=== PATIENT | female | born 1965 | race Caucasian/White ===

== ENCOUNTER 2017-07-24 13:20 | Emergency (ER) | payer OTHER ==
--- NOTE | 2017-07-24 12:46 | XR ---
EXAMINATION TYPE: XR chest 2V DATE OF EXAM: 07/24/2017 COMPARISON: NONE TECHNIQUE: PA and lateral views submitted. HISTORY: Shortness of breath FINDINGS: The lungs are clear and there is no pneumothorax, pleural effusion, or focal pneumonia. There is a large bulla involving the left lung apex which has a similar appearance to the prior CT scan of 06/27. No interstitial edema. Surgical clips in the upper abdomen. IMPRESSION: 1. There is a lucency at the left lung apex which is stable from the previous CAT scan of 06/17/2016 c ompatible with a large bulla. Correlate for history of bullous emphysema.
[2017-07-24] MEDS ORDERED: ALPRAZolam 0.5 MG TAB PO STA (13:27)
--- NOTE | 2017-07-24 14:49 | NM ---
EXAMINATION TYPE: NM pul vent and perfuse DATE OF EXAM: 07/24/2017 COMPARISON: NONE HISTORY: Chest x-ray 07/24/2017 TECHNIQUE: Utilizing inhalation of 62.4 mCi Tc 99m DTPA aerosol and intravenous injection of 4.4 mCi of Tc 99m MAA, ventilation and perfusion images are acquired post injection in multiple projections. FINDINGS: There are multiple small matched defects noted bilaterally. No corresponding chest x-ray abnormality. IMPRESSION: Intermediate probability for pulmonary embolism.
[2017-07-24 15:19] VITALS: PULSE 87; RESP 18
--- NOTE | 2017-07-24 16:03 | ED ---
SOB HPI - General Chief Complaint: Shortness of Breath Time Seen by Provider: 07/24/17 15:23 Source: patient Mode of arrival: ambulatory Limitations: no limitations - History of Present Illness Initial Comments: Patient presents to the emergency Department from an outpatient nuclear medicine scan. Apparently she was seen at another hospital facility. She was sent here to outpatient radiology for a VQ scan. VQ scan shows intermediate probability. Patient at this time denies any fever, chills, chest pain or shortness of breath. She has no belly or back pain. She has no lightheadedness or dizziness. She has no nausea or vomiting. She states that she was not planning on coming to the emergency department. - Related Data Home Medications Medication Instructions Recorded Confirmed Albuterol Inhaler [Ventolin Hfa 1 - 2 puff INHALATION RT-Q6H PRN 07/24/17 Inhaler] Cyclobenzaprine [Flexeril] 5 mg PO DAILY PRN 07/24/17 07/24/17 HYDROcodone/APAP 5-325MG [[place] 1 tab PO Q6H PRN 07/24/17 07/24/17 5-325] Ibuprofen [Motrin] 600 mg PO Q6H PRN 07/24/17 07/24/17 Sulfamethox-Tmp 800-160Mg [Bactrim 1 tab PO Q12HR 07/24/17 07/24/17 DS 800-160 mg] Umeclidinium [place] [Incruse 1 puff INHALATION RT-DAILY 07/24/17 07/24/17 Ellipta] buPROPion [Wellbutrin] 75 mg PO DAILY 07/24/17 07/24/17 traMADol HCL [Ultram] 50 mg PO Q8H PRN 07/24/17 07/24/17 Allergies Allergy/AdvReac Type Severity Reaction Status Date / Time codeine Allergy Unknown Verified 07/24/17 15:35 Penicillins Allergy Unknown Verified 07/24/17 15:35 Review of Systems ROS Statement: Those systems with pertinent positive or pertinent negative responses have been documented in the HPI. ROS Other: All systems not noted in ROS Statement are negative. Past Medical History Past Medical History: No Reported History History of Any Multi-Drug Resistant Organisms: None Reported Past Surgical History: Cholecystectomy, Tubal Ligation Additional Past Surgical History / Comment(s): facial Past Psychological History: No Psychological Hx Reported Smoking Status: Current every day smoker Past Alcohol Use History: Rare Past Drug Use History: None Reported General Exam Limitations: no limitations General appearance: alert, in no apparent distress Head exam: Present: atraumatic, normocephalic, normal inspection Eye exam: Present: normal appearance, PERRL, EOMI. Absent: scleral icterus, conjunctival injection, periorbital swelling ENT exam: Present: normal exam, mucous membranes moist Neck exam: Present: normal inspection. Absent: tenderness, meningismus, lymphadenopathy Respiratory exam: Present: normal lung sounds bilaterally. Absent: respiratory distress, wheezes, rales, rhonchi, stridor Cardiovascular Exam: Present: regular rate, normal rhythm, normal heart sounds. Absent: systolic murmur, diastolic murmur, rubs, gallop, clicks GI/Abdominal exam: Present: soft, normal bowel sounds. Absent: distended, tenderness, guarding, rebound, rigid Extremities exam: Present: normal inspection, full ROM, normal capillary refill. Absent: tenderness, pedal edema, joint swelling, calf tenderness Back exam: Present: normal inspection Neurological exam: Present: alert, oriented X3, CN II-XII intact Psychiatric exam: Present: normal affect, normal mood Skin exam: Present: warm, dry, intact, normal color. Absent: rash Course Vital Signs 07/24/17 07/24/17 15:16 15:31 Temperature 98.5 F Pulse Rate 87 Respiratory 18 18 Rate Blood Pressure 120/81 O2 Sat by Pulse 98 Oximetry Medical Decision Making - Medical Decision Making Patient presented with a history of COPD, recent VQ scan of intermediate probability. However, she has a history of severe COPD with pulmonary blebs, thereby making this an inaccurate test. A d-dimer is obtained which is negative. Therefore, I do not believe there is any evidence of any abnormal blood clotting disorder. There is no reason to believe she has a DVT or pulmonary embolism today. She has no other problems or complaints. I spoke with her physician, Dr. Lafleur, on the phone. He does not believe the patient was supposed to be going to the emerge department. He states that she can be discharged as she has a follow-up appointment in his office. Patient has no other proms or complaints, and no reason for additional workup. She is stable for discharge. I encouraged her to return to the emergency department immediately if she develops any symptoms, problems, complaints of any kind whatsoever and to return to see us again anytime she might need us. She is agreeable with this plan. - Lab Data Lab Results 07/24/17 Range/Units 14:15 D-Dimer 0.43 (<0.60) mg/L FEU 07/24/17 16:03 Twelve-lead EKG shows ventricular rate 81 bpm, normal AL interval and QRS complex is, no ST elevation or depression, interpreted by me as normal sinus rhythm. Disposition Clinical Impression: COPD (chronic obstructive pulmonary disease) Disposition: HOME SELF-CARE Condition: Good Instructions: COPD (Chronic Obstructive Pulmonary Disease) (ED) Referrals: Eder Lafleur MD [Primary Care Provider] - 1-2 days Rhina Liz NPC [REFERRING] - 1-2 days Time of Disposition: 16:18
[2017-07-24 16:35] VITALS: BP 135/87; TEMP 97
== END 2017-07-24 16:33 | disposition home or self-care (01) ==
LOC: EC 13:20
DX: J44.9 Chronic obstructive pulmonary disease, unspecified (principal); F17.200 Nicotine dependence, unspecified, uncomplicated; Z79.899 Other long term (current) drug therapy
CPT/HCPCS: 99285; 93005; 85379; 71020; 78582; A9540; A9567

== ENCOUNTER 2017-09-24 10:55 | Observation (INO) | payer OTHER ==
[2017-09-24] MEDS ORDERED: ASPIRIN 81 MG PO STA (11:19)
[2017-09-24] MEDS ORDERED: NITROGLYCERIN OINT 1 INCH/GM PACKET TOPICAL STA (11:19)
[2017-09-24] MEDS ORDERED: LORazepam 2 MG/ML INJ IV STA (11:20)
--- NOTE | 2017-09-24 11:23 | ED ---
General Adult HPI - General Chief complaint: Chest Pain Stated complaint: Chest pain/sob Time Seen by Provider: 09/24/17 11:00 Source: patient, RN notes reviewed Mode of arrival: wheelchair Limitations: no limitations - History of Present Illness Initial comments: This is a 52-year-old female who presents to the emergency department with a past history of hypertension and a smoking history. Patient comes in today stating that she has had intermittent chest pain which radiates to her right arm over the last couple of days. Patient states the pain lasted 15-20 minutes and resolves. Patient states she's also been short of breath when she's been having the pain. Patient denies any diaphoresis. Patient denies any nausea or vomiting. Patient states her grandmother had heart disease. Patient denies any recent fever chills or cough. Patient denies any calf pain patient denies any leg swelling. Patient denies lightheadedness dizziness or near syncopal episode. Patient denies headache patient denies numbness weakness. Patient denies any abdominal pain patient denies any vomiting or diarrhea. - Related Data Home Medications Medication Instructions Recorded Confirmed No Known Home Medications [No 09/24/17 09/24/17 Known Home Medications] Allergies Allergy/AdvReac Type Severity Reaction Status Date / Time codeine Allergy Unknown Verified 09/24/17 11:23 Penicillins Allergy Unknown Verified 09/24/17 11:23 Review of Systems ROS Statement: Those systems with pertinent positive or pertinent negative responses have been documented in the HPI. ROS Other: All systems not noted in ROS Statement are negative. Past Medical History Past Medical History: Heart Failure, COPD History of Any Multi-Drug Resistant Organisms: None Reported Past Surgical History: Cholecystectomy, Tubal Ligation Additional Past Surgical History / Comment(s): lipoma removed, facial Past Psychological History: No Psychological Hx Reported Smoking Status: Current every day smoker Past Alcohol Use History: Rare Past Drug Use History: None Reported General Exam - General Exam Comments Initial Comments: GENERAL: Patient is well-developed and well-nourished. Patient is nontoxic and well- hydrated and is in mild distress. ENT: Neck is soft and supple. No significant lymphadenopathy is noted. Oropharynx is clear. Moist mucous membranes. Neck has full range of motion without eliciting any pain. EYES: The sclera were anicteric and conjunctiva were pink and moist. Extraocular movements were intact and pupils were equal round and reactive to light. Eyelids were unremarkable. PULMONARY: Unlabored respirations. Good breath sounds bilaterally. No audible rales rhonchi or wheezing was noted. CARDIOVASCULAR: There is a regular rate and rhythm without any murmurs gallops or rubs. ABDOMEN: Soft and nontender with normal bowel sounds. No palpable organomegaly was noted. There is no palpable pulsatile mass. SKIN: Skin is clear with no lesions or rashes and otherwise unremarkable. NEUROLOGIC: Patient is alert and oriented x3. Cranial nerves II through XII are grossly intact. Motor and sensory are also intact. Normal speech, volume and content. Symmetrical smile. MUSCULOSKELETAL: Normal extremities with adequate strength and full range of motion. No lower extremity swelling or edema. No calf tenderness. LYMPHATICS: No significant lymphadenopathy is noted PSYCHIATRIC: Normal psychiatric evaluation. Normal interpersonal interactions appears functionally intact in deals appropriately with others. Patient is moderately anxious Limitations: no limitations Course Vital Signs 09/24/17 09/24/17 09/24/17 10:56 11:21 11:58 Temperature 97.4 F L Pulse Rate 117 H 98 Pulse Rate [ 104 H [employer] ] Respiratory 18 16 Rate Blood Pressure 185/94 158/77 O2 Sat by Pulse 99 96 Oximetry Medical Decision Making - Medical Decision Making Patient's EKG shows sinus tachycardia 105 bpm OH interval is 146 QRS is 66 QT interval 344 QTC is 454. Patient's EKG shows no ST segment elevation or depression or T wave abnormalities are noted. Chest x-ray showed no acute abnormality. Patient was started on heparin because of her intermittent symptoms which are consistent with unstable angina. I spoke with Dr. Martinez he agreed to admit the patient admitted the patient I consult to cardiology I continue the patient heparin and aspirin and Nitropaste on the floor. - Lab Data Result diagrams: 09/24/17 11:15 09/24/17 11:15 Lab Results 09/24/17 09/24/17 09/24/17 Range/Units 11:15 11:15 11:15 WBC 9.4 (3.8-10.6) k/uL RBC 5.48 H (3.80-5.40) m/uL Hgb 16.0 (11.4-16.0) gm/dL Hct 48.2 H (34.0-46.0) % MCV 88.0 (80.0-100.0) fL MCH 29.2 (25.0-35.0) pg MCHC 33.2 (31.0-37.0) g/dL RDW 12.2 (11.5-15.5) % Plt Count 329 (150-450) k/uL Neutrophils % 41 % Lymphocytes % 49 % Monocytes % 5 % Eosinophils % 1 % Basophils % 1 % Neutrophils # 3.8 (1.3-7.7) k/uL Lymphocytes # 4.6 (1.0-4.8) k/uL Monocytes # 0.5 (0-1.0) k/uL Eosinophils # 0.1 (0-0.7) k/uL Basophils # 0.1 (0-0.2) k/uL Sodium 142 (137-145) mmol/L Potassium 4.0 (3.5-5.1) mmol/L Chloride 105 (98-107) mmol/L Carbon Dioxide 24 (22-30) mmol/L Anion Gap 13 mmol/L BUN 11 (7-17) mg/dL Creatinine 0.97 (0.52-1.04) mg/dL Est GFR (MDRD) Af Amer >60 (>60 ml/min/1.73 sqM) Est GFR (MDRD) Non-Af >60 (>60 ml/min/1.73 sqM) Glucose 108 H (74-99) mg/dL Calcium 10.5 H (8.4-10.2) mg/dL Magnesium 2.1 (1.6-2.3) mg/dL Total Bilirubin 0.7 (0.2-1.3) mg/dL AST 26 (14-36) U/L ALT 25 (9-52) U/L Alkaline Phosphatase 127 H (38-126) U/L Total Creatine Kinase 98 (30-135) U/L CK-MB (CK-2) <0.2 (0.0-2.4) ng/mL CK-MB (CK-2) Rel Index Troponin I <0.012 (0.000-0.034) ng/mL Total Protein 8.5 H (6.3-8.2) g/dL Albumin 4.6 (3.5-5.0) g/dL Critical Care Time Critical Care Time: Yes Total Critical Care Time: 35 Disposition Clinical Impression: Unstable angina pectoris Disposition: ADMITTED IP TO THIS HOSP Referrals: Gee Martinez MD [Primary Care Provider] - 1-2 days Time of Disposition: 12:56
[2017-09-24 11:36] LABS: Basophils # (A) 0.1 k/uL (0-0.2); Basophils % (A) 1 %; Eosinophils # (A) 0.1 k/uL (0-0.7); Eosinophils % (A) 1 %; HCT 48.2 % (34.0-46.0); Lymphocytes # (A) 4.6 k/uL (1.0-4.8); Lymphocytes % (A) 49 %; MCH 29.2 pg (25.0-35.0); MCHC 33.2 g/dL (31.0-37.0); Mean Platelet Volume 6.6; Monocytes # (A) 0.5 k/uL (0-1.0); Monocytes % (A) 5 %; Neutrophils # (A) 3.8 k/uL (1.3-7.7); Neutrophils % (A) 41 %; Platelet Count 329 k/uL (150-450); RBC 5.48 m/uL (3.80-5.40); RDW 12.2 % (11.5-15.5); WBC 9.4 k/uL (3.8-10.6)
[2017-09-24 11:53] LABS: ALT 25 U/L (9-52); AST 26 U/L (14-36); Albumin 4.6 g/dL (3.5-5.0); Alkaline Phosphatase 127 U/L (38-126); Anion Gap 13 mmol/L; Blood Urea Nitrogen 11 mg/dL (7-17); Calcium 10.5 mg/dL (8.4-10.2); Carbon Dioxide 24 mmol/L (22-30); Chloride 105 mmol/L (98-107); Glucose 108 mg/dL (74-99); Magnesium 2.1 mg/dL (1.6-2.3); Sodium 142 mmol/L (137-145); Total Bilirubin 0.7 mg/dL (0.2-1.3); Total Protein 8.5 g/dL (6.3-8.2)
[2017-09-24 11:58] LABS: Creatine Kinase 98 U/L (30-135)
--- NOTE | 2017-09-24 12:05 | XR ---
EXAMINATION TYPE: XR chest 2V DATE OF EXAM: 09/24/2017 COMPARISON: 07/24/2017 HISTORY: Chest pain and shortness of breath and emphysema TECHNIQUE: Frontal and lateral views of the chest are obtained. FINDINGS: There is no focal air space opacity, pleural effusion, or pneumothorax seen. The cardiac silhouette size is within normal limits. The osseous structures are intact. Bullous emphysematous c hanges of the left lung apex are again demonstrated. IMPRESSION: No acute cardiopulmonary process, unchanged from the prior. Left apical bullous emphysem a is unchanged.
[2017-09-24 12:11] LABS: Creatine Kinase MB <0.2 ng/mL (0.0-2.4); Troponin I <0.012 ng/mL (0.000-0.034)
[2017-09-24] MEDS ORDERED: NITROGLYCERIN SL TABS 0.4 MG TAB SUBLINGUAL PRN (12:57)
[2017-09-24] MEDS ORDERED: HEPARIN SODIUM,PORCINE 5,000 UNIT/ML 1 ML VIAL IV ONE (12:59)
[2017-09-24] MEDS ORDERED: LORazepam 2 MG/ML INJ IV PRN (12:59)
[2017-09-24] MEDS ORDERED: HEPARIN SOD,PORK IN 0.45% NACL 25,000 UNIT in 0.45% NACL 1 500ML.BAG IV SCH (13:00)
[2017-09-24 13:04] LABS: Partial Thromboplastin Time 21.2 sec (22.0-30.0)
--- NOTE | 2017-09-24 15:54 | HP ---
HISTORY AND PHYSICAL DATE OF ADMISSION: 09/24/2017 CHIEF COMPLAINTS: Chest pain and shortness of breath. This is a 52-year-old white female who was brought to the emergency room with the chief complaint of chest pain. The patient was having pressure-like midsternal chest pain for the past 2-3 days. This came intermittently and lasted for about 30 minutes. This was associated with increasing shortness of breath and also sometimes the pressure radiates to the back. The patient denies any cough, but she is known to have chronic obstructive pulmonary disease and emphysema. In the ER, her EKG did not show any acute changes. Her chest x-ray showed left apical bullous emphysema and COPD, but there was no acute process. The cardiac enzymes are within normal limits, troponin less than 0.012. CBC showed a WBC count of 9.4, hemoglobin 16, platelet count of 329,000; sodium 142, potassium 4, BUN 11, creatinine 0.97, glucose 108. PAST MEDICAL HISTORY: 1. She is known to have chronic obstructive pulmonary disease. 2. Hypertensive cardiovascular disease, but patient has not been taking any medication now currently. SOCIAL HISTORY: She is a smoker and she has been smoking for over 35 years and she has been smoking 1- 1/2 packs of cigarettes a day, but now she has cut down to half pack of cigarettes per day. She also has a history of bullous emphysema on the left apex. About 3 months ago she went to [facility] and she was told she has congestive heart failure and chronic obstructive pulmonary disease, but she has not been taking any medications. ALLERGIES: She has a QUESTIONABLE ALLERGY TO PENICILLIN AND CODEINE. FAMILY HISTORY: The patient's mother had chronic obstructive lung disease and father had lung cancer. REVIEW OF SYSTEMS: Patient denies any headaches. Appetite had has been good, bowels regular. She has had chest pain, as mentioned before. She also has shortness of breath, and the dyspnea especially gets worse when she gets chest pain. She has no abdominal pain. She has no polyuria or dysuria. She has no neurological symptoms. PHYSICAL EXAMINATION: Physical examination reveals a 52-year-old female who is still complaining of some chest pressure and some shortness of breath, but she is alert and oriented. There is no jaundice. There is no generalized lymphadenopathy. There are no petechiae or bruises. Temperature 97.7, pulse 104 per minute. Blood pressure at the time of arrival was 185/94 but later came down to 158/77. Examination of the ENT negative. NECK: Supple. There is no jugular venous distention. There is no goiter and there is no carotid bruit. Heart is in sinus tachycardia with a grade 2/6 systolic murmur heard over the precordium. LUNGS: Clear to auscultation and percussion. ABDOMEN: Soft and nontender. There is no mass palpable. Examination of the lower extremities reveals no pitting edema. Neurologic examination does not reveal any localizing signs. IMPRESSION: 1. Chest pain. 2. Rule out unstable angina. 3. Rule out coronary artery disease. 4. Chronic obstructive pulmonary disease with bullous emphysema involving the left upper lobe. 5. Hypertensive cardiovascular disease. PLAN: Patient will be admitted to hospital. Will get serial EKGs and cardiac enzymes and her heart will be monitored on telemetry. Also we will get a cardiology consultation. Overall prognosis is guarded. The diagnosis, prognosis and therapeutic plans were discussed in detail with the patient. MMODL / KEISHAN: [id number] /
[2017-09-24 18:50] LABS: Creatine Kinase 72 U/L (30-135)
[2017-09-24 19:03] LABS: Creatine Kinase MB <0.2 ng/mL (0.0-2.4); Troponin I <0.012 ng/mL (0.000-0.034)
[2017-09-24] MEDS: HEPARIN SODIUM,PORCINE 5,000 UNIT/ML 1 ML VIAL IV PRN (19:05)
[2017-09-24 19:38] VITALS: RESP 18
[2017-09-24] MEDS: NITROGLYCERIN OINT 1 INCH/GM PACKET TOPICAL SCH ×2 (20:09→23:50)
[2017-09-24] MEDS: NICOTINE 14MG/24HR PATCH TRANSDERM SCH (20:09)
[2017-09-25 00:20] LABS: Cholesterol 262 mg/dL (<200); HDL Cholesterol 49 mg/dL (40-60); LDL Cholesterol,Calculated 182 mg/dL (0-99); Triglycerides 156 mg/dL (<150)
[2017-09-25] MEDS: HEPARIN SODIUM,PORCINE 5,000 UNIT/ML 1 ML VIAL IV PRN (01:08)
[2017-09-25 01:16] LABS: Creatine Kinase 67 U/L (30-135)
[2017-09-25 01:47] LABS: Creatine Kinase MB <0.2 ng/mL (0.0-2.4); Troponin I <0.012 ng/mL (0.000-0.034)
[2017-09-25] MEDS: NITROGLYCERIN OINT 1 INCH/GM PACKET TOPICAL SCH (06:34)
[2017-09-25] MEDS ORDERED: ASPIRIN 325 MG TAB PO SCH (09:00)
[2017-09-25] MEDS: NICOTINE 14MG/24HR PATCH TRANSDERM SCH (09:15)
--- NOTE | 2017-09-25 09:57 | ECHOF ---
Referral Reason:chest pain MEASUREMENTS -------- HEIGHT: 167.6 cm WEIGHT: 56.7 kg BP: 122/77 RVIDd: 2.8 cm (< 3.3) IVSd: 0.9 cm (0.6 - 1.1) LVIDd: 3.6 cm (3.9 - 5.3) LVPWd: 1.1 cm (0.6 - 1.1) IVSs: 1.3 cm LVIDs: 2.2 cm LVPWs: 1.3 cm LA Diam: 2.4 cm (2.7 - 3.8) LAESV Index (A-L): 15.10 ml/m Ao Diam: 3.2 cm (2.0 - 3.7) AV Cusp: 2.0 cm (1.5 - 2.6) MV EXCURSION: 13.536 mm (> 18.000) MV EF SLOPE: 38 mm/s (70 - 150) EPSS: 0.2 cm MV E Oscar: 0.64 m/s MV DecT: 277 ms MV A Oscar: 0.75 m/s MV E/A Ratio: 0.86 FINDINGS -------- Sinus rhythm. This was a technically adequate study. The left ventricular size is normal. Left ventricular wall thickness is normal. Overall left vent ricular systolic function is normal with, an EF between 60 - 65 %. The right ventricle is normal in size. Normal LA size by volume 22+/-6 ml/m2. The right atrium is normal in size. The aortic valve was not well visualized. Mild mitral annular calcification present. The tricuspid valve appears structurally normal. There is no pulmonic regurgitation present. The aortic root size is normal. IVC Not well visulized. There is no pericardial effusion. CONCLUSIONS -------- 1. Sinus rhythm. 2. This was a technically adequate study. 3. The left ventricular size is normal. 4. Left ventricular wall thickness is normal. 5. Overall left ventricular systolic function is normal with, an EF between 60 - 65 %. 6. The right ventricle is normal in size. 7. Normal LA size by volume 22+/-6 ml/m2. 8. The right atrium is normal in size. 9. The aortic valve was not well visualized. 10. Mild mitral annular calcification present. 11. The tricuspid valve appears structurally normal. 12. There is no pulmonic regurgitation present. 13. The aortic root size is normal. 14. IVC Not well visulized. 15. There is no pericardial effusion. BREEDER SERVICE TECHNICIAN: Andria Ruiz RDCS
--- NOTE | 2017-09-25 10:36 | P.CRDCN ---
History of Present Illness Consult date: 09/25/17 History of present illness: Mrs. Howard is a pleasant 52-year-old female with past medical history significant for COPD, hypertension, daily marijuana use and chronic tobacco use. She denies history of coronary artery disease and has never seen a tube maker for any reason. Over the previous few days she has been experiencing mid-sternal chest heaviness with radiation into the right arm described as a muscle ache for the past few days. This is associated with shortness of breath, palpitations and dizziness. She denies associated diaphoresis, nausea or vomiting. The pain is constant with no specific alleviating or aggravating factors. She has not been coughing recently and denies fever/chills. EKG reveals sinus mechanism with no acute ST or T-wave abnormalities. Chest xray is negative for an acute cardiopulmonary process. Laboratory data reviewed, hemoglobin 16, platelets 329, potassium 4, magnesium 2.1, creatinine 0.97, LDL 182, HDL 49, triglycerides 156, total cholesterol 262 , cardiac enzymes negative 3. She takes no home medications. There is no old echocardiogram, stress test or catheterization to review. Review of Systems At the time of my exam: CONSTITUTIONAL: Denies fever. Denies chills. EYES: Denies blurred vision. Denies vision changes. Denies eye pain. EARS, NOSE, MOUTH & THROAT: Denies headache. Denies sore throat. Denies ear pain. CARDIOVASCULAR: Denies chest pain. Denies shortness of breath. Denies orthopnea. Denies PND. Denies palpitations. RESPIRATORY: Denies cough. GASTROINTESTINAL: Denies abdominal pain. Denies diarrhea. Denies constipation. Denies nausea. Denies vomiting. MUSCULOSKELETAL: Complains of right arm achiness. INTEGUMENTARY: Denies pruitis. Denies rash. NEUROLOGIC: Denies numbness. Denies tingling. Denies weakness. PSYCHIATRIC: Denies anxiety. Denies depression. ENDOCRINE: Denies fatigue. Denies weight change. Denies polydipsia. Denies polyurina. GENITOURINARY: Denies burning, hematuria or urgency with micturation. HEMATOLOGIC: Denies history of anemia. Denies bleeding. Past Medical History Past Medical History: COPD, Hypertension, Osteoarthritis (OA), Pneumonia Additional Past Medical History / Comment(s): Bronhitis, pneumonia as a child, chronic low back pain, spinal stenosis, DDD, spinal bifida, chronic constipation , migraines. History of Any Multi-Drug Resistant Organisms: None Reported Past Surgical History: Cholecystectomy, Tubal Ligation Additional Past Surgical History / Comment(s): Lipoma removed from below L breast, rhinoplasty. Past Anesthesia/Blood Transfusion Reactions: No Reported Reaction Smoking Status: Current every day smoker - Past Family History Mother Family Medical History: Respiratory Disorder Additional Family Medical History / Comment(s): Mother is from pulmonary disease. Father Family Medical History: Cancer Additional Family Medical History / Comment(s): Father at age 50 yrs from lung cancer. He was a smoker. Medications and Allergies Home Medications Medication Instructions Recorded Confirmed Type No Known Home Medications [No 09/24/17 09/24/17 History Known Home Medications] Allergies Allergy/AdvReac Type Severity Reaction Status Date / Time codeine Allergy Unknown Verified 09/24/17 11:23 Penicillins Allergy Unknown Verified 09/24/17 11:23 Physical Exam Vitals: Vital Signs Temp Pulse Pulse Pulse Resp BP BP 09/25/17 04:00 97.6 F 78 18 132/71 09/24/17 23:52 97.6 F 84 18 152/91 09/24/17 23:42 18 09/24/17 19:59 18 09/24/17 19:36 98.0 F 79 18 118/71 09/24/17 14:46 09/24/17 14:45 97.9 F 80 16 144/77 09/24/17 13:00 97.3 F L 89 16 146/86 09/24/17 11:58 98 16 158/77 09/24/17 11:21 104 H 09/24/17 10:56 97.4 F L 117 H 18 185/94 Pulse Ox 09/25/17 04:00 100 09/24/17 23:52 98 09/24/17 23:42 09/24/17 19:59 09/24/17 19:36 97 09/24/17 14:46 98 09/24/17 14:45 98 09/24/17 13:00 97 09/24/17 11:58 96 09/24/17 11:21 09/24/17 10:56 99 Intake and Output 01/16/18 01/17/18 01/17/18 22:59 06:59 14:59 Intake Total 843.365 114.993 Balance 843.365 114.993 Intake: IV 120 0.9@20 60 Heparin Sod,Pork in 0.45% 60 NaCl 25,000 unit In 0.45 % NaCl 1 500ml.bag @ 12 UNITS/KG/HR 15.02 mls/hr IV .Q24H NBA Rx#: [id number] Intake, IV Titration 86.365 114.993 Amount Heparin Sod,Pork in 0.45% 86.365 114.993 NaCl 25,000 unit In 0.45 % NaCl 1 500ml.bag @ 12 UNITS/KG/HR 15.02 mls/hr IV .Q24H NBA Rx#: [id number] Oral 637 Other: Voiding Method Toilet Toilet # Voids 2 1 Blood pressure 132/71 heart rate 78 afebrile GENERAL: This is a 52-year-old female in no apparent distress at the time of my examination. HEENT: Head is atraumatic, normocephalic. Pupils are equal, round. Sclerae anicteric. Conjunctivae are clear. Mucous membranes of the mouth are moist. Neck is supple. There is no jugular venous distention. No carotid bruit is heard. LUNGS: Clear to auscultation no wheezes, rales or rhonchi. No chest wall tenderness is noted on palpation or with deep breathing. HEART: Regular rate and rhythm without murmurs, rubs or gallops. S1 and S2 heard. ABDOMEN: Soft, nontender. Bowel sounds are heard. No organomegaly noted. EXTREMITIES: No evidence of peripheral edema and no calf tenderness noted. VASCULAR: Radial and dorsalis pedis pulses palpated, no evidence of clubbing. NEUROLOGIC: Patient is awake, alert and oriented x3. Results 09/24/17 11:15 09/24/17 11:15 Cardiac Enzymes 09/24/17 09/24/17 09/24/17 Range/Units 11:15 11:15 18:07 AST 26 (14-36) U/L CK-MB (CK-2) <0.2 <0.2 (0.0-2.4) ng/mL Troponin I <0.012 <0.012 (0.000-0.034) ng/mL 09/25/17 Range/Units 00:30 AST (14-36) U/L CK-MB (CK-2) <0.2 (0.0-2.4) ng/mL Troponin I <0.012 (0.000-0.034) ng/mL Coagulation 09/24/17 09/24/17 09/25/17 Range/Units 12:09 18:07 00:30 PT 10.0 (9.0-12.0) sec APTT 21.2 L 33.0 H 36.9 H (22.0-30.0) sec 09/25/17 Range/Units 06:59 PT (9.0-12.0) sec APTT 60.5 H (22.0-30.0) sec Lipids 09/24/17 Range/Units 11:15 Triglycerides 156 H (<150) mg/dL Cholesterol 262 H (<200) mg/dL HDL Cholesterol 49 (40-60) mg/dL CBC 09/24/17 Range/Units 11:15 WBC 9.4 (3.8-10.6) k/uL RBC 5.48 H (3.80-5.40) m/uL Hgb 16.0 (11.4-16.0) gm/dL Hct 48.2 H (34.0-46.0) % Plt Count 329 (150-450) k/uL Comprehensive Metabolic Panel 09/24/17 Range/Units 11:15 Sodium 142 (137-145) mmol/L Potassium 4.0 (3.5-5.1) mmol/L Chloride 105 (98-107) mmol/L Carbon Dioxide 24 (22-30) mmol/L BUN 11 (7-17) mg/dL Creatinine 0.97 (0.52-1.04) mg/dL Glucose 108 H (74-99) mg/dL Calcium 10.5 H (8.4-10.2) mg/dL AST 26 (14-36) U/L ALT 25 (9-52) U/L Alkaline Phosphatase 127 H (38-126) U/L Total Protein 8.5 H (6.3-8.2) g/dL Albumin 4.6 (3.5-5.0) g/dL Current Medications Generic Name Dose Route Start Last Admin Trade Name Freq PRN Reason Stop Dose Admin Heparin Sodium (Porcine) 0 unit 09/24/17 18:59 01/17/18 01:08 Heparin IV 2,850 unit PER PROTOCOL PRN Administration Low PTT Protocol Lorazepam 1 mg 09/24/17 12:59 09/25/17 01:16 Ativan IV 1 mg Q6HR PRN Administration Anxiety Nicotine 1 patch 09/24/17 20:00 09/24/17 20:09 Habitrol 14mg/24hr Patch TRANSDERM 1 patch DAILY NBA Administration Nitroglycerin 0.4 mg 09/24/17 12:57 Nitrostat SUBLINGUAL Q5M PRN Chest Pain Intake and Output 09/24/17 09/25/17 09/25/17 22:59 06:59 14:59 Intake Total 843.365 114.993 Balance 843.365 114.993 Intake: IV 120 0.9@20 60 Heparin Sod,Pork in 0.45% 60 NaCl 25,000 unit In 0.45 % NaCl 1 500ml.bag @ 12 UNITS/KG/HR 15.02 mls/hr IV .Q24H NBA Rx#: [id number] Intake, IV Titration 86.365 114.993 Amount Heparin Sod,Pork in 0.45% 86.365 114.993 NaCl 25,000 unit In 0.45 % NaCl 1 500ml.bag @ 12 UNITS/KG/HR 15.02 mls/hr IV .Q24H NBA Rx#: [id number] Oral 637 Other: Voiding Method Toilet Toilet # Voids 2 1 09/24/17 11:15 09/24/17 11:15 Assessment and Plan Assessment: ASSESSMENT 1. Chest pain, atypical with normal EKG and negative cardiac enzymes. Acute coronary event has been ruled out. 2. Chronic tobacco abuse 3. Dyslipidemia PLAN Obtain 2D echocardiogram and doppler study to assess cardiac structure and function. Cardiac risk factors include tobacco abuse and dyslipidema we would recommend proceeding with exercise stress echocardiogram to rule out stress induced ischemia. Lifestyle modifications recommended to lower LDL cholesterol as well as smoking cessation. Thank you kindly for this consultation. The above impression and plan of care have been discussed and directed by the signing physician. Coty Cooney, nurse practitioner, acting as scribe for signing physician.
--- NOTE | 2017-09-25 11:28 | ECHOS ---
STRESS ECHOCARDIOGRAM DATE OF SERVICE: 09/25/2017. INDICATIONS: Chest pain. MEDICATIONS: BASELINE HEART RATE: 103 BASELINE BLOOD PRESSURE: 157/70 MAXIMUM HEART RATE: 147 MAXIMUM BLOOD PRESSURE: 205/98 85% MPHR: 145 100% MPHR: 170 METS: 5 MAXIMUM STAGE REACHED: II TOTAL EXERCISE TIME: 4 minutes. CLINICAL INFORMATION: Baseline EKG shows sinus rhythm, normal axis, normal intervals. Patient exercised on Andrew protocol for a total of 4 minutes achieving 5 METs, 86% of predicted maximal heart rate without chest pain or diagnostic ST-segment depression. Baseline echo shows normal left ventricular size, wall motion and systolic function. Postexercise, there is normal hyperdynamic response of all segments of myocardium noted. CONCLUSIONS: 1. Limited exercise tolerance. 2. Negative stress test by EKG criteria. 3. Negative stress echo. MMODL / IJN: [id number] /
[2017-09-25 11:44] VITALS: BP 128/80; PULSE 92; TEMP 98.4
--- NOTE | 2017-10-05 17:43 | DS ---
DISCHARGE SUMMARY DATE OF ADMISSION: 09/24/2017. DATE OF DISCHARGE: 09/25/2017 DISCHARGE DIAGNOSES: 1. Chest pain. 2. Acute costochondritis. 3. Chronic obstructive pulmonary disease. 4. Left apical bullous emphysema. 5. Hypertensive cardiovascular disease. This is a 52-year-old white female who was brought to the emergency room with a chief complaint of chest pain. The patient was having pressure-like midsternal chest pain for the past 2-3 days and this came intermittently and lasted for about 30 minutes. This was associated with increasing shortness of breath and also sometimes radiating to the back. The patient denied any cough, but she was known to have chronic obstructive pulmonary disease and emphysema. Chest x-ray showed COPD with left apical bullous emphysema. The patient was admitted to the hospital for further evaluation and treatment. For details of the physical examination at the time of admission, please refer to the history and physical. HOSPITAL COURSE: The patient was admitted with telemetry and [facility] saw the patient in consultation. She had a stress echo and this was negative. Her vital signs remained stable. There was also tenderness in the costochondral junctions. The stress echo was normal. As the patient was stable, she was discharged home on 09/25/2017 and she was given Voltaren 75 mg p.o. b.i.d. She will be seen in my office for further medical followup in a week's time. We will also at that time refer her to a light armored vehicle officer and we will be monitoring her blood pressure and her cholesterol. If needed, we will place her on appropriate medications. MMODL / IJN: [id number] /
== END 2017-09-25 14:40 | disposition home or self-care (01) ==
LOC: EC 10:55 → 3OBS 12:57
PROVIDERS: ADMIT Internal Medicine; ATTEND Internal Medicine
DX: R07.89 Other chest pain (principal); R06.02 Shortness of breath; R07.2 Precordial pain; R42 Dizziness and giddiness; R00.2 Palpitations; E78.5 Hyperlipidemia, unspecified; I11.0 Hypertensive heart disease with heart failure; J44.9 Chronic obstructive pulmonary disease, unspecified; M19.90 Unspecified osteoarthritis, unspecified site; F17.210 Nicotine dependence, cigarettes, uncomplicated; Z82.5 Family history of asthma and other chronic lower respiratory diseases; Z82.49 Family history of ischemic heart disease and other diseases of the circulatory system; Z80.1 Family history of malignant neoplasm of trachea, bronchus and lung; Z87.01 Personal history of pneumonia (recurrent); Z87.09 Personal history of other diseases of the respiratory system
CPT/HCPCS: 99291; 96375 ×2; 96376 ×4; 96365 ×2; 96366 ×2; 36415; 93005; 93017; 93306; 93350; 80061; 80053; 82550 ×2; 82553 ×2; 83735; 84484 ×2; 85025; 85610; 85730 ×2; 71046; G0378 ×2; S4990 ×2; J2060 ×2; J1644 ×3

== ENCOUNTER → 2017-10-15 | Outpatient (CLI) | payer OTHER ==
[2017-10-15 10:05] LABS: HCT 47.3 % (34.0-46.0); HGB 15.3 gm/dL (11.4-16.0); MCH 29.2 pg (25.0-35.0); MCHC 32.3 g/dL (31.0-37.0); MCV 90.2 fL (80.0-100.0); Mean Platelet Volume 6.2; Platelet Count 475 k/uL (150-450); RBC 5.25 m/uL (3.80-5.40); RDW 12.6 % (11.5-15.5); WBC 9.2 k/uL (3.8-10.6)
[2017-10-15 10:39] LABS: Albumin 4.5 g/dL (3.5-5.0); Calcium 10.4 mg/dL (8.4-10.2); Potassium 4.5 mmol/L (3.5-5.1); Total Bilirubin 0.6 mg/dL (0.2-1.3); Total Protein 7.8 g/dL (6.3-8.2)
[2017-10-15 10:53] LABS: T4, Free (Free Thyroxine) 1.08 ng/dL (0.78-2.19)
[2017-10-18 10:26] LABS: Alt. alternata IgE Class CLASS 0; Alternaria alternata IgE <0.35 kU/L (<0.35); Asperg. fumagatus IgE <0.35 kU/L (<0.35); Asperg. fumagatus IgE Class CLASS 0; Bermuda Grass IgE <0.35 kU/L (<0.35); Birch(Com.Silvr) IgE <0.35 kU/L (<0.35); Birch(Com.Silvr) IgE Class CLASS 0; Cat Epith & Dander IgE <0.35 kU/L (<0.35); Cat Epith & Dander IgE Class CLASS 0; Clad herbarum IgE <0.35 kU/L (<0.35); Cockroach IgE <0.35 kU/L (<0.35); Cottonwood IgE <0.35 kU/L (<0.35); Dermato. Pteronyssinus IgE <0.35 kU/L (<0.35); Dermato. farinae IgE <0.35 kU/L (<0.35); Dermato. farinae IgE Class CLASS 0; Dog Dander IgE <0.35 kU/L (<0.35); Elm IgE <0.35 kU/L (<0.35); Maple (Box Elder) IgE <0.35 kU/L (<0.35); Maple (Box Elder) IgE Class CLASS 0; Mountain Cedar IgE <0.35 kU/L (<0.35); Mountain Cedar IgE Class CLASS 0; Mouse Urine IgE Class CLASS 0; Nettle IgE <0.35 kU/L (<0.35); Nettle IgE Class CLASS 0; Oak IgE <0.35 kU/L (<0.35); Penicillium notatum IgE Class CLASS 0; Rough Marshelder IgE <0.35 kU/L (<0.35); Rough Marshelder IgE Class CLASS 0; Timothy Grass IgE <0.35 kU/L (<0.35); White Ash IgE Class CLASS 0
[2017-10-21 20:51] LABS: Aspergillus fumigatus IgG Not detected (Not detected); Aureobasidium pullulans IgG 7.1 mcg/mL (< 13.6); Cladosporium herbarium IgG 13.6 mcg/mL (< 14.7); Phoma ssp. IgG 7.2 mcg/mL (< 6.6); Saccaharomospora viridis Not detected (Not detected); Saccaharopoly. rectivirgula Not detected (Not detected)
== END | disposition home or self-care (01) ==
LOC: LABWHC1 09:13
PROVIDERS: ATTEND Internal Medicine Sleep Medicine
DX: I11.9 Hypertensive heart disease without heart failure (principal); E78.2 Mixed hyperlipidemia; K21.0 Gastro-esophageal reflux disease with esophagitis; B44.81 Allergic bronchopulmonary aspergillosis
CPT/HCPCS: 36415; 80053; 80061; 82785; 84439; 84443; 85027; 86001; 86003; 86606; 86609

== ENCOUNTER → 2017-10-23 | Outpatient (CLI) | payer OTHER ==
--- NOTE | 2017-10-23 11:45 | CT ---
EXAMINATION TYPE: CT chest w con DATE OF EXAM: 10/23/2017 COMPARISON: 06/17/2016 HISTORY: 52-year-old female Solitary pulmonary nodule TECHNIQUE: Contiguous axial scanning of the chest after the administration of 100 mL of Omnipaque 300 . Coronal/sagittal reconstructions performed. CT DLP: 143.9mGycm. Automatic exposure control utilized for a dose reduction. FINDINGS: Heart normal size without pericardial effusion. Mildly ectatic ascending aorta at 3.6 cm. Mild atherosclerotic arch calcifications with conventional arch vessel branching anatomy. No thoracic lymphadenopathy. Mild centrilobular emphysema and marked bullous emphysema left upper lobe are redemonstrated. Biapica l pleural parenchymal scarring is noted. Some patchy left upper lobe density along the margin of the bullous changes is stable to slightly decreased from 06/17/2016 suggesting pleural scarring. No consol idation or pleural effusion. No suspicious pulmonary nodule or mass. Visualized upper abdomen shows cortical defect within the right kidney suggesting prior vascular or i nfectious insults. Cholecystectomy clips are noted. Bones: No osseous destructive process. IMPRESSION: 1. COPD with left upper lobe/left apical bullous changes redemonstrated. 2. Patchy density along the margin of the left apical bullae is unchanged to slightly improved sugges ting pleural parenchymal scarring. 3. No suspicious pulmonary nodule or mass is identified.
== END | disposition home or self-care (01) ==
LOC: RADCTMAIN 10:56
PROVIDERS: ATTEND Internal Medicine Sleep Medicine
DX: J44.9 Chronic obstructive pulmonary disease, unspecified (principal); R91.8 Other nonspecific abnormal finding of lung field
CPT/HCPCS: 71260; Q9967

== ENCOUNTER → 2017-11-14 | Outpatient (CLI) | payer OTHER ==
--- NOTE | 2017-11-15 12:08 | MM ---
Reason for exam: screening (asymptomatic). Last mammogram was performed 2 years ago. History: Patient is postmenopausal. Family history of breast cancer in maternal aunt and breast cancer in maternal grandmother. Physical Findings: A clinical breast exam by your physician is recommended on an annual basis and results should be correlated with mammographic findings. MG 3D Screening Mammo W/Cad Bilateral CC and MLO view(s) were taken. XCCL view(s) were taken of the right breast. Prior study comparison: November 14, 2015, mammogram. The breast tissue is extremely dense which could obscure a lesion on mammography. Finding #1: There is questionable architectural distortion in the outer quadrant, axilla position of the right breast seen on XCCL view. Finding #2: There are stable typically benign calcifications. There is a chronic nodularity in the right breast, stable. ASSESSMENT: Incomplete: need additional imaging evaluation, BI-RAD 0 RECOMMENDATION: Special view mammogram of the right breast. If lesion persists on supplemental views, image directed ultrasound is recommended. [facility] will attempt to contact patient to return for supplemental views and ultrasound if indicated.
== END | disposition home or self-care (01) ==
LOC: RADMAMWWP 09:03
PROVIDERS: ATTEND Internal Medicine
DX: Z12.31 Encounter for screening mammogram for malignant neoplasm of breast (principal)
CPT/HCPCS: 77063; 77067

== ENCOUNTER → 2017-11-20 | Outpatient (CLI) | payer OTHER ==
--- NOTE | 2017-11-20 09:52 | MM ---
Reason for exam: additional evaluation requested from abnormal screening. Last mammogram was performed less than 1 month ago. History: Patient is postmenopausal. Family history of breast cancer in maternal aunt and breast cancer in maternal grandmother. Physical Findings: Nurse did not find any significant physical abnormalities on exam. MG 3D Work Up W/Cad SAPPHIRE Bilateral LM view(s) were taken. Spot compression CC and spot compression MLO view(s) were taken of the left breast. Prior study comparison: November 14, 2017, bilateral MG 3d screening mammo w/cad. November 14, 2015, mammogram. The breast tissue is heterogeneously dense. This may lower the sensitivity of mammography. Focal asymmetry appears to persist posterior upper outer quadrant right breast. Additional spot 3D views performed on the left as well. The appearance is improved on spot 3D CC and 3D LM. possible nodular asymmetry just below the retroareolar place spot 3D MLO left. These results were verbally communicated with the patient and result sheet given to the patient on 11/20/17. ASSESSMENT: Incomplete: need additional imaging evaluation, BI-RAD 0 RECOMMENDATION: Ultrasound of both breasts. (right upper outer quadrant, left 4-7 o'clock)
--- NOTE | 2017-11-20 09:54 | USB ---
Reason for exam: additional evaluation requested from abnormal screening. History: Patient is postmenopausal. Family history of breast cancer in maternal aunt and breast cancer in maternal grandmother. US Breast Workup Limited SAPPHIRE Right breast ultrasound demonstrates no cystic or solid lesion seen. Right scanned 9-12 o'clock. Left breast ultrasound demonstrates no cystic or solid lesion seen. Left scanned 3-7 o'clock, dense tissues at 4 o'clock. These results were verbally communicated with the patient and result sheet given to the patient on 11/20/17. ASSESSMENT: Probably benign, BI-RAD 3 RECOMMENDATION: Follow-up diagnostic mammogram of both breasts in 6 months.
== END | disposition home or self-care (01) ==
LOC: RADMAMWWP 08:07
PROVIDERS: ATTEND Internal Medicine
DX: R92.8 Other abnormal and inconclusive findings on diagnostic imaging of breast (principal)
CPT/HCPCS: 77066; 76642; G0279

== ENCOUNTER → 2017-11-27 | Outpatient (CLI) | payer OTHER ==
[2017-11-27 10:53] LABS: Calcium 10.1 mg/dL (8.4-10.2)
[2017-11-27 11:00] LABS: Appearance,Urine Clear (Clear); Bilirubin,Urine Negative (Negative); Blood,Urine Negative (Negative); Color,Urine Colorless; Glucose,Urine (UA) Negative (Negative); Ketones,Urine Negative (Negative); Leukocyte Esterase,Urine Negative (Negative); Nitrite,Urine Negative (Negative); PH, Urine 5.5 (5.0-8.0); Protein,Urine Negative (Negative); Specific Gravity,Urine 1.002 (1.001-1.035); Urobilinogen,Urine <2.0 mg/dL (<2.0)
== END | disposition home or self-care (01) ==
LOC: LABWHC1 09:53
PROVIDERS: ATTEND Internal Medicine
DX: R35.0 Frequency of micturition (principal); I11.9 Hypertensive heart disease without heart failure; E83.52 Hypercalcemia
CPT/HCPCS: 36415; 81003; 82310; 82565; 83970; 84520

== ENCOUNTER → 2017-11-27 | Outpatient (CLI) | payer OTHER ==
--- NOTE | 2017-11-27 09:30 | US ---
EXAMINATION TYPE: US kidneys/renal and bladder DATE OF EXAM: 11/27/2017 COMPARISON: NONE CLINICAL HISTORY: Renal failure, Hypercalcemia EXAM MEASUREMENTS: Right Kidney: 8.0 x 2.9 x 3.5 cm Left Kidney: 9.2 x 4.1 x 4.0 cm Right Kidney: No hydronephrosis. No cystic or solid mass visualized. Focal scar is seen. Left Kidney: No hydronephrosis or masses seen Bladder: wnl Bilateral Jets seen: Yes There is no evidence for hydronephrosis at this point in time. No nephrolithiasis is seen. No danilo s are identified. The urinary bladder is anechoic. Bilateral ureteral jets are seen. IMPRESSION: No hydronephrosis or nephrolithiasis. Focal scarring of the right kidney.
== END | disposition home or self-care (01) ==
LOC: RADUSWWP 08:53
PROVIDERS: ATTEND Internal Medicine
DX: N28.89 Other specified disorders of kidney and ureter (principal)
CPT/HCPCS: 76770

== ENCOUNTER 2018-05-17 10:27 | Emergency (ER) | payer OTHER ==
[2018-05-17 10:44] VITALS: BP 154/83; RESP 20; TEMP 98.5
[2018-05-17] MEDS ORDERED: IPRATROPIUM-ALBUTEROL 3 ML NEB INHALATION STA (10:51)
--- NOTE | 2018-05-17 11:06 | XR ---
EXAMINATION TYPE: XR chest 2V DATE OF EXAM: 05/17/2018 HISTORY: Cough/pain. REFERENCE: Previous study dated 09/24/2017. FINDINGS: The lungs are clear. Pleural space are clear. The heart is not enlarged. I suspect emphysem atous change in the left upper lobe. IMPRESSION: NO ACUTE INTRATHORACIC ABNORMALITY.
--- NOTE | 2018-05-17 11:12 | ED ---
URI HPI - General Chief Complaint: Upper Respiratory Infection Stated Complaint: POSS PNEUMONIA Time Seen by Provider: 05/17/18 10:40 Source: patient, RN notes reviewed Mode of arrival: ambulatory Limitations: no limitations - History of Present Illness Initial Comments: 53-year-old female presents emergency Department chief complaint of cough congestion. Patient has COPD continues to smoke. Patient states she has no chest pain no increased shortness breath at this time. She states her cough is productive at time. Patient states that she has mild nasal congestion no known fever no chills no neck pain no headache no dizziness. - Related Data Previous Rx's Medication Instructions Recorded Azithromycin [Zithromax Z-pack] 0 mg PO DIRECTED #1 pack 05/17/18 predniSONE 50 mg PO DAILY #5 tab 05/17/18 Allergies Allergy/AdvReac Type Severity Reaction Status Date / Time codeine Allergy Unknown Verified 05/17/18 10:44 Penicillins Allergy Unknown Verified 05/17/18 10:44 Review of Systems ROS Statement: Those systems with pertinent positive or pertinent negative responses have been documented in the HPI. ROS Other: All systems not noted in ROS Statement are negative. Past Medical History Past Medical History: COPD, Hypertension, Osteoarthritis (OA) Additional Past Medical History / Comment(s): chronic low back pain, spinal stenosis, DDD, spinal bifida, chronic constipation, migraines. History of Any Multi-Drug Resistant Organisms: None Reported Past Surgical History: Cholecystectomy, Tubal Ligation Additional Past Surgical History / Comment(s): Lipoma removed from below L breast, rhinoplasty. Past Anesthesia/Blood Transfusion Reactions: No Reported Reaction Past Psychological History: No Psychological Hx Reported Smoking Status: Current every day smoker Past Alcohol Use History: None Reported Past Drug Use History: Marijuana - Past Family History Mother Family Medical History: Respiratory Disorder Additional Family Medical History / Comment(s): Mother is from pulmonary disease. Father Family Medical History: Cancer Additional Family Medical History / Comment(s): Father at age 50 yrs from lung cancer. He was a smoker. General Exam Limitations: no limitations General appearance: alert, in no apparent distress Head exam: Present: atraumatic, normocephalic, normal inspection Eye exam: Present: normal appearance, PERRL, EOMI. Absent: scleral icterus, conjunctival injection, periorbital swelling ENT exam: Present: normal exam, normal oropharynx, mucous membranes moist, TM's normal bilaterally, normal external ear exam Neck exam: Present: normal inspection, full ROM. Absent: tenderness, meningismus, lymphadenopathy Respiratory exam: Present: wheezes. Absent: normal lung sounds bilaterally, respiratory distress, rales, rhonchi, stridor Cardiovascular Exam: Present: regular rate, normal rhythm, normal heart sounds. Absent: systolic murmur, diastolic murmur, rubs, gallop, clicks Course Vital Signs 05/17/18 10:41 Temperature 98.5 F Pulse Rate 96 Respiratory 20 Rate Blood Pressure 154/83 O2 Sat by Pulse 96 Oximetry Medical Decision Making - Medical Decision Making 53-year-old female presented emergency Department for cough congestion. Patient has mild COPD exacerbation. Patient vitals are stable patient is stable for discharge on steroids azithromycin. Patient will follow-up with her PCP return for any worsening symptoms. Disposition Clinical Impression: COPD exacerbation Disposition: HOME SELF-CARE Condition: Stable Instructions: COPD (Chronic Obstructive Pulmonary Disease) (ED) Additional Instructions: Please return to the Emergency Department if symptoms worsen or any other concerns. Prescriptions: Azithromycin [Zithromax Z-pack] 0 mg PO DIRECTED #1 pack predniSONE 50 mg PO DAILY #5 tab Is patient prescribed a controlled substance at d/c from ED?: No Referrals: Gee Martinez MD [Primary Care Provider] - 1-2 days Time of Disposition: 11:12
[2018-05-17 11:43] VITALS: PULSE 95
== END 2018-05-17 11:43 | disposition home or self-care (01) ==
LOC: EC 10:27
DX: J44.1 Chronic obstructive pulmonary disease with (acute) exacerbation (principal); F17.200 Nicotine dependence, unspecified, uncomplicated; Z88.0 Allergy status to penicillin; Z88.5 Allergy status to narcotic agent; Z80.1 Family history of malignant neoplasm of trachea, bronchus and lung; Z83.6 Family history of other diseases of the respiratory system
CPT/HCPCS: 71046; 94640; 99283

== ENCOUNTER → 2018-05-22 | Outpatient (CLI) | payer OTHER ==
--- NOTE | 2018-05-22 12:14 | MM ---
Reason for exam: follow-up at short interval from prior study. Last mammogram was performed 6 months ago. History: Patient is postmenopausal. Family history of breast cancer in maternal aunt at age 31 and breast cancer in maternal grandmother at age 70. Physical Findings: Nurse Summary: 1cm nodule in the right breast at 11 o'clock (nurse marj). MG 3D Diag Mammo W/Cad SAPPHIRE Bilateral CC and MLO view(s) were taken. Prior study comparison: November 20, 2017, bilateral MG 3d work up w/cad SAPPHIRE. November 14, 2017, bilateral MG 3d screening mammo w/cad. The breast tissue is heterogeneously dense. This may lower the sensitivity of mammography. There are benign appearing round calcifications bilaterally. There is no discrete abnormality. These results were verbally communicated with the patient and result sheet given to the patient on 05/22/18. ASSESSMENT: Incomplete: need additional imaging evaluation, BI-RAD 0 RECOMMENDATION: Ultrasound of the right breast. (palpable)
--- NOTE | 2018-05-22 12:15 | USB ---
Reason for exam: additional evaluation requested from abnormal screening. History: Patient is postmenopausal. Family history of breast cancer in maternal aunt at age 31 and breast cancer in maternal grandmother at age 70. US Breast Limited RT Right limited breast ultrasound including focal area of concern, retroareolar and axilla demonstrates no cystic or solid lesion seen. These results were verbally communicated with the patient and result sheet given to the patient on 05/22/18. ASSESSMENT: Negative, BI-RAD 1 RECOMMENDATION: Return to routine screening mammogram schedule for both breasts.
== END ==
LOC: RADMAMWWP 09:32
PROVIDERS: ATTEND Internal Medicine
DX: R92.8 Other abnormal and inconclusive findings on diagnostic imaging of breast (principal)
CPT/HCPCS: 77066; 76642; G0279; 77062

== ENCOUNTER → 2018-11-14 | Outpatient (CLI) | payer OTHER ==
--- NOTE | 2018-11-17 10:00 | MM ---
Reason for exam: screening (asymptomatic). Last mammogram was performed 6 months ago. History: Patient is postmenopausal. Family history of breast cancer in maternal aunt at age 31 and breast cancer in maternal grandmother at age 70. Physical Findings: A clinical breast exam by your physician is recommended on an annual basis and results should be correlated with mammographic findings. MG 3D Screening Mammo W/Cad Bilateral CC and MLO view(s) were taken. Prior study comparison: May 22, 2018, bilateral MG 3d diag mammo w/cad SAPPHIRE. November 20, 2017, bilateral MG 3d work up w/cad SAPPHIRE. The breast tissue is heterogeneously dense. This may lower the sensitivity of mammography. Stable benign calcifications. There is no discrete abnormality. No significant changes when compared with prior studies. ASSESSMENT: Benign, BI-RAD 2 RECOMMENDATION: Routine screening mammogram of both breasts in 1 year.
== END | disposition home or self-care (01) ==
LOC: RADMAMWWP 11:15
PROVIDERS: ATTEND Internal Medicine
DX: Z12.31 Encounter for screening mammogram for malignant neoplasm of breast (principal)
CPT/HCPCS: 77063; 77067

== ENCOUNTER → 2018-11-19 | Outpatient (CLI) | payer OTHER ==
[2018-11-19 10:44] LABS: HGB 15.1 gm/dL (11.4-16.0); MCH 29.4 pg (25.0-35.0); MCHC 32.7 g/dL (31.0-37.0); MCV 89.8 fL (80.0-100.0); Mean Platelet Volume 6.2; Platelet Count 286 k/uL (150-450); RBC 5.13 m/uL (3.80-5.40); RDW 12.9 % (11.5-15.5); WBC 8.4 k/uL (3.8-10.6)
[2018-11-19 17:03] LABS: Albumin 4.3 g/dL (3.80-4.90); Albumin/Globulin Ratio 1.87 (1.60-3.17); Anion Gap 6.1 mmol/L (4.00-12.00); Calcium 9.5 mg/dL (8.7-10.3); Carbon Dioxide 27.9 mmol/L (21.6-31.8); Globulin 2.3 g/dL (1.6-3.3); LDL Cholesterol,Calculated 102.8 mg/dL (0.0-131.0); Potassium 4.1 mmol/L (3.5-5.5); Total Bilirubin 0.5 mg/dL (0.3-1.2); Total Protein 6.6 g/dL (6.2-8.2); VLDL Calculation 21.2 mg/dL (5.00-40.00)
== END ==
LOC: LABWHC1 09:22
PROVIDERS: ATTEND Internal Medicine
DX: Z00.00 Encounter for general adult medical examination without abnormal findings (principal); I11.9 Hypertensive heart disease without heart failure; E78.2 Mixed hyperlipidemia; K21.0 Gastro-esophageal reflux disease with esophagitis
CPT/HCPCS: 36415; 80053; 80061; 84439; 84443; 85027

== ENCOUNTER → 2018-12-16 | Outpatient (CLI) | payer OTHER ==
[2018-12-16 14:58] VITALS: BP 133/83; PULSE 81; RESP 16; TEMP 97.6; BMI 22.1
--- NOTE | 2018-12-16 15:37 | P.HPOB ---
History of Present Illness H&P Date: 12/16/18 Chief Complaint: The patient is here for routine gynecologic exam. This is a 53-year-old with an LMP of 2010. The patient is here to establish with this office. She states it has been about 25 years since her last pelvic exam. She is without gynecologic complaints and denies any postmenopausal bleeding. Review of Systems She states she gained about 10 pounds 1 1/2 years ago. Her weight has been stable since then. She denies respiratory or cardiac problems. G.I.: occasional nausea. She states she will be undergoing an upper endoscopy because of this. Past Medical History Past Medical History: COPD, Hypertension, Osteoarthritis (OA) Additional Past Medical History / Comment(s): chronic low back pain, spinal stenosis, DDD, spinal bifida, chronic constipation, migraines. 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 History of Any Multi-Drug Resistant Organisms: None Reported Past Surgical History: Cholecystectomy, Tubal Ligation Additional Past Surgical History / Comment(s): Lipoma removed from below L breast, rhinoplasty. Past Anesthesia/Blood Transfusion Reactions: No Reported Reaction Past Psychological History: No Psychological Hx Reported Additional Psychological History / Comment(s): Pt resides with her daughter and her 4 grandchildren. 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 Past Drug Use History: Marijuana Additional History: She has been since 1992 and does not work outside the home. - Past Family History Mother Family Medical History: Respiratory Disorder Additional Family Medical History / Comment(s): Mother is from pulmonary fibrosis. Maternal grandmother and maternal aunt had breast cancer. Father Family Medical History: Cancer Additional Family Medical History / Comment(s): Father at age 50 yrs from lung cancer. He was a smoker. Medications and Allergies Home Medications Medication Instructions Recorded Confirmed Type Umeclidinium [place] [Incruse 62.5 mcg INHALATION DAILY 12/16/18 12/16/18 History Ellipta] Allergies Allergy/AdvReac Type Severity Reaction Status Date / Time codeine Allergy Unknown Verified 12/16/18 14:51 Penicillins Allergy Unknown Verified 12/16/18 14:51 Exam Vital Signs Temp Pulse Resp BP Pulse Ox 12/16/18 14:54 97.6 F 81 16 133/83 98 Intake and Output 12/16/18 12/16/18 12/16/18 06:59 14:59 22:59 Other: Weight 60.328 kg Height 5'5", weight 133 pounds, BMI 22.1. This is a well-developed well-nourished white female who is alert and oriented times 3 in no acute distress. HEENT: Within normal limits. NECK: Supple without mass or thyromegaly. CHEST AND LUNGS: Clear to auscultation. Mildly prolonged exploration phase consistent with COPD. HEART: Regular rate and rhythm. BREASTS: Are without mass or discharge. AXILLARY EXAM: Negative for adenopathy. BACK: Negative for CVA tenderness. ABDOMEN: Soft, nontender, without palpable masses. PELVIC EXAM: Normal external genitalia with mild atrophy. Cervix and vagina appear normal with mild atrophy. There is no unusual discharge. There is no evidence of prolapse. The uterus is midposition, nongravid size and nontender. There are no palpable adnexal masses or tenderness. RECTAL EXAM: rectovaginal exam is negative for mass or tenderness and is negative for occult blood. EXTREMITIES: Nontender. IMPRESSION: 1. 53-year-old menopausal female with normal gynecologic exam. PLAN: 1. Pap smear was performed. I have stressed the importance of yearly well woman exams and regular cervical screening since she has not done this for 25 years. 2. Self breast awareness was discussed with the patient. 3. Screening mammogram will be due in one year. She recently had one done on 11/14/2018 which was benign. 4. Osteoporosis prevention was discussed. I have stressed the importance of adequate calcium, vitamin D and regular exercise. Recommended amounts of calcium and vitamin D were also discussed. Consider bone density testing at age 57. 5. I strongly recommended that she tried to quit smoking. She states she has cut back in recent years. 6. I recommended screening colonoscopy since she has never had this done. She states she is scheduled to have this done next week by Dr. Macdonald. 7. I have recommended that she check her blood pressures on her own on a regular basis. I recommended that she follow-up with Dr. Martinez regarding her blood pressure management. She states she is not been using her medication for her blood pressure. 8.She was advised to return in one year for her annual well woman exam.
== END | disposition home or self-care (01) ==
LOC: WWCWWP 14:23
PROVIDERS: ATTEND Obstetrics & Gynecology
DX: Z53.9 Procedure and treatment not carried out, unspecified reason (principal)

== ENCOUNTER → 2019-02-16 | Outpatient (CLI) | payer OTHER ==
--- NOTE | 2019-02-16 14:56 | CT ---
EXAMINATION TYPE: CT chest wo con DATE OF EXAM: 02/16/2019 COMPARISON: 10/23/2017 and 06/17/2016 HISTORY: 53 year-old female follow-up Pulmonary nodules TECHNIQUE: Contiguous axial scanning of the chest without IV contrast. Coronal and sagittal reconstru ctions performed. CT DLP: 148.7 mGycm Automated exposure control for dose reduction was used. FINDINGS: Heart normal size with trace anterior pericardial fluid. Aorta normal caliber with mild atherosclerotic arch calcifications and conventional arch vessel branc clari anatomy. No thoracic lymphadenopathy by CT size criteria. There is moderate centrilobular emphysema in the upper and midlungs with large bulla at the left apex and stable adjacent pleural parenchymal scarring along the inferior margin of the bulla. No consolidation or pleural effusion. Subtle poorly defined 5 mm nodularity peripheral right upper lobe, axial image 11 and coronal image 4 4. Visualized upper abdomen shows cholecystectomy clips. Stable multiple cortical defects involving the right kidney suggesting sequela of prior vascular or infectious insults. Bones: No osseous destructive process. IMPRESSION: 1. REDEMONSTRATED COPD WITH LEFT APICAL BULLOUS CHANGE AND STABLE ADJACENT PLEURAL PARENCHYMAL SCARRI NG. 2. POORLY DEFINED 5 MM NODULE PERIPHERAL RIGHT UPPER LOBE, AXIAL IMAGE 11, IS NEW. THIS COULD REPRESE NT A SMALL INFECTIOUS/INFLAMMATORY FOCUS. SIX-MONTH FOLLOW-UP RECOMMENDED TO EXCLUDE A PULMONARY NODU LE.
== END | disposition home or self-care (01) ==
LOC: RADCTMAIN 12:18
PROVIDERS: ATTEND Internal Medicine Sleep Medicine
DX: J44.9 Chronic obstructive pulmonary disease, unspecified (principal); J92.9 Pleural plaque without asbestos; R91.1 Solitary pulmonary nodule
CPT/HCPCS: 71250

== ENCOUNTER → 2019-06-06 | Outpatient (CLI) | payer OTHER ==
--- NOTE | 2019-06-07 09:14 | XR ---
EXAMINATION TYPE: XR chest 2V DATE OF EXAM: 06/06/2019 COMPARISON: 05/17/2018 INDICATION: G 44.9 TECHNIQUE: Frontal and lateral views of the chest are obtained. FINDINGS: The heart size is normal. The pulmonary vasculature is normal. The lungs are clear. IMPRESSION: 1. No acute pulmonary process.
== END | disposition home or self-care (01) ==
LOC: RADXRMAIN 10:20
PROVIDERS: ATTEND Internal Medicine Sleep Medicine
DX: J44.9 Chronic obstructive pulmonary disease, unspecified (principal)
CPT/HCPCS: 71046

== ENCOUNTER → 2020-04-14 | Outpatient (CLI) | payer OTHER ==
--- NOTE | 2020-04-14 10:54 | CT ---
EXAMINATION TYPE: CT chest wo con DATE OF EXAM: 04/14/2020 COMPARISON: CT chest 02/16/2019. CT chest 10/13/2017. CTA chest 06/17/2016. HISTORY: Solitary pulmonary nodules CT DLP: 319 mGycm. Automated Exposure Control for Dose Reduction was Utilized. TECHNIQUE: CT scan of the thorax is performed without IV contrast. FINDINGS: LUNGS: Redemonstrated moderate centrilobular emphysema with apical predominant. There is a large unch anged left apical bulla with inferior pleural scarring. Groundglass 6 mm nodule of the right upper lo be unchanged versus 2019 comparison (4:11). 3 mm groundglass nodule of the right lower lobe unchanged versus 2018 comparison (4:44). No pleural effusion. The tracheobronchial tree is patent. MEDIASTINUM: Lack of IV contrast is noted to limit evaluation for mediastinal and especially hilar ad enopathy. There are no definitive greater than 1 cm hilar or mediastinal lymph nodes. No thoracic aor tic aneurysm. No cardiomegaly or pericardial effusion is seen. OTHER: No axillary adenopathy. No adrenal nodule. IMPRESSION: 1. Persistent 6 mm ground glass nodule of the right upper lobe. Per Fleischner 2017 criteria follow-u p CT at 3 years is recommended for stability. 2. Emphysema with left apical bulla unchanged.
== END | disposition home or self-care (01) ==
LOC: RADCTMAIN 06:51
PROVIDERS: ATTEND Internal Medicine Sleep Medicine
DX: J43.9 Emphysema, unspecified (principal); R91.1 Solitary pulmonary nodule
CPT/HCPCS: 71250

== ENCOUNTER → 2020-05-18 | Outpatient (CLI) | payer OTHER ==
--- NOTE | 2020-05-18 13:37 | CT ---
EXAMINATION TYPE: CT angio neck DATE OF EXAM: 05/18/2020 HISTORY: Headache and dizziness COMPARISON: CT DLP: 208.4 mGycm. Automated Exposure Control for Dose Reduction was Utilized. TECHNIQUE: CTA scan of the neck is performed with IV Contrast, patient injected with 65 mL of Isovue 370, axial images are obtained, coronal and sagittal reformatted images are reviewed. Three-D recons tructed images are created on an independent workstation and reviewed. FINDINGS: Lung apices demonstrate diffuse emphysematous changes with apical thickening. Pleural-based calcification also noted. Aortic arch demonstrates portions of the ascending aorta with a maximal dimension of 3.4 cm and mild atherosclerotic changes. No diagnostic evidence of aneurysm. Origins of the great vessels demonstrate mild to moderate atherosclerotic plaque involving the left s ubclavian artery and brachiocephalic artery. Mild disease involving the origin of the left common car otid artery. Visualized portions of the subclavian arteries are patent bilaterally with no significant stenosis. T here is atherosclerotic change to a mild degree at the bifurcation of the brachiocephalic artery with no significant stenosis. Right carotid bifurcation: There is eccentric predominantly soft plaque involving the origin and proximal right ICA extending a length of 1 cm and representing approximately 50% stenosis. Left carotid bifurcation: There is mild atherosclerotic plaque at the carotid bulb and bifurcation wi th less than 50% stenosis. Mild disease involving the proximal left external carotid artery with no s ignificant stenosis.. Distal margins of the visualized internal carotid arteries are patent. Portions of the [place] demonstrate no sizable aneurysm. IMPRESSION: 1. No significant hemodynamic stenosis involving the carotid bifurcation bilaterally. Eccentric soft plaque involving the proximal right ICA results in approximately 50% stenosis. Less than 50% stenosis involving the proximal left ICA and carotid bifurcation. 2. Diffuse emphysematous changes correlate for COPD
== END | disposition home or self-care (01) ==
LOC: RADCTMAIN 11:48
PROVIDERS: ATTEND Internal Medicine Interventional Cardiology
DX: I65.23 Occlusion and stenosis of bilateral carotid arteries (principal); E78.5 Hyperlipidemia, unspecified; I10 Essential (primary) hypertension; Z88.0 Allergy status to penicillin; Z88.5 Allergy status to narcotic agent
CPT/HCPCS: 70498; Q9967

== ENCOUNTER → 2020-06-28 | Outpatient (CLI) | payer OTHER ==
--- NOTE | 2020-06-28 14:25 | XR ---
EXAMINATION TYPE: XR chest 2V DATE OF EXAM: 06/28/2020 COMPARISON: Chest x-ray June 06, 2019. CT chest April 14, 2020 HISTORY: Bronchitis. TECHNIQUE: Frontal and lateral views of the chest are obtained. FINDINGS: Chronic emphysematous and pulmonary fibrotic changes greatest in the left upper lung redemo nstrated is seen better on CT versus x-ray. There is no suspicious new focal air space opacity, pleu ral effusion, or pneumothorax seen. The cardiac silhouette size remains within normal limits. The osseous structures are intact. Surgical clips in the midabdomen are partially imaged. IMPRESSION: Chronic changes without acute pulmonary process.
== END | disposition home or self-care (01) ==
LOC: RADXRMAIN 13:59
PROVIDERS: ATTEND Internal Medicine Sleep Medicine
DX: J21.9 Acute bronchiolitis, unspecified (principal); R91.1 Solitary pulmonary nodule
CPT/HCPCS: 71046

== ENCOUNTER 2020-07-23 07:48 | Emergency (ER) | payer OTHER ==
[2020-07-23 07:55] VITALS: BP 137/73; PULSE 86; RESP 18; TEMP 98.3
--- NOTE | 2020-07-23 08:10 | ED ---
General Adult HPI - General Chief complaint: Skin/Abscess/Foreign Body Stated complaint: Rash on neck Time Seen by Provider: 07/23/20 07:56 Source: patient, RN notes reviewed, old records reviewed Mode of arrival: ambulatory Limitations: no limitations - History of Present Illness Initial comments: Patient's 55-year-old female who presents emergency department today with 1 week of pruritic rash over the back of the neck. Patient reports that she did her hair with a hair dye last week which she had previously used it before without any reaction. She reports that her scalp is somewhat itchy as well. Patient states that she's not apply any creams to the area. She denies painful rash. She reports it starts in the back of her neck and spreads down both sides of her neck towards the front. - Related Data Home Medications Medication Instructions Recorded Confirmed Umeclidinium [place] [Incruse 62.5 mcg INHALATION DAILY 12/16/18 12/16/18 Ellipta] Previous Rx's Medication Instructions Recorded Hydrocortisone Oint 1 applic TOPICAL BID #60 gm 07/23/20 [Hydrocortisone 1% Oint] predniSONE [Deltasone] 20 mg PO DIRECTED #12 tab 07/23/20 Allergies Allergy/AdvReac Type Severity Reaction Status Date / Time codeine Allergy Unknown Verified 07/23/20 07:55 Penicillins Allergy Unknown Verified 07/23/20 07:55 Review of Systems ROS Statement: Those systems with pertinent positive or pertinent negative responses have been documented in the HPI. ROS Other: All systems not noted in ROS Statement are negative. Past Medical History Past Medical History: COPD, Hypertension, Osteoarthritis (OA) Additional Past Medical History / Comment(s): chronic low back pain, spinal stenosis, DDD, spinal bifida, chronic constipation, migraines. 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 History of Any Multi-Drug Resistant Organisms: None Reported Past Surgical History: Cholecystectomy, Tubal Ligation Additional Past Surgical History / Comment(s): Lipoma removed from below L breast, rhinoplasty. Past Anesthesia/Blood Transfusion Reactions: No Reported Reaction Past Psychological History: No Psychological Hx Reported Smoking Status: Current every day smoker Past Alcohol Use History: None Reported Past Drug Use History: Marijuana - Past Family History Mother Family Medical History: Respiratory Disorder Additional Family Medical History / Comment(s): Mother is from pulmonary fibrosis. Maternal grandmother and maternal aunt had breast cancer. Father Family Medical History: Cancer Additional Family Medical History / Comment(s): Father at age 50 yrs from lung cancer. He was a smoker. General Exam - General Exam Comments Initial Comments: Physical alert and oriented 55-year-old female. No distress. Limitations: no limitations General appearance: alert, in no apparent distress Head exam: Present: atraumatic, normocephalic, normal inspection Eye exam: Present: normal appearance, PERRL, EOMI. Absent: scleral icterus, conjunctival injection, periorbital swelling ENT exam: Present: normal exam, mucous membranes moist Neck exam: Present: normal inspection, other (Patient has evidence of periodic erythematous papular rash over the posterior neck. There is evidence of erythema and excoriation.). Absent: tenderness, meningismus, lymphadenopathy Respiratory exam: Present: normal lung sounds bilaterally. Absent: respiratory distress, wheezes, rales, rhonchi, stridor Cardiovascular Exam: Present: regular rate, normal rhythm, normal heart sounds. Absent: systolic murmur, diastolic murmur, rubs, gallop, clicks GI/Abdominal exam: Present: soft, normal bowel sounds. Absent: distended, tenderness, guarding, rebound, rigid Extremities exam: Present: normal inspection, full ROM, normal capillary refill. Absent: tenderness, pedal edema, joint swelling, calf tenderness Back exam: Present: normal inspection Neurological exam: Present: alert, oriented X3, CN II-XII intact Psychiatric exam: Present: normal affect, normal mood Course Vital Signs 07/23/20 07:49 Temperature 98.3 F Pulse Rate 86 Respiratory 18 Rate Blood Pressure 137/73 O2 Sat by Pulse 100 Oximetry Medical Decision Making - Medical Decision Making 55-year-old female presents emergency department today for pruritic rash to the back of the neck. Patient rashes to be related to a contact dermatitis from her hair dye. This time patient's will be started on a steroid cream as well as oral steroid. Discussed that the rash is not painful and it goes across the midline of her neck and does not appear to be shingles but rather a dermatitis. Discussed using oral steroids as well. Discussed return parameters and following up with primary care doctor. Advised Patient to avoid using her hair dye again. Disposition Clinical Impression: Contact dermatitis Disposition: HOME SELF-CARE Condition: Good Instructions (If sedation given, give patient instructions): Contact Dermatitis (ED) Additional Instructions: Patient advised to avoid using that hair dye. Keep area clean and dry. Apply the steroid cream as directed and take the steroids as prescribed. Return if there is any worsening signs or symptoms including spreading of rash fevers or chills or concerning other complaints. Follow-up with primary care doctor. Prescriptions: predniSONE [Deltasone] 20 mg PO DIRECTED #12 tab Hydrocortisone Oint [Hydrocortisone 1% Oint] 1 applic TOPICAL BID #60 gm Is patient prescribed a controlled substance at d/c from ED?: No Referrals: Juan Trent MD [Primary Care Provider] - 1-2 days Time of Disposition: 08:08
== END 2020-07-23 08:17 | disposition home or self-care (01) ==
LOC: EC 07:48
DX: L25.2 Unspecified contact dermatitis due to dyes (principal); J44.9 Chronic obstructive pulmonary disease, unspecified; F17.200 Nicotine dependence, unspecified, uncomplicated; Z79.899 Other long term (current) drug therapy; Z88.0 Allergy status to penicillin; Z88.5 Allergy status to narcotic agent
CPT/HCPCS: 99283

== ENCOUNTER → 2021-04-13 | Outpatient (CLI) | payer OTHER ==
--- NOTE | 2021-04-13 12:20 | MR ---
EXAMINATION TYPE: MR lumbar spine wo con DATE OF EXAM: 04/13/2021 COMPARISON: Outside lumbar spine x-ray March 27, 2021 HISTORY: Center and right sided lower back pain for several years. had a fall 1 month ago pain increa sed. TECHNIQUE: Multiplanar, multisequence imaging of the lumbar spine is performed without IV contrast. FINDINGS: Sagittal images of the lumbar spine show vertebral body heights and alignment to appear sat isfactory. Note is made of sacralized L5 segment on review of plain films. There is disc desiccation L2-L3 through the L4-L5 levels. Mild disc space narrowing L5-S1 level. The conus medullaris is normal in position and signal ending at T12-L1 disc space level. Mild multilevel anterior spurring. The bon e marrow signal intensity is within normal limits. Axial images begin at labeled T12-L1 level which appears within normal limits. Axial images at L1-L2 level appear within normal limits. Axial images at L2-L3 level show broad-based posterior disc protrusion effacing anterior thecal sac, patent bilateral neural foramina. Axial images at L3-L4 level show focal central disc protrusion and annular tear effacing anterior the martha sac, patent bilateral neural foramina axial image 13. Axial images at L4-L5 level show broad base central disc protrusion and annular tear with effacement of the anterior thecal sac, patent bilateral neural foramina. Mild facet arthropathy bilaterally. Axial images at L5-S1 level show moderate 2 advanced facet degenerative changes bilaterally. Patent b ilateral neural foramina. Spinal canal preserved. Paraspinal muscle bulk is maintained. IMPRESSION: Multilevel degenerative changes mid to lower lumbar spine as detailed above. No exiting n erve effacement identified.
== END | disposition home or self-care (01) ==
LOC: RADMRIMAIN 11:14
PROVIDERS: ATTEND Orthopaedic Surgery
DX: M51.26 Other intervertebral disc displacement, lumbar region (principal); M47.816 Spondylosis without myelopathy or radiculopathy, lumbar region; M99.73 Connective tissue and disc stenosis of intervertebral foramina of lumbar region
CPT/HCPCS: 72148

== ENCOUNTER → 2021-06-19 | Outpatient (CLI) | payer OTHER ==
--- NOTE | 2021-06-19 17:14 | CT ---
EXAMINATION TYPE: CT chest wo con DATE OF EXAM: 06/19/2021 COMPARISON: 04/14/2020 HISTORY: LUNG NODULES F/U CT DLP: 115.6 mGycm, Automated exposure control for dose reduction was used. CONTRAST: Performed injected with 0 mL of Isovue 300. TECHNIQUE: Axial images were obtained at 5 mm thick sections. Reconstructed images are reviewed on doctors hospital computer in the coronal plane. FINDINGS: Portion of the thyroid visualized is normal. Large apical bulla are present on the left. Emphysematous changes are at the upper lung nieves. Small amount of infiltrate may be in the lateral right upper lung field currently measuring 0.9 cm. T his area previously measured 0.6 cm in diameter. In the area of increased density within the left apex measures 1.0 cm which is stable from comparison . No enlarged mediastinal or hilar adenopathy is evident. The ascending aorta diameter at the level o f the main pulmonary artery is 3.2 cm. The main pulmonary artery diameter at the bifurcation is 2.[address] sections are obtained through the upper abdomen. Abdomen is essentially unremarkable. IMPRESSIONS: 1. Large apical bullae on the left. Emphysematous changes are present. 2. Small areas of pneumonitis appear to be changing. Continued follow-up will be required. Follow-up exam in 6 months is recommended.
== END | disposition home or self-care (01) ==
LOC: RADCTMAIN 16:07
PROVIDERS: ATTEND Internal Medicine Geriatric Medicine
DX: J18.9 Pneumonia, unspecified organism (principal)
CPT/HCPCS: 71250

== ENCOUNTER → 2021-08-29 | Outpatient (CLI) | payer OTHER ==
--- NOTE | 2021-08-30 13:54 | MM ---
Reason for exam: screening (asymptomatic). Last mammogram was performed 2 years and 9 months ago. History: Patient is postmenopausal. Family history of breast cancer in maternal aunt at age 31 and breast cancer in maternal grandmother at age 70. Physical Findings: A clinical breast exam by your physician is recommended on an annual basis and results should be correlated with mammographic findings. MG Screening Mammo w CAD Bilateral CC and MLO view(s) were taken. Prior study comparison: November 14, 2018, bilateral MG 3d screening mammo w/cad. May 22, 2018, bilateral MG 3d diag mammo w/cad [facility]. The breast tissue is heterogeneously dense. This may lower the sensitivity of mammography. Benign appearing bilateral calcifications. No significant changes when compared with prior studies. ASSESSMENT: Benign, BI-RAD 2 RECOMMENDATION: Routine screening mammogram of both breasts in 1 year.
== END | disposition home or self-care (01) ==
LOC: RADMAMWWP 09:41
PROVIDERS: ATTEND Internal Medicine Geriatric Medicine
DX: Z12.31 Encounter for screening mammogram for malignant neoplasm of breast (principal); Z80.3 Family history of malignant neoplasm of breast; Z78.0 Asymptomatic menopausal state
CPT/HCPCS: 77067

== ENCOUNTER → 2022-08-22 | Outpatient (CLI) | payer OTHER ==
--- NOTE | 2022-08-22 15:40 | US ---
EXAMINATION TYPE: US venous doppler duplex LE LT DATE OF EXAM: 08/22/2022 12:17 PM COMPARISON: NONE CLINICAL HISTORY: M79.662 PAIN IN LEFT LOWER LEG. Pain SIDE PERFORMED: Left TECHNIQUE: The lower extremity deep venous system is examined utilizing real time linear array sonog jovanna with graded compression, doppler sonography and color-flow sonography. VESSELS IMAGED: Common Femoral Vein Deep Femoral Vein Greater Saphenous Vein * Femoral Vein Popliteal Vein Small Saphenous Vein * Proximal Calf Veins (* superficial vessels) Left Leg: Negative for DVT IMPRESSION: 1. Left lower extremity ultrasound negative for deep venous thrombosis.
== END | disposition home or self-care (01) ==
LOC: RADUSWWP 12:14
PROVIDERS: ATTEND Internal Medicine Geriatric Medicine
DX: M79.662 Pain in left lower leg (principal)

== ENCOUNTER → 2023-11-04 | Outpatient (CLI) | payer BC ==
[2023-11-04 16:15] LABS: T4, Free (Free Thyroxine) 1.47 ng/dL (0.80-1.80)
[2023-11-04 16:34] LABS: ALT 8 U/L (8-44); AST 20 U/L (13-35); Albumin 4.4 g/dL (3.8-4.9); Albumin/Globulin Ratio 1.42 Ratio (1.60-3.17); Alkaline Phosphatase 95 U/L (41-126); Blood Urea Nitrogen 10.6 mg/dL (9.0-27.0); Calcium 10.2 mg/dL (8.7-10.3); Carbon Dioxide 23.9 mmol/L (21.6-31.8); Chloride 106 mmol/L (96-109); Globulin 3.1 g/dL (1.6-3.3); Glucose 99 mg/dL (70-110); Potassium 4.3 mmol/L (3.5-5.5); Sodium 143 mmol/L (135-145); Total Bilirubin 0.7 mg/dL (0.3-1.2); Total Protein 7.5 g/dL (6.2-8.2)
== END | disposition home or self-care (01) ==
LOC: LABWHC1 08:25
PROVIDERS: ATTEND Family Medicine
DX: R41.82 Altered mental status, unspecified (principal)
CPT/HCPCS: 36415; 80053; 82607; 84439; 84443

== ENCOUNTER 2023-11-07 11:46 | Observation (INO) | payer BC ==
[2023-11-07 12:12] VITALS: TEMP 98.3
[2023-11-07 13:01] LABS: Basophils # (A) 0.1 k/uL (0-0.2); Basophils % (A) 0 %; Eosinophils % (A) 0 %; HGB 15.7 gm/dL (11.4-16.0); Lymphocytes # (A) 3.8 k/uL (1.0-4.8); Lymphocytes % (A) 34 %; MCH 30.5 pg (25.0-35.0); MCHC 33.4 g/dL (31.0-37.0); MCV 91.2 fL (80.0-100.0); Mean Platelet Volume 7.8; Monocytes # (A) 0.6 k/uL (0-1.0); Monocytes % (A) 5 %; Neutrophils # (A) 6.7 k/uL (1.3-7.7); Neutrophils % (A) 59 %; Platelet Count 326 k/uL (150-450); RBC 5.15 m/uL (3.80-5.40); RDW 12.3 % (11.5-15.5); WBC 11.3 k/uL (3.8-10.6)
[2023-11-07 13:20] LABS: ALT 11 U/L (4-34); African American GFR (CKD) 86 (>60 ml/min/1.73 sqM); Anion Gap 10 mmol/L; Blood Urea Nitrogen 13 mg/dL (7-17); Calcium 9.8 mg/dL (8.4-10.2); Carbon Dioxide 21 mmol/L (22-30); Chloride 110 mmol/L (98-107); Creatine Kinase 69 U/L (30-135); Glucose 112 mg/dL (74-99); Non-African American GFR(CKD) 75 (>60 ml/min/1.73 sqM); Sodium 141 mmol/L (137-145); Total Bilirubin 0.9 mg/dL (0.2-1.3)
[2023-11-07 13:22] LABS: Potassium 4.7 mmol/L (3.5-5.1)
[2023-11-07 13:23] LABS: AST 27 U/L (14-36); Albumin 4.5 g/dL (3.5-5.0); Alkaline Phosphatase 81 U/L (38-126); Total Protein 7.8 g/dL (6.3-8.2)
--- NOTE | 2023-11-07 13:56 | XR ---
EXAMINATION TYPE: XR chest 2V DATE OF EXAM: 11/07/2023 COMPARISON: 06/28/2020 INDICATION: Altered mental status TECHNIQUE: Frontal and lateral views of the chest are obtained. FINDINGS: The heart size is normal. The pulmonary vasculature is normal. The lungs are clear. IMPRESSION: 1. No acute pulmonary process.
--- NOTE | 2023-11-07 14:00 | CT ---
EXAMINATION TYPE: CT brain wo con DATE OF EXAM: 11/07/2023 COMPARISON: None INDICATION: Neuro deficit, Stroke suspected DLP: 1079.5 mGycm, Automated exposure control for dose reduction was used. CONTRAST: None CT of the brain is performed utilizing 3 mm thick sections through the posterior fossa and 3 mm thick sections through the remaining calvarium. Study is performed within 24 hours of arrival to the hosp [facility]. No abnormal hyperdensity is present to suggest an acute intracranial hemorrhage. No mass lesion is evident. No acute infarcts are evident. There is some mild patchy periventricular white matter changes in the centrum semiovale which may be related to chronic white matter ischemic changes. Ventricles and sulci are appropriate for the patient age. Paranasal sinuses and mastoid air cells within the [id number]-bzyu are clear. IMPRESSION: 1. Suggestion of mild periventricular chronic white matter ischemic type changes. Follow-up MRI can be performed as clinically indicated
--- NOTE | 2023-11-07 14:28 | ED ---
Neuro HPI - General Chief Complaint: Neuro Symptoms/Deficit Stated Complaint: Poss Stroke Time Seen by Provider: 11/07/23 12:00 Source: patient Mode of arrival: ambulatory Limitations: no limitations - History of Present Illness Is the patient presenting with stroke symptoms?: Yes Last Known Well Date: 11/05/23 Last Known Well Time: 23:30 Initial Comments: 58-year-old female with past medical history of COPD, hyperlipidemia, anxiety who presents emergency department with reported right upper and lower extremity numbness and weakness. Symptoms started Saturday at 11:30 PM. States she lost complete strength on her right side which is her dominant side. Symptoms have slowly started to improve however patient was so fearful that she did not present to the emergency department today. She had ultrasound of her carotids this morning. Ultrasound was evaluated and demonstrates greater than 70% stenosis of the bilateral carotids. She came home and told her sister about her symptoms and her sister brought her in for evaluation. Patient denies any speech changes. No facial droop. Patient does not take any blood thinners. No history of stroke. States she did fall out of bed on Saturday after weakness started. No other alleviating, precipitating or modifying factors - Related Data Home Medications: Home Medications Medication Instructions Recorded Confirmed ALPRAZolam [Xanax] 0.5 mg PO BID PRN 11/07/23 11/07/23 QUEtiapine [SEROquel] 100 mg PO HS PRN 11/07/23 11/07/23 Allergies/Adverse Reactions: Allergies Allergy/AdvReac Type Severity Reaction Status Date / Time codeine Allergy Swelling Verified 11/07/23 12:28 lurasidone [From Latuda] Allergy Vomiting Verified 11/07/23 12:28 Penicillins Allergy Swelling Verified 11/07/23 12:28 Review of Systems ROS Statement: Those systems with pertinent positive or pertinent negative responses have been documented in the HPI. ROS Other: All systems not noted in ROS Statement are negative. General Exam Limitations: no limitations General appearance: alert, in no apparent distress Head exam: Present: atraumatic, normocephalic, normal inspection Eye exam: Present: normal appearance, PERRL, EOMI. Absent: scleral icterus, conjunctival injection, periorbital swelling ENT exam: Present: normal exam, mucous membranes moist Neck exam: Present: normal inspection. Absent: tenderness, meningismus, lymphadenopathy Respiratory exam: Present: normal lung sounds bilaterally. Absent: respiratory distress, wheezes, rales, rhonchi, stridor Cardiovascular Exam: Present: regular rate, normal rhythm, normal heart sounds. Absent: systolic murmur, diastolic murmur, rubs, gallop, clicks GI/Abdominal exam: Present: soft, normal bowel sounds. Absent: distended, tenderness, guarding, rebound, rigid Neurological exam: Present: alert, oriented X3, other (4/5 strength rue and rle. decreased sensory rue/rle) Psychiatric exam: Present: anxious Skin exam: Present: warm, dry, intact, normal color. Absent: rash Stroke MDM - Lab Data Result diagrams: 11/07/23 12:47 11/07/23 12:47 Lab Results 11/07/23 11/07/23 11/07/23 Range/Units 12:47 12:47 12:47 WBC 11.3 H (3.8-10.6) k/uL RBC 5.15 (3.80-5.40) m/uL Hgb 15.7 (11.4-16.0) gm/dL Hct 47.0 H (34.0-46.0) % MCV 91.2 (80.0-100.0) fL MCH 30.5 (25.0-35.0) pg MCHC 33.4 (31.0-37.0) g/dL RDW 12.3 (11.5-15.5) % Plt Count 326 (150-450) k/uL MPV 7.8 Neutrophils % 59 % Lymphocytes % 34 % Monocytes % 5 % Eosinophils % 0 % Basophils % 0 % Neutrophils # 6.7 (1.3-7.7) k/uL Lymphocytes # 3.8 (1.0-4.8) k/uL Monocytes # 0.6 (0-1.0) k/uL Eosinophils # 0.0 (0-0.7) k/uL Basophils # 0.1 (0-0.2) k/uL Sodium 141 (137-145) mmol/L Potassium 4.7 (3.5-5.1) mmol/L Chloride 110 H (98-107) mmol/L Carbon Dioxide 21 L (22-30) mmol/L Anion Gap 10 mmol/L BUN 13 (7-17) mg/dL Creatinine 0.87 (0.52-1.04) mg/dL Est GFR (CKD-EPI)AfAm 86 (>60 ml/min/1.73 sqM) Est GFR (CKD-EPI)NonAf 75 (>60 ml/min/1.73 sqM) Glucose 112 H (74-99) mg/dL Calcium 9.8 (8.4-10.2) mg/dL Total Bilirubin 0.9 (0.2-1.3) mg/dL AST 27 (14-36) U/L ALT 11 (4-34) U/L Alkaline Phosphatase 81 (38-126) U/L Creatine Kinase 69 (30-135) U/L Troponin I <0.012 (0.000-0.034) ng/mL Total Protein 7.8 (6.3-8.2) g/dL Albumin 4.5 (3.5-5.0) g/dL - Medical Decision Making Was pt. sent in by a medical professional or institution (, PA, MILL ATTENDANT, urgent care, hospital, or long-term...) When possible be specific @ -No Did you speak to anyone other than the patient for history (EMS, parent, family, police, friend...)? What history was obtained from this source @ -Spoke with patient's sister Did you review nursing and triage notes (agree or disagree)? Why? @ -I reviewed and agree with nursing and triage notes Were old charts reviewed (outside hosp., previous admission, EMS record, old EKG, old radiological studies, urgent care reports/EKG's, long-term records)? Report findings @ -No old charts were reviewed Differential Diagnosis (chest pain, altered mental status, abdominal pain women, abdominal pain men, vaginal bleeding, weakness, fever, dyspnea, syncope, headache, dizziness, GI bleed, back pain, seizure, CVA, palpatations, mental health, musculoskeletal)? @ -Differential CVA Ischemic stroke, hemorrhagic stroke, brain tumor, atypical migraine, Wernicke's encephalopathy, seizure, multiple sclerosis, meningitis, encephalitis, hypoglycemia, Guillain-Fernandez, electrolytes disturbance, myasthenia gravis.... This is not meant to be an all-inclusive list EKG interpreted by me (3pts min.). @ -Yes and demonstrates sinus rhythm with a rate of 91. MD interval 157. QRS 80. QTc of 411. No acute ST segment elevations or depressions X-rays interpreted by me (1pt min.). @ -None done CT interpreted by me (1pt min.). @ -Yes and demonstrates no acute findings U/S interpreted by me (1pt. min.). @ -None done What testing was considered but not performed or refused? (CT, X-rays, U/S, labs)? Why? @ -CTA however patient was refusing IV What meds were considered but not given or refused? Why? @ -tnkASE however patient is outside the window Did you discuss the management of the patient with other professionals (pr ofessionals i.e. , PA, MILL ATTENDANT, lab, RT, psych nurse, drug abuse social worker, research test engine operator, teacher, police or patrol park officer, heel caser)? Give summary @ -Spoke with Dr. Damon for admission Was smoking cessation discussed for >3mins.? @ -No Was critical care preformed (if so, how long)? @ -No Were there social determinants of health that impacted care today? How? (Homelessness, low income, unemployed, alcoholism, drug addiction, transportation, low edu. Level, literacy, decrease access to med. care, [facility], rehab)? @ -No Was there de-escalation of care discussed even if they declined (Discuss DNR or withdrawal of care, Hospice)? DNR status @ -No What co-morbidities impacted this encounter? (DM, HTN, Smoking, COPD, CAD, Cancer, CVA, ARF, Chemo, Hep., AIDS, mental health diagnosis, sleep apnea, morbid obesity)? @ -Anxiety Was patient admitted / discharged? Hospital course, mention meds given and route, prescriptions, significant lab abnormalities, going to OR and other pertinent info. @ -Admitted. Upon arrival patient was placed into trauma 1. Thorough history and physical exam was performed. NIH is 4 for weakness and sensory change of the right upper and lower extremity. We did attempt IV access however was unsuccessful after the first try. Patient refused any additional attempts. She is aware of the risks by not completing a full workup with an IV for which she understood. Her sister was at bedside and was agreeable to this. Laboratory studies were conducted. Patient does go for a CT brain which does not demonstrate acute findings. There is concern for CVA at this time. Recommended admission for which the patient was agreeable. She was given full dose aspirin and admitted with a neurology consult. Spoke with Dr. damon for admission Undiagnosed new problem with uncertain prognosis? @ -Yes Drug Therapy requiring intensive monitoring for toxicity (Heparin, Nitro, Insulin, Cardizem)? @ -No Were any procedures done? @ -No Diagnosis/symptom? @ -Acute right upper and lower extremity weakness Acute, or Chronic, or Acute on Chronic? @ -Acute Uncomplicated (without systemic symptoms) or Complicated (systemic symptoms)? @ -Complicated Side effects of treatment? @ -No Exacerbation, Progression, or Severe Exacerbation? @ -No Poses a threat to life or bodily function? How? (Chest pain, [place], [place], pneumonia, PE, COPD, DKA, ARF, appy, cholecystitis, CVA, Diverticulitis, Homicidal, Suicidal, threat to staff... and all critical care pts) @ -Yes as there are concerns for stroke in this patient Past Medical History Past Medical History: COPD, Hyperlipidemia, Osteoarthritis (OA), Pneumonia Additional Past Medical History / Comment(s): chronic low back pain, spinal stenosis, DDD, spinal bifida, chronic constipation, emphysema, pneumonia 05/2021, hiatal hernia, rash on torso and ears, fell 09/03/21 and fx left wrist-has splint on, blockages in carotid arteries History of Any Multi-Drug Resistant Organisms: None Reported Past Surgical History: Breast Surgery, Cholecystectomy, Tubal Ligation Additional Past Surgical History / Comment(s): Lipoma removed from below L breast, rhinoplasty. Past Anesthesia/Blood Transfusion Reactions: No Reported Reaction Additional Past Anesthesia/Blood Transfusion Reaction / Comment(s): "severe needle phobia"- small veins, diff IV starts Past Psychological History: Anxiety, Bipolar, Depression, Panic Disorder Smoking Status: Current every day smoker - Past Family History Mother Family Medical History: Respiratory Disorder Additional Family Medical History / Comment(s): Mother is from pulmonary fibrosis. grandfather,nephew had hemophilia Father Family Medical History: Cancer Additional Family Medical History / Comment(s): lung cancer. Course Vital Signs 11/07/23 11/07/23 11/07/23 11:52 12:15 14:30 Temperature 98.3 F Pulse Rate 99 85 82 Respiratory 16 16 20 Rate Blood Pressure 197/88 182/106 135/78 O2 Sat by Pulse 99 100 98 Oximetry 11/07/23 11/07/23 11/07/23 15:00 15:30 16:00 Temperature Pulse Rate 65 67 67 Respiratory 18 14 12 Rate Blood Pressure 164/85 157/101 149/86 O2 Sat by Pulse 98 99 99 Oximetry 11/07/23 11/07/23 16:30 19:42 Temperature Pulse Rate 64 82 Respiratory 20 18 Rate Blood Pressure 138/86 137/76 O2 Sat by Pulse 99 99 Oximetry Disposition Clinical Impression: Right sided weakness, Carotid artery disease, CVA (cerebral vascular accident) Disposition: ADMITTED IP TO THIS [facility] Condition: Serious Is patient prescribed a controlled substance at d/c from ED?: No Time of Disposition: 14:30 Decision to Admit Reason: Admit from EC Decision Date: 11/07/23 Decision Time: 14:30
[2023-11-07] MEDS: ASPIRIN 325 MG TAB PO STA (15:35)
[2023-11-07] MEDS ORDERED: IPRATROPIUM-ALBUTEROL 3 ML NEB INHALATION PRN (18:57)
[2023-11-07 19:57] VITALS: BP 137/76; PULSE 82; RESP 18
[2023-11-07] MEDS: HEPARIN SODIUM,PORCINE 5,000 UNIT/ML 1 ML VIAL SQ SCH (20:31)
--- NOTE | 2023-11-07 21:54 | P.HPIM ---
History of Present Illness H&P Date: 11/07/23 Chief Complaint: Right-sided weakness Patient is a 58-year-old female with a past medical history of COPD/emphysema, hyperlipidemia, osteoarthritis, chronic low back pain, spinal stenosis, spinal bifid and history of carotid stenosis 50% about 4 years ago, anxiety/depression, bipolar and panic disorder and currently everyday smoker was brought to the hospital due to complaints of right upper and lower extremity weakness. Patient states that right upper extremities more weak than lower. Patient also states that numbness of the right upper extremity. Patient states that her symptoms started on Saturday around 11:30 PM. She has been losing balance and unable to walk by herself at home. Weakness slowly improving but still having difficulty ambulation. Patient did not tell her family until today. Patient was brought to the hospital for further evaluation by her sister. Patient otherwise denies any complaints of blurred vision. Denies any double vision. No facial droop. Denies any slurred speech or difficulty finding words. Denies any recent illnesses. No chest pain or shortness of breath. No palpitations. No leg swelling. Chest x-ray showed no acute pulmonary process. CT head showed suggestion of mild periventricular chronic white matter ischemic changes. Follow-up MRI can be performed as clinically indicated. Carotid duplex scan is pending. EKG showed sinus rhythm Laboratory data showed WBC 11.3 hemoglobin 15.7 and platelets 326 Sodium 141 potassium 4.7 chloride 110 bicarb is 21 BUN 13 and creatinine 0.87 blood sugar 112 and liver any Elevated troponin x 1 negative. Review of Systems constitutional: Patient denies any fever or chills . No generalized weakness or weight loss. Abdomen: Patient denied nausea vomiting and diarrhea and abdominal pain. Cardiovascular: Patient denies any chest pain or short of breath no palpitations. Respiratory: patient denied any cough is from production. No shortness of breath Neurologic: Patient denied any tingling headache. Patient does complain of right-sided weakness and numbness. Musculoskeletal: Patient denies any complaints of joint swelling or deformity. Skin: Negative Psychiatric: Negative Endocrine: No heat or cold intolerance. No recent weight gain. Genitourinary: No dysuria or hematuria. All other 14 point ROS negative except the above Past Medical History Past Medical History: COPD, Hyperlipidemia, Osteoarthritis (OA), Pneumonia Additional Past Medical History / Comment(s): chronic low back pain, spinal stenosis, DDD, spinal bifida, chronic constipation, emphysema, pneumonia 05/2021, hiatal hernia, rash on torso and ears, fell 09/03/21 and fx left wrist-has splint on, blockages in carotid arteries History of Any Multi-Drug Resistant Organisms: None Reported Past Surgical History: Breast Surgery, Cholecystectomy, Tubal Ligation Additional Past Surgical History / Comment(s): Lipoma removed from below L breast, rhinoplasty. Past Anesthesia/Blood Transfusion Reactions: No Reported Reaction Additional Past Anesthesia/Blood Transfusion Reaction / Comment(s): "severe needle phobia"- small veins, diff IV starts Past Psychological History: Anxiety, Bipolar, Depression, Panic Disorder Smoking Status: Current every day smoker - Past Family History Mother Family Medical History: Respiratory Disorder Additional Family Medical History / Comment(s): Mother is from pulmonary fibrosis. grandfather,nephew had hemophilia Father Family Medical History: Cancer Additional Family Medical History / Comment(s): lung cancer. Medications and Allergies Home Medications Medication Instructions Recorded Confirmed Type ALPRAZolam [Xanax] 0.5 mg PO BID PRN 11/07/23 11/07/23 History QUEtiapine [SEROquel] 100 mg PO HS PRN 11/07/23 11/07/23 History Allergies Allergy/AdvReac Type Severity Reaction Status Date / Time codeine Allergy Swelling Verified 11/07/23 12:28 lurasidone [From Latuda] Allergy Vomiting Verified 11/07/23 12:28 Penicillins Allergy Swelling Verified 11/07/23 12:28 Physical Exam Vitals: Vital Signs Temp Pulse Resp BP Pulse Ox 11/07/23 16:30 64 20 138/86 99 11/07/23 16:00 67 12 149/86 99 11/07/23 15:30 67 14 157/101 99 11/07/23 15:00 65 18 164/85 98 11/07/23 14:30 82 20 135/78 98 11/07/23 12:15 85 16 182/106 100 11/07/23 11:52 98.3 F 99 16 197/88 99 Intake and Output 11/07/23 11/07/23 11/07/23 06:59 14:59 22:59 Other: Weight 49.895 kg PHYSICAL EXAMINATION: Patient is lying in the bed comfortably, no acute distress, awake alert and oriented.. HEENT: Normocephalic. Neck is supple. Pupils reactive. Nostrils clear. Oral cavity is moist. Neck reveals no JVD, carotid bruits, or thyromegaly. CHEST EXAMINATION: Trachea is central. Symmetrical expansion. Bilateral prolonged expiration. No wheezing or rhonchi. Nonlabored breathing. CARDIAC: Normal S1, S2 with no gallops. No murmurs ABDOMEN: Soft. Bowel sounds normal. No organomegaly. No abdominal bruits. Extremities: reveal no edema. No clubbing or cyanosis Neurologically awake, alert, oriented x3. Right upper extremity motor strength is slightly lower than left.. No facial droop. Skin: No rash or skin lesions. Psychiatric: Coperative. Nonsuicidal Musculoskeletal: No joint swelling or deformity. Normal range of motion. Results CBC & Chem 7: 11/07/23 12:47 11/07/23 12:47 Labs: Abnormal Lab Results - Last 24 Hours (Table) 11/07/23 11/07/23 Range/Units 12:47 12:47 WBC 11.3 H (3.8-10.6) k/uL Hct 47.0 H (34.0-46.0) % Chloride 110 H (98-107) mmol/L Carbon Dioxide 21 L (22-30) mmol/L Glucose 112 H (74-99) mg/dL Thrombosis Risk Factor Assmnt - DVT/VTE Prophylaxis DVT/VTE Prophylaxis: Pharmacologic Prophylaxis ordered Assessment and Plan Assessment: Acute CVA with right-sided weakness. Upper extremity more than lower. Patient's symptoms have been present for about 2 days. History of carotid stenosis Uncontrolled hypertension on admission. Patient is currently not taking any medications. COPD/emphysema not in exacerbation Hyperlipidemia Currently ongoing nicotine addiction Osteoarthritis Anxiety/depression and panic disorder and bipolar disorder. Patient states that she takes Xanax and Seroquel as needed. DVT prophylaxis heparin subcu Plan: Patient will be continued on telemonitoring. Was given aspirin 325 mg x 1 in the ER. Continue with aspirin and lipid panel was ordered. Continue with neurochecks Continue with DVT prophylaxis. Ordered carotid duplex and neurology recommendations. TSH admitted A1c levels ordered. DuoNebs as needed. Follow-up closely. Discussed with the patient and her sister at bedside in detail. Time with Patient: Greater than 30
[2023-11-08] MEDS ORDERED: ASPIRIN 325 MG TAB PO SCH (09:00)
== END 2023-11-07 20:51 | disposition left against medical advice (07) ==
LOC: EC 11:46 → 3SCARD 14:33
PROVIDERS: ADMIT Hospitalist; ATTEND Hospitalist
DX: R53.1 Weakness (principal); I10 Essential (primary) hypertension; I65.29 Occlusion and stenosis of unspecified carotid artery; J44.9 Chronic obstructive pulmonary disease, unspecified; E78.5 Hyperlipidemia, unspecified; F41.9 Anxiety disorder, unspecified; G89.29 Other chronic pain; M54.50 Low back pain, unspecified; K59.09 Other constipation; F31.9 Bipolar disorder, unspecified; F41.0 Panic disorder [episodic paroxysmal anxiety]; M19.90 Unspecified osteoarthritis, unspecified site; F17.200 Nicotine dependence, unspecified, uncomplicated; Z79.899 Other long term (current) drug therapy; Z88.0 Allergy status to penicillin; Z88.5 Allergy status to narcotic agent
CPT/HCPCS: 99285; 36415; 93005; 80053; 82550; 84484; 85025; 71046; 70450; G0378

== ENCOUNTER → 2023-11-07 | Outpatient (CLI) | payer BC ==
--- NOTE | 2023-11-07 13:17 | US ---
EXAMINATION TYPE: US carotid duplex BILAT DATE OF EXAM: 11/07/2023 COMPARISON: CT angio neck 05/18/2020 CLINICAL INDICATION: Female, 58 years old with history of I65.29 OCCLUSION AND STENOSIS OF UNSPEC CAR OTID; Patient states loss of feeling/ movement in right arm and dizziness. TECHNIQUE: Carotid duplex ultrasound examination. Indirect Doppler criteria was utilized. FINDINGS: EXAM MEASUREMENTS: RIGHT: Peak Systolic Velocity (PSV) cm/sec ----- Right CCA: 109.0 ----- Right ICA: 252 ----- Right ECA: 119.0 ICA/CCA ratio: 2.3 RIGHT: End Diastole cm/sec ----- Right CCA: 27.3 ----- Right ICA: 77.9 ----- Right ECA: 19.2 LEFT: Peak Systolic Velocity (PSV) cm/sec ----- Left CCA: 108.0 ----- Left ICA: 466.0 ----- Left ECA: 255.0 ICA/CCA ratio: 4.3 LEFT: End Diastole cm/sec ----- Left CCA: 18.9 ----- Left ICA: 141.0 ----- Left ECA: 17.2 VERTEBRALS (direction of flow): Right Vertebral: Antegrade Left Vertebral: Antegrade Rhythm: Normal BRICK DROPPER NOTES: Wall thickening seen bilaterally. There is plaque seen in bilateral bulbs and left prox ICA. Elevated velocities noted on the right side in the ICA. Elevated velocities seen left pro x ICA near area of plaque and ECA. IMPRESSION: >70% stenosis of the bilateral carotid bifurcations , left greater than right by peak systolic veloci ty. Criteria for Assigning % of Stenosis / Diameter reduction (Estimation based on the indirect measurements of the internal carotid artery velocities (ICA PSV). 1. Normal (no stenosis)=ICA PSV < 125 cm/s: ratio < 2.0: ICA EDV<40 cm/s. 2. Less than 50% stenosis=ICA PSV < 125 cm/s: ratio < 2.0: ICA EDV<40 cm/s. 3. 50 to 69% stenosis=ICA PSV of 125 to 230 cm/s: ration 2.0 ? 4.0: ICA EDV 40-100 cm/s. 4. Greater than 70% stenosis to near occlusion= ICA PSV > 230 cm/s: ratio > 4.0: ICA EDV > 100 cm/s. 5. Near occlusion= ICA PSV velocities may be low or undetectable: variable ratio and ICA EDV. 6. Total occlusion=unable to detect flow.
== END | disposition home or self-care (01) ==
LOC: RADUSWWP 09:19
PROVIDERS: ATTEND Family Medicine
DX: I65.23 Occlusion and stenosis of bilateral carotid arteries (principal)
CPT/HCPCS: 93880

== ENCOUNTER 2023-11-14 18:04 | Inpatient (IN) | payer BC ==
--- NOTE | 2023-11-14 20:15 | ED ---
Recheck HPI - General Chief Complaint: Neuro Symptoms/Deficit Stated Complaint: Brain Embolism Time Seen by Provider: 11/14/23 18:30 Source: patient, RN notes reviewed, old records reviewed Mode of arrival: ambulatory Limitations: no limitations - History of Present Illness Initial Comments: This is a 58-year-old female to the ER for evaluation. Patient presenting for outpatient findings of an MRI of his stroke. Patient was recently admitted to the hospital but she left due to being scared where she was diagnosed with a stroke symptoms right-sided weakness ataxia and dizziness. Patient's symptoms are persistent although they do appear to be mildly improved MD Complaint: other (Recent CVA) -: days(s) Symptoms Since Prior Visit: no new symptoms Associated Symptoms: none Treatments Prior to Arrival: other (0) - Related Data Home Medications Medication Instructions Recorded Confirmed QUEtiapine [SEROquel] 100 mg PO HS PRN 11/07/23 11/14/23 Aspirin EC [Ecotrin Low Dose] 81 mg PO DAILY 11/14/23 11/14/23 Previous Rx's Medication Instructions Recorded Atorvastatin [Lipitor] 40 mg PO HS #30 tab 11/21/23 Clopidogrel [Plavix] 75 mg PO DAILY #30 tab 11/21/23 Metoprolol Tartrate [Lopressor] 25 mg PO BID #60 tab 11/21/23 Nicotine 21Mg/24Hr Patch [Habitrol] 1 patch TRANSDERM DAILY #30 patch 11/21/23 polyethylene glycoL 3350 [Miralax] 17 gm PO DAILY PRN packet 11/21/23 Allergies Allergy/AdvReac Type Severity Reaction Status Date / Time codeine Allergy Swelling Verified 11/14/23 19:49 lurasidone [From Latuda] Allergy Vomiting Verified 11/14/23 19:49 Penicillins Allergy Swelling Verified 11/14/23 19:49 Review of Systems ROS Statement: Those systems with pertinent positive or pertinent negative responses have been documented in the HPI. ROS Other: All systems not noted in ROS Statement are negative. Past Medical History Past Medical History: COPD, Hyperlipidemia, Osteoarthritis (OA), Pneumonia Additional Past Medical History / Comment(s): chronic low back pain, spinal stenosis, DDD, spinal bifida, chronic constipation, emphysema, pneumonia 05/2021, hiatal hernia, rash on torso and ears, fell 09/03/21 and fx left wrist-has splint on, blockages in carotid arteries History of Any Multi-Drug Resistant Organisms: None Reported Past Surgical History: Breast Surgery, Cholecystectomy, Tubal Ligation Additional Past Surgical History / Comment(s): Lipoma removed from below L breas t, rhinoplasty. Past Anesthesia/Blood Transfusion Reactions: No Reported Reaction Additional Past Anesthesia/Blood Transfusion Reaction / Comment(s): "severe needle phobia"- small veins, diff IV starts Past Psychological History: Anxiety, Bipolar, Depression, Panic Disorder Smoking Status: Current every day smoker - Past Family History Mother Family Medical History: Respiratory Disorder Additional Family Medical History / Comment(s): Mother is from pulmonary fibrosis. grandfather,nephew had hemophilia Father Family Medical History: Cancer Additional Family Medical History / Comment(s): lung cancer. General Exam Limitations: no limitations General appearance: alert, in no apparent distress Head exam: Present: atraumatic, normocephalic, normal inspection Eye exam: Present: normal appearance, PERRL, EOMI. Absent: scleral icterus, conjunctival injection, periorbital swelling ENT exam: Present: normal exam, mucous membranes moist Neck exam: Present: normal inspection. Absent: tenderness, meningismus, lymphadenopathy Respiratory exam: Present: normal lung sounds bilaterally. Absent: respiratory distress, wheezes, rales, rhonchi, stridor Cardiovascular Exam: Present: regular rate, normal rhythm, normal heart sounds. Absent: systolic murmur, diastolic murmur, rubs, gallop, clicks GI/Abdominal exam: Present: soft, normal bowel sounds. Absent: distended, tenderness, guarding, rebound, rigid Extremities exam: Present: normal inspection, full ROM, normal capillary refill. Absent: tenderness, pedal edema, joint swelling, calf tenderness Back exam: Present: normal inspection Neurological exam: Present: alert, oriented X3, CN II-XII intact Psychiatric exam: Present: normal affect, normal mood Skin exam: Present: warm, dry, intact, normal color. Absent: rash Course Vital Signs 11/14/23 11/15/23 11/15/23 18:30 00:15 03:55 Temperature 98.4 F 98.7 F 98.2 F Pulse Rate 98 Pulse Rate [ 70 66 Pot Liner ] Respiratory 20 12 13 Rate Blood Pressure 162/86 Blood Pressure 113/77 120/67 [Right Arm] O2 Sat by Pulse 98 95 Oximetry 11/15/23 11/15/23 11/15/23 08:00 12:00 14:00 Temperature 98.1 F Pulse Rate Pulse Rate [ 65 60 60 Pot Liner ] Respiratory 16 16 Rate Blood Pressure Blood Pressure 146/85 143/79 [Right Arm] O2 Sat by Pulse 99 100 Oximetry 11/15/23 16:00 Temperature Pulse Rate Pulse Rate [ 73 Pot Liner ] Respiratory Rate Blood Pressure Blood Pressure 141/82 [Right Arm] O2 Sat by Pulse 99 Oximetry - Reevaluation(s) Reevaluation #1: 11/14/23 20:42 Medical records reviewed Reevaluation #2: 11/14/23 20:42 Patient has no change in symptoms here in the ER Reevaluation #3: 11/14/23 20:42 Patient informed of results and questions answered Reevaluation #4: Was pt. sent in by a medical professional or institution ([facility], OPHTHALMIC ASST, urgent care, hospital, or intermediate...) When possible be specific @ -no Did you speak to anyone other than the patient for history (EMS, parent, family, police, friend...)? What history was obtained from this source @ -no Did you review nursing and triage notes (agree or disagree)? Why? @ -agree Are old charts reviewed (outside hosp., previous admission, EMS record, old EKG, old radiological studies, urgent care reports/EKG's, intermediate records)? Report findings @ -yes Differential Diagnosis (chest pain, altered mental status, abdominal pain women, abdominal pain men, vaginal bleeding, weakness, fever, dyspnea, syncope, headache, dizziness, GI bleed, back pain, seizure, CVA, palpatations, mental health, musculoskeletal)? @ -prior EKG interpreted by me (3pts min.). @ -yes X-rays interpreted by me (1pt min.). @ -no CT interpreted by me (1pt min.). @ -no U/S interpreted by me (1pt. min.). @ -no What testing was considered but not performed or refused? (CT, X-rays, U/S, labs)? Why? @ -none What meds were considered but not given or refused? Why? @ -none Did you discuss the management of the patient with other professionals (professionals i.e. Dr., PA, OPHTHALMIC ASST, lab, RT, psych nurse, long term care social worker, chip machine operator, teacher, logistics officer, case checker)? Give summary @ -no Was smoking cessation discussed for >3mins.? @ -no Was critical care preformed (if so, how long)? @ -no Were there social determinants of health that impacted care today? How? (Homelessness, low income, unemployed, alcoholism, drug addiction, transportation, low edu. Level, literacy, decrease access to med. care, senior living, rehab)? @ -none Was there de-escalation of care discussed even if they declined (Discuss DNR or withdrawal of care, Hospice)? DNR status @ -no What co-morbidities impacted this encounter? (DM, HTN, Smoking, COPD, CAD, Cancer, CVA, ARF, Chemo, Hep., AIDS, mental health diagnosis, sleep apnea, morbid obesity)? @ -none Was patient admitted / discharged? Hospital course, mention meds given and route, prescriptions, significant lab abnormalities, going to OR and other pertinent info. @ - 58 female will be admitted, patient does have a c stroke and is presented w from MRI scan where she was told she has a stroke and sent to ER for further admission and evaluation. Patient is having right-sided weakness deficits with severe symptoms of dizziness and ataxia. Patient will admit for neurology evaluation Admitted Undiagnosed new problem with uncertain prognosis? @ -no Drug Therapy requiring intensive monitoring for toxicity (Heparin, Nitro, Insulin, Cardizem)? @ -no Were any procedures done? @ -no Diagnosis/symptom? @ -CVA Acute, or Chronic, or Acute on Chronic? @ -Acute Uncomplicated (without systemic symptoms) or Complicated (systemic symptoms)? @ -Complicated Side effects of treatment? @ -no Exacerbation, Progression, or Severe Exacerbation? @ -exacerbation Poses a threat to life or bodily function? How? (Chest pain, USA, NV, pneumonia, PE, COPD, DKA, ARF, appy, cholecystitis, CVA, Diverticulitis, Homicidal, Suicidal, threat to staff... and all critical care pts) @ -yes w acute CVA Reevaluation #5: 11/14/23 20:42 Differential CVA Ischemic stroke, hemorrhagic stroke, brain tumor, atypical migraine, Wernicke's encephalopathy, seizure, multiple sclerosis, meningitis, encephalitis, hypoglycemia, Guillain-Fernandez, electrolytes disturbance, myasthenia gravis.... This is not meant to be an all-inclusive list - Consultations Consultation #1: Spoke with [facility] who agrees to admit this patient Medical Decision Making - Medical Decision Making 58 female will be admitted, patient does have a c stroke and is presented w from MRI scan where she was told she has a stroke and sent to ER for further admission and evaluation. Patient is having right-sided weakness deficits with severe symptoms of dizziness and ataxia. Patient will admit for neurology evaluation - Lab Data Result diagrams: 11/20/23 16:51 11/20/23 16:51 Lab Results 11/14/23 11/14/23 11/14/23 Range/Units 18:57 18:57 19:00 WBC 9.9 (3.8-10.6) k/uL RBC 4.75 (3.80-5.40) m/uL Hgb 14.7 (11.4-16.0) gm/dL Hct 43.4 (34.0-46.0) % MCV 91.2 (80.0-100.0) fL MCH 30.9 (25.0-35.0) pg MCHC 33.9 (31.0-37.0) g/dL RDW 12.2 (11.5-15.5) % Plt Count 240 (150-450) k/uL MPV 8.3 Neutrophils % 52 % Lymphocytes % 39 % Monocytes % 6 % Eosinophils % 1 % Basophils % 1 % Neutrophils # 5.1 (1.3-7.7) k/uL Lymphocytes # 3.8 (1.0-4.8) k/uL Monocytes # 0.6 (0-1.0) k/uL Eosinophils # 0.1 (0-0.7) k/uL Basophils # 0.1 (0-0.2) k/uL PT (10.0-12.5) sec INR (<1.2) APTT (22.0-30.0) sec Sodium (137-145) mmol/L Potassium (3.5-5.1) mmol/L Chloride (98-107) mmol/L Carbon Dioxide (22-30) mmol/L Anion Gap mmol/L BUN (7-17) mg/dL Creatinine (0.52-1.04) mg/dL Est GFR (CKD-EPI)AfAm (>60 ml/min/1.73 sqM) Est GFR (CKD-EPI)NonAf (>60 ml/min/1.73 sqM) Glucose (74-99) mg/dL Estimated Ave Glu mg/dL 120 mg/dL Hemoglobin A1c 5.8 (<=6.0) % Plasma Lactic Acid Jaxson (0.7-2.0) mmol/L Calcium (8.4-10.2) mg/dL Phosphorus (2.5-4.5) mg/dL Magnesium (1.6-2.3) mg/dL Total Bilirubin (0.2-1.3) mg/dL AST (14-36) U/L ALT (4-34) U/L Alkaline Phosphatase (38-126) U/L Troponin I (0.000-0.034) ng/mL NT-Pro-B Natriuret Pep pg/mL Total Protein (6.3-8.2) g/dL Albumin (3.5-5.0) g/dL Triglycerides 338.00 H (0.00-149.00) mg/dL Cholesterol 189.00 (0.00-200.00) mg/dL LDL Cholesterol, Calc 80.9 (0.0-131.0) mg/dL VLDL Cholesterol, Calc 67.60 H (5.00-40.00) mg/dL HDL Cholesterol 40.50 (40.00-60.00) mg/dL Cholesterol/HDL Ratio 4.67 Ratio Urine Color Urine Appearance (Clear) Urine pH (5.0-8.0) Ur Specific [place] (1.001-1.035) Urine Protein (Negative) Urine Glucose (UA) (Negative) Urine Ketones (Negative) Urine Blood (Negative) Urine Nitrite (Negative) Urine Bilirubin (Negative) Urine Urobilinogen (<2.0) mg/dL Ur Leukocyte Esterase (Negative) Urine RBC (0-5) /hpf Urine WBC (0-5) /hpf Ur Squamous Epith Cells (0-4) /hpf Urine Bacteria (None) /hpf Urine Mucus (None) /hpf 11/14/23 11/14/23 11/14/23 Range/Units 19:00 19:00 19:58 WBC (3.8-10.6) k/uL RBC (3.80-5.40) m/uL Hgb (11.4-16.0) gm/dL Hct (34.0-46.0) % MCV (80.0-100.0) fL MCH (25.0-35.0) pg MCHC (31.0-37.0) g/dL RDW (11.5-15.5) % Plt Count (150-450) k/uL MPV Neutrophils % % Lymphocytes % % Monocytes % % Eosinophils % % Basophils % % Neutrophils # (1.3-7.7) k/uL Lymphocytes # (1.0-4.8) k/uL Monocytes # (0-1.0) k/uL Eosinophils # (0-0.7) k/uL Basophils # (0-0.2) k/uL PT (10.0-12.5) sec INR (<1.2) APTT (22.0-30.0) sec Sodium 141 (137-145) mmol/L Potassium 4.3 (3.5-5.1) mmol/L Chloride 109 H (98-107) mmol/L Carbon Dioxide 24 (22-30) mmol/L Anion Gap 8 mmol/L BUN 13 (7-17) mg/dL Creatinine 0.93 (0.52-1.04) mg/dL Est GFR (CKD-EPI)AfAm 80 (>60 ml/min/1.73 sqM) Est GFR (CKD-EPI)NonAf 69 (>60 ml/min/1.73 sqM) Glucose 103 H (74-99) mg/dL Estimated Ave Glu mg/dL mg/dL Hemoglobin A1c (<=6.0) % Plasma Lactic Acid Jaxson (0.7-2.0) mmol/L Calcium 9.4 (8.4-10.2) mg/dL Phosphorus 3.6 (2.5-4.5) mg/dL Magnesium 2.1 (1.6-2.3) mg/dL Total Bilirubin 0.5 (0.2-1.3) mg/dL AST 30 (14-36) U/L ALT 11 (4-34) U/L Alkaline Phosphatase 111 (38-126) U/L Troponin I <0.012 (0.000-0.034) ng/mL NT-Pro-B Natriuret Pep 116 pg/mL Total Protein 7.6 (6.3-8.2) g/dL Albumin 4.2 (3.5-5.0) g/dL Triglycerides (0.00-149.00) mg/dL Cholesterol (0.00-200.00) mg/dL LDL Cholesterol, Calc (0.0-131.0) mg/dL VLDL Cholesterol, Calc (5.00-40.00) mg/dL HDL Cholesterol (40.00-60.00) mg/dL Cholesterol/HDL Ratio Ratio Urine Color Yellow Urine Appearance Cloudy H (Clear) Urine pH 7.5 (5.0-8.0) Ur Specific [place] 1.016 (1.001-1.035) Urine Protein Negative (Negative) Urine Glucose (UA) Negative (Negative) Urine Ketones Negative (Negative) Urine Blood Negative (Negative) Urine Nitrite Positive H (Negative) Urine Bilirubin Negative (Negative) Urine Urobilinogen <2.0 (<2.0) mg/dL Ur Leukocyte Esterase Moderate H (Negative) Urine RBC 3 (0-5) /hpf Urine WBC 37 H (0-5) /hpf Ur Squamous Epith Cells 3 (0-4) /hpf Urine Bacteria Occasional H (None) /hpf Urine Mucus Rare H (None) /hpf 11/14/23 11/14/23 Range/Units 20:02 20:35 WBC (3.8-10.6) k/uL RBC (3.80-5.40) m/uL Hgb (11.4-16.0) gm/dL Hct (34.0-46.0) % MCV (80.0-100.0) fL MCH (25.0-35.0) pg MCHC (31.0-37.0) g/dL RDW (11.5-15.5) % Plt Count (150-450) k/uL MPV Neutrophils % % Lymphocytes % % Monocytes % % Eosinophils % % Basophils % % Neutrophils # (1.3-7.7) k/uL Lymphocytes # (1.0-4.8) k/uL Monocytes # (0-1.0) k/uL Eosinophils # (0-0.7) k/uL Basophils # (0-0.2) k/uL PT 9.9 L (10.0-12.5) sec INR 0.9 (<1.2) APTT 22.5 (22.0-30.0) sec Sodium (137-145) mmol/L Potassium (3.5-5.1) mmol/L Chloride (98-107) mmol/L Carbon Dioxide (22-30) mmol/L Anion Gap mmol/L BUN (7-17) mg/dL Creatinine (0.52-1.04) mg/dL Est GFR (CKD-EPI)AfAm (>60 ml/min/1.73 sqM) Est GFR (CKD-EPI)NonAf (>60 ml/min/1.73 sqM) Glucose (74-99) mg/dL Estimated Ave Glu mg/dL mg/dL Hemoglobin A1c (<=6.0) % Plasma Lactic Acid Jaxson 0.9 (0.7-2.0) mmol/L Calcium (8.4-10.2) mg/dL Phosphorus (2.5-4.5) mg/dL Magnesium (1.6-2.3) mg/dL Total Bilirubin (0.2-1.3) mg/dL AST (14-36) U/L ALT (4-34) U/L Alkaline Phosphatase (38-126) U/L Troponin I (0.000-0.034) ng/mL NT-Pro-B Natriuret Pep pg/mL Total Protein (6.3-8.2) g/dL Albumin (3.5-5.0) g/dL Triglycerides (0.00-149.00) mg/dL Cholesterol (0.00-200.00) mg/dL LDL Cholesterol, Calc (0.0-131.0) mg/dL VLDL Cholesterol, Calc (5.00-40.00) mg/dL HDL Cholesterol (40.00-60.00) mg/dL Cholesterol/HDL Ratio Ratio Urine Color Urine Appearance (Clear) Urine pH (5.0-8.0) Ur Specific [place] (1.001-1.035) Urine Protein (Negative) Urine Glucose (UA) (Negative) Urine Ketones (Negative) Urine Blood (Negative) Urine Nitrite (Negative) Urine Bilirubin (Negative) Urine Urobilinogen (<2.0) mg/dL Ur Leukocyte Esterase (Negative) Urine RBC (0-5) /hpf Urine WBC (0-5) /hpf Ur Squamous Epith Cells (0-4) /hpf Urine Bacteria (None) /hpf Urine Mucus (None) /hpf - EKG Data -: EKG Interpreted by Me (Patient is rate of 64 IL 131 QRS 62 QTc 422) Critical Care Time Critical Care Time: Yes Total Critical Care Time: 31 Disposition Clinical Impression: CVA (cerebral vascular accident), Carotid artery disease, Right sided weakness Disposition: ADMITTED IP TO THIS HOSP Condition: Serious Is patient prescribed a controlled substance at d/c from ED?: No Time of Disposition: 20:40
[2023-11-14 20:31] LABS: Basophils # (A) 0.1 k/uL (0-0.2); Basophils % (A) 1 %; Eosinophils # (A) 0.1 k/uL (0-0.7); Eosinophils % (A) 1 %; HCT 43.4 % (34.0-46.0); HGB 14.7 gm/dL (11.4-16.0); Lymphocytes # (A) 3.8 k/uL (1.0-4.8); Lymphocytes % (A) 39 %; MCH 30.9 pg (25.0-35.0); MCHC 33.9 g/dL (31.0-37.0); MCV 91.2 fL (80.0-100.0); Mean Platelet Volume 8.3; Monocytes # (A) 0.6 k/uL (0-1.0); Monocytes % (A) 6 %; Neutrophils # (A) 5.1 k/uL (1.3-7.7); Neutrophils % (A) 52 %; Platelet Count 240 k/uL (150-450); RBC 4.75 m/uL (3.80-5.40); RDW 12.2 % (11.5-15.5); WBC 9.9 k/uL (3.8-10.6)
[2023-11-14 20:36] LABS: Appearance,Urine Cloudy (Clear); Bacteria,Urine Occasional /hpf; Bilirubin,Urine Negative (Negative); Blood,Urine Negative (Negative); Color,Urine Yellow; Glucose,Urine (UA) Negative (Negative); Ketones,Urine Negative (Negative); Leukocyte Esterase,Urine Moderate (Negative); Mucus,Urine Rare /hpf; Nitrite,Urine Positive (Negative); PH, Urine 7.5 (5.0-8.0); Protein,Urine Negative (Negative); RBC,Urine 3 /hpf (0-5); Specific Gravity,Urine 1.016 (1.001-1.035); Squamous Epithelial Cell,Urine 3 /hpf (0-4); Urobilinogen,Urine <2.0 mg/dL (<2.0); WBC,Urine 37 /hpf (0-5)
[2023-11-14 20:43] LABS: ALT 11 U/L (4-34); African American GFR (CKD) 80 (>60 ml/min/1.73 sqM); Albumin 4.2 g/dL (3.5-5.0); Anion Gap 8 mmol/L; Blood Urea Nitrogen 13 mg/dL (7-17); Calcium 9.4 mg/dL (8.4-10.2); Carbon Dioxide 24 mmol/L (22-30); Chloride 109 mmol/L (98-107); Glucose 103 mg/dL (74-99); Non-African American GFR(CKD) 69 (>60 ml/min/1.73 sqM); Sodium 141 mmol/L (137-145); Total Bilirubin 0.5 mg/dL (0.2-1.3); Total Protein 7.6 g/dL (6.3-8.2)
[2023-11-14] MEDS: SODIUM CHLORIDE 0.9% 1,000 ML IV STA (20:50)
[2023-11-14] MEDS: ASPIRIN 325 MG TAB PO STA (20:50)
[2023-11-14 20:51] LABS: NT-Pro-B-Type Natriuretic Pept 116 pg/mL
[2023-11-14] MEDS: SODIUM CHLORIDE 0.9% 1,000 ML IV SCH (20:51)
[2023-11-14 20:54] LABS: AST 30 U/L (14-36); Alkaline Phosphatase 111 U/L (38-126); Magnesium 2.1 mg/dL (1.6-2.3); Phosphorus 3.6 mg/dL (2.5-4.5); Potassium 4.3 mmol/L (3.5-5.1)
[2023-11-14 21:04] LABS: INR 0.9 (<1.2); Partial Thromboplastin Time 22.5 sec (22.0-30.0); Prothrombin Time 9.9 sec (10.0-12.5)
--- NOTE | 2023-11-15 08:40 | P.HPIM ---
History of Present Illness Patient is a pleasant 58 years old female with past medical history of COPD, hyperlipidemia, osteoarthritis and chronic low back pain. Presents because of abnormal MRI of the brain. Patient came to this facility about a week ago on for right arm and leg weakness suspicious for stroke but patient left AMA. She followed up with her PCP Dr. Yang who had her have an MRI of the brain and yesterday call her she has a stroke and referred her to the emergency room. Patient is awake and alert lying in bed comfortable no distress. Communicates normally and follow commands. She states that her weakness on the right side is slightly better for her, she denies numbness or tingling but states she has some dizziness and embolism problem is coming from I can to work through because of COVID, but This is actually only just shortness of Patient denies chest pain dyspnea. No coughing. No change in urine or bowel habits. She denies dysuria or change in frequency before she coming to the hospital but she is complaining from urgency. Patient states that she began urine become more frequent when she came to the hospital and she attributes that to the fluid she is getting through the vein. Also she has occasions of blurred vision on her left eye she had [address] this [address] She seen Dr. Willard last week who checked her eye and told her it is fine. Patient states that she supposed to follow-up with vascular surgery for right neck artery narrowing. Patient smokes about 1 pack per day, she was counseled to quit with risk exp lained for her she agrees and she agrees to the nicotine patch. She smokes marijuana occasionally. No illicit drugs. Patient states normally she does not take aspirin and she will start taking aspirin 81 mg yesterday In emergency room patient was started on 325 mg which is new for her as well. Patient is hemodynamically stable Labs reviewed showing unremarkable CBC, INR, BMP, liver enzymes and troponin Urine analysis is suspicious for infection EKG showing sinus rhythm at [address]-T changes CT of the brain is negative for acute infarct which was done on . Chest x- ray done also 1 week ago showing negative for acute process. Carotid duplex done on showing more than 70% stenosis of bilateral carotid arteries left greater than right In the emergency room patient was started on aspirin 325 mg and Rocephin 2 g daily. And admitted with a neurology consultation Review of Systems Review of systems CONSTITUTIONAL: No fever, no malaise, no fatigue. HEENT: No recent visual problems or hearing problems. Denied any sore throat. CARDIOVASCULAR: No orthopnea, PND, no palpitations, no syncope. PULMONARY: No shortness of breath, no cough, no hemoptysis. GASTROINTESTINAL: No diarrhea, no nausea, no vomiting, no abdominal pain. Norm oactive bowel sounds. NEUROLOGICAL: No headaches, no weakness, no numbness. HEMATOLOGICAL: Denies any bleeding or petechiae. GENITOURINARY: Denies any burning micturition, frequency MUSCULOSKELETAL/RHEUMATOLOGICAL: Denies any joint pain, swelling, or any muscle pain. ENDOCRINE: Denies any polyuria or polydipsia. Past Medical History Past Medical History: COPD, Hyperlipidemia, Osteoarthritis (OA), Pneumonia Additional Past Medical History / Comment(s): chronic low back pain, spinal stenosis, DDD, spinal bifida, chronic constipation, emphysema, pneumonia 05/2021, hiatal hernia, fell 09/03/21 and fx left wrist-has splint on, blockages in carotid arteries History of Any Multi-Drug Resistant Organisms: None Reported Past Surgical History: Breast Surgery, Cholecystectomy, Tubal Ligation Additional Past Surgical History / Comment(s): Lipoma removed from below L breast, rhinoplasty. Past Anesthesia/Blood Transfusion Reactions: No Reported Reaction Additional Past Anesthesia/Blood Transfusion Reaction / Comment(s): "severe needle phobia"- small veins, diff IV starts Past Psychological History: Anxiety, Bipolar, Depression, Panic Disorder Additional Psychological History / Comment(s): . Smoking Status: Current every day smoker Past Alcohol Use History: None Reported Additional Past Alcohol Use History / Comment(s): Pt started smoking in 1976, 1 ppd smoker. Past Drug Use History: Marijuana - Past Family History Mother Family Medical History: Respiratory Disorder Additional Family Medical History / Comment(s): Mother is from pulmonary fibrosis. Father Family Medical History: Cancer Additional Family Medical History / Comment(s): lung cancer. Medications and Allergies Home Medications Medication Instructions Recorded Confirmed Type ALPRAZolam [Xanax] 0.5 mg PO BID PRN 11/07/23 11/14/23 History QUEtiapine [SEROquel] 100 mg PO HS PRN 11/07/23 11/14/23 History Aspirin EC [Ecotrin Low Dose] 81 mg PO DAILY 11/14/23 11/14/23 History Allergies Allergy/AdvReac Type Severity Reaction Status Date / Time codeine Allergy Swelling Verified 11/14/23 19:49 lurasidone [From Latuda] Allergy Vomiting Verified 11/14/23 19:49 Penicillins Allergy Swelling Verified 11/14/23 19:49 Physical Exam Vitals: Vital Signs Temp Pulse Pulse Resp BP BP Pulse Ox 11/15/23 03:55 98.2 F 66 13 120/67 95 11/15/23 00:15 98.7 F 70 12 113/77 11/14/23 18:30 98.4 F 98 20 162/86 98 Intake and Output 11/14/23 11/15/23 11/15/23 22:59 06:59 14:59 Other: Voiding Method Toilet # Voids 1 Weight 49.895 kg 49.895 kg GENERAL: The patient is alert and oriented x3, not in any acute distress. Well developed, well nourished. HEENT: Pupils are round and equally reacting to light. EOMI. No scleral icterus. No conjunctival pallor. Normocephalic, atraumatic. No pharyngeal erythema. No thyromegaly. CARDIOVASCULAR: S1 and S2 present. No murmurs, rubs, or gallops. PULMONARY: Chest is clear to auscultation, no wheezing , no crackles. ABDOMEN: Soft, nontender, nondistended, normoactive bowel sounds. No palpable organomegaly. MUSCULOSKELETAL: No joint swelling or deformity. EXTREMITIES: No cyanosis, clubbing, or pedal edema. -NEUROLOGICAL: Gross neurological examination did not reveal any focal deficits. Cranial nerves are grossly intact. Mild 4+/5 weakness on the right arm and leg. Rest of exam is 5/5 and sensation is intact SKIN: No rashes. no petechiae. Results CBC & Chem 7: 11/14/23 19:00 11/14/23 19:00 Labs: Abnormal Lab Results - Last 24 Hours (Table) 11/14/23 11/14/23 11/14/23 Range/Units 19:00 19:58 20:35 PT 9.9 L (10.0-12.5) sec Chloride 109 H (98-107) mmol/L Glucose 103 H (74-99) mg/dL Urine Appearance Cloudy H (Clear) Urine Nitrite Positive H (Negative) Ur Leukocyte Esterase Moderate H (Negative) Urine WBC 37 H (0-5) /hpf Urine Bacteria Occasional H (None) /hpf Urine Mucus Rare H (None) /hpf Thrombosis Risk Factor Assmnt - Choose All That Apply Each Factor Represents 1 point: Age 41-60 years Thrombosis Risk Factor Assessment Total Risk Factor Score: 1 Thrombosis Risk Factor Assessment Level: Low Risk Assessment and Plan Assessment: Acute stroke with right hemiparesis. Also patient has some periods of blurred vision/vision difficulty in the left eye that improved which could be related to above. Possible acute urinary tract infection Bilateral internal carotid artery stenosis Nicotine dependence Plan: Continue with aspirin 325 mg Neurology consult Vascular surgery consult Continue with ceftriaxone and follow-up culture results Labs and medication were reviewed.. Continue same treatment. Continue with symptomatic treatment. Resume home medication. Monitor labs and vitals. DVT and GI prophylaxis. Further recommendations as per clinical course of the patient DVT prophylaxis: Subcutaneous heparin GI Prophylaxis: Pepcid PT/OT: Pending Prognosis is guarded
[2023-11-15] MEDS: ASPIRIN 325 MG TAB PO SCH (08:51)
[2023-11-15] MEDS: HEPARIN SODIUM,PORCINE 5,000 UNIT/ML 1 ML VIAL SQ SCH (08:55)
[2023-11-15] MEDS: FAMOTIDINE 20 MG/2 ML VIAL IV SCH (08:55)
[2023-11-15] MEDS: NICOTINE 21MG/24HR PATCH TRANSDERM SCH (11:48)
--- NOTE | 2023-11-15 12:52 | P.GSCN ---
History of Present Illness Consult date: 11/15/23 Reason for Consult: Carotid stenosis Requesting physician: Carlos E Sheet History of present illness: This is a pleasant 58-year-old female with a history of COPD, emphysema, previous TIA/CVA, and nicotine dependence who presented to the emergency department instructed by her PCP for concerns for acute stroke. Apparently the patient was seen and admitted to the hospital on 11/07/2023. 2 days prior she had right-sided flaccidity to both upper and lower extremities. Also complaints of left vision loss. At that time she had a carotid duplex that showed bilateral ICA stenosis greater than 70%. She had a brain CT that reported mild periventricular chronic white matter ischemic type changes. Follow-up MRI can b e performed as clinically indicated. Apparently patient stated that she was nervous and needed a cigarette so she left AGAINST MEDICAL ADVICE. Today she presents back to the hospital with complaints of some residual right upper and lower extremity weakness. States initial paralysis lasted 12 to 18 hours and has gotten better over the last 2 weeks. She continues to smoke. 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 Outpatient MRI from 11/14/2023 reports multiple foci of restricted diffusion along subcortical region of posterior left frontal lobe and left frontal parietal junction. Findings compatible with acute infarcts. Embolic phenomenon considered. Patient reports smoking a pack per day for the last 40 years. She currently denies any new focal deficits, no shortness of breath, chest pain, abdominal pain, nausea, or vomiting. Denies any history of cardiovascular disease or peripheral arterial disease. Review of Systems A 14 point review systems was completed all pertinent positives and negatives as stated in the HPI. Past Medical History Past Medical History: COPD, Hyperlipidemia, Osteoarthritis (OA), Pneumonia Additional Past Medical History / Comment(s): chronic low back pain, spinal stenosis, DDD, spinal bifida, chronic constipation, emphysema, pneumonia 05/2021, hiatal hernia, fell 09/03/21 and fx left wrist-has splint on, blockages in carotid arteries History of Any Multi-Drug Resistant Organisms: None Reported Past Surgical History: Breast Surgery, Cholecystectomy, Tubal Ligation Additional Past Surgical History / Comment(s): Lipoma removed from below L breast, rhinoplasty. Past Anesthesia/Blood Transfusion Reactions: No Reported Reaction Additional Past Anesthesia/Blood Transfusion Reaction / Comm: "severe needle phobia"- small veins, diff IV starts Past Psychological History: Anxiety, Bipolar, Depression, Panic Disorder Additional Psychological History / Comment(s): . Smoking Status: Current every day smoker Past Alcohol Use History: None Reported Additional Past Alcohol Use History / Comment(s): Pt started smoking in 1976, 1 ppd smoker. Past Drug Use History: Marijuana - Past Family History Mother Family Medical History: Respiratory Disorder Additional Family Medical History / Comment(s): Mother is from pulmonary fibrosis. Father Family Medical History: Cancer Additional Family Medical History / Comment(s): lung cancer. Medications and Allergies Home Medications Medication Instructions Recorded Confirmed Type ALPRAZolam [Xanax] 0.5 mg PO BID PRN 11/07/23 11/14/23 History QUEtiapine [SEROquel] 100 mg PO HS PRN 11/07/23 11/14/23 History Aspirin EC [Ecotrin Low Dose] 81 mg PO DAILY 11/14/23 11/14/23 History Allergies Allergy/AdvReac Type Severity Reaction Status Date / Time codeine Allergy Swelling Verified 11/14/23 19:49 lurasidone [From Latuda] Allergy Vomiting Verified 11/14/23 19:49 Penicillins Allergy Swelling Verified 11/14/23 19:49 Surgical - Exam Vital Signs Temp Pulse Resp BP Pulse Ox 98.4 F 98 20 162/86 98 11/14/23 18:30 11/14/23 18:30 11/14/23 18:30 11/14/23 18:30 11/14/23 18:30 General appearance: The patient is alert, oriented, appears in no acute d istress. HET: Head is normocephalic and atraumatic. Pupils are equal and reactive. Neck: Supple. Left carotid bruit noted. Heart: Regular. Lungs: Equal expansion, normal respiratory effort. Abdomen: Soft, nontender, nondistended. Extremities: Normal skin color and turgor. Palpable femoral and posterior tibial pulses. Neurological: Upper and lower extremity weakness. Patient has facial symmetry, speech is fluent, and is able to follow commands. Results - Labs 11/14/23 19:00 11/14/23 19:00 Abnormal Lab Results - Last 24 Hours (Table) 11/14/23 11/14/23 11/14/23 Range/Units 19:00 19:58 20:35 PT 9.9 L (10.0-12.5) sec Chloride 109 H (98-107) mmol/L Glucose 103 H (74-99) mg/dL Urine Appearance Cloudy H (Clear) Urine Nitrite Positive H (Negative) Ur Leukocyte Esterase Moderate H (Negative) Urine WBC 37 H (0-5) /hpf Urine Bacteria Occasional H (None) /hpf Urine Mucus Rare H (None) /hpf Diabetes panel 11/14/23 Range/Units 19:00 Sodium 141 (137-145) mmol/L Potassium 4.3 (3.5-5.1) mmol/L Chloride 109 H (98-107) mmol/L Carbon Dioxide 24 (22-30) mmol/L BUN 13 (7-17) mg/dL Creatinine 0.93 (0.52-1.04) mg/dL Glucose 103 H (74-99) mg/dL Calcium 9.4 (8.4-10.2) mg/dL AST 30 (14-36) U/L ALT 11 (4-34) U/L Alkaline Phosphatase 111 (38-126) U/L Total Protein 7.6 (6.3-8.2) g/dL Albumin 4.2 (3.5-5.0) g/dL Calcium panel 11/14/23 Range/Units 19:00 Calcium 9.4 (8.4-10.2) mg/dL Phosphorus 3.6 (2.5-4.5) mg/dL Albumin 4.2 (3.5-5.0) g/dL Pituitary panel 11/14/23 Range/Units 19:00 Sodium 141 (137-145) mmol/L Potassium 4.3 (3.5-5.1) mmol/L Chloride 109 H (98-107) mmol/L Carbon Dioxide 24 (22-30) mmol/L BUN 13 (7-17) mg/dL Creatinine 0.93 (0.52-1.04) mg/dL Glucose 103 H (74-99) mg/dL Calcium 9.4 (8.4-10.2) mg/dL Adrenal panel 11/14/23 Range/Units 19:00 Sodium 141 (137-145) mmol/L Potassium 4.3 (3.5-5.1) mmol/L Chloride 109 H (98-107) mmol/L Carbon Dioxide 24 (22-30) mmol/L BUN 13 (7-17) mg/dL Creatinine 0.93 (0.52-1.04) mg/dL Glucose 103 H (74-99) mg/dL Calcium 9.4 (8.4-10.2) mg/dL Total Bilirubin 0.5 (0.2-1.3) mg/dL AST 30 (14-36) U/L ALT 11 (4-34) U/L Alkaline Phosphatase 111 (38-126) U/L Total Protein 7.6 (6.3-8.2) g/dL Albumin 4.2 (3.5-5.0) g/dL - Imaging Comments: Carotid ultrasound: Greater than 70% stenosis of the bilateral carotid bifurcations, left greater than right by peak systolic velocity. Brain MRI: Multiple foci of restricted diffusion along the subcortical region of the posterior left frontal lobe left frontal parietal junction. Findings compatible with acute infarcts. Embolic phenomenon is a consideration. Moderate burden of chronic small vessel ischemic disease is new compared to the 2016 exam. No midline shift, mass effect, hydrocephalus or herniation. Assessment and Plan Assessment: 1. Hemodynamically severe left ICA stenosis, symptomatic 2. Acute ischemic infarcts left frontal lobe 3. Right-sided weakness 4. Left visual disturbances 5. Nicotine dependence 6. COPD 7. Emphysema Plan: 1. Consult to PT/OT 2. Continue aspirin, atorvastatin 40 mg added, recommend Plavix once seen and cleared by neurology 3. Recommend nicotine cessation 4. Cardiology consulted, cardiac clearance for left carotid endarterectomy 5. Continue workup and recommendations from neurology 6. Plan for carotid endarterectomy in near future, patient tentatively scheduled for 11/20/2023 Thank you for this consultation, we will continue to follow. The impression and plan of care has been dictated as directed. I performed a history and examination of this patient, discussed the same with the dictator. I agree with the dictator's note ,documented as a scribe. Any additional findings or plans will be noted.
--- NOTE | 2023-11-15 15:29 | CT ---
EXAMINATION TYPE: CT head without contrast CT angio head neck DATE OF EXAM: 11/15/2023 COMPARISON: MRI 11/14/2023 HISTORY: 58-year-old female acute stroke TECHNIQUE: Contiguous axial scanning of the head and neck performed with IV Contrast, patient injecte d with 65 mL of Isovue 300. Coronal/sagittal reconstructions performed. 3-D reconstructions generated on a dedicated independent workstation. CT DLP: 1415.9 mGycm Automated exposure control for dose reduction was used. FINDINGS: CT head without contrast: Moderate patchy deep white matter and subcortical hypodensities, left greater than right especially a long the frontoparietal junctions. There seems to be some minimal loss of bustamante-white matter orientati on anterior left parietal lobe near the vertex, axial image 47 which corresponds to findings on MRI. Otherwise, no evidence for acute intracranial hemorrhage, mass, mass effect, midline shift, or extra- axial fluid collection. No hydrocephalus. No effacement of cerebral sulci or basal subarachnoid ciste rns. Slight rightward nasal septal deviation. Orbits and globes are intact. Mastoid air cells well pneumat ized. CTA NECK: Advanced bullous emphysema left greater than right upper lung. There is a focal irregular thickening lateral left upper lobe measuring up to 9 mm, appearance unchanged from 06/19/2021 suggesting chronic pleural parenchymal scarring. Conventional arch vessel branching anatomy. Mild stenosis at the origin of the left subclavian artery. Moderate focal stenosis of the origin of the left vertebral artery. Mild stenosis at the origin of the right subclavian artery. Bilateral vertebral arteries are otherwise patent throughout their course. Mild smooth stenosis upper third right common carotid artery. Severe, just above 70% stenosis of the origin of the right ICA. Remainder of the right ICA is patent. Left common carotid artery is patent with mild stenosis upper third segment due to noncalcified plaqu e. The proximal left ICA shows a 1 cm long segment of severe, 80% stenosis at and just above the bulb. R emainder of the left ICA is patent. NASCET criteria is utilized. CTA HEAD: The vertebral arteries and basilar artery are patent as is the remainder of the posterior circulation . The bilateral internal carotid arteries and remainder of the anterior circulation are patent. No aneurysmal change is seen. Dural venous sinuses are patent. IMPRESSION: CT HEAD WITHOUT CONTRAST 1. MODERATE PATCHY BURDEN OF CHRONIC SMALL VESSEL ISCHEMIC DISEASE ESPECIALLY IN THE SUPERIOR SUBCORT ICAL REGIONS, LEFT GREATER THAN RIGHT. 2. SMALL AREA OF ACUTE INFARCT IS SUGGESTED IN THE ANTERIOR LEFT PARIETAL LOBE ( SEEN ON MRI) GIVEN BLURRING OF THE BUSTAMANTE-WHITE MATTER INTERFACE. 3. NO MASS EFFECT, MIDLINE SHIFT, OR ACUTE INTRACRANIAL HEMORRHAGE. CTA NECK: 4. A 1 cm long segment of severe, 80% stenosis at and just above the left carotid bulb. 5. Severe, just over 70% stenosis at the origin of the right ICA. 6. Moderate focal stenosis at the origin of the left vertebral artery. CTA HEAD: 7. No large vessel intracranial arterial occlusion, significant stenosis, or aneurysmal changes seen.
[2023-11-15] MEDS: CLOPIDOGREL 75 MG TAB PO SCH (20:44)
[2023-11-15] MEDS: ATORVASTATIN 40 MG TAB PO SCH (20:44)
[2023-11-15] MEDS: ALPRAZolam 0.5 MG TAB PO PRN (20:44)
[2023-11-15] MEDS: FAMOTIDINE 20 MG TAB PO SCH (20:44)
[2023-11-15] MEDS: QUEtiapine 100 MG TAB PO PRN (21:45)
--- NOTE | 2023-11-15 23:47 | P.CNNES ---
History of Present Illness Consult date: 11/15/23 Requesting physician: Baldemar Red Reason for Consult: CVA History of Present Illness: Patient is a 58-year-old right-handed female with history of hypertension, tobacco use, came to the hospital yesterday at 6:04 PM referred by her primary physician for abnormal brain MRI for further evaluation. Patient states that she has history of some dizziness, off balance "all her life". The symptoms were more when she gets up, she feels dizzy and the symptoms goes away shortly. She always had "bad balance". Symptoms have got worse in the last few weeks. On 11/05/2023, she came home from work and then collapsed, lost all feeling on the right side. Her symptoms stayed like this overnight and next day she was able to walk although not completely well. She was dragging her right arm. She has been having problems walking for the last 10 days, dizziness. She feels off balance, not walking properly. She is having probable amaurosis fugax, as her left eye uses vision for a short while. She sometimes see bright light, puzzle pieces in the left eye. Patient can see around these puzzle pieces but not fully. Patient came to ER on 11/07/2023 where she had a CT scan of the head. She was recommended to be hospitalized, but patient left from ER AMA. Patient underwent outpatient MRI of the brain, which revealed evidence of an acute stroke, therefore she was referred to go to the hospital. Vital signs on arrival blood pressure 162/86, pulse rate 98, temperature 98.4. The blood pressure came down to 113/77. Blood test shows normal CBC, PT PTT, normal CMP. Troponin negative. UA shows positive nitrite, moderate leukocyte esterase, 37 WBC and occasional bacteria. EKG shows sinus rhythm. CT head revealed moderate patchy burden of chronic small vessel ischemic disease, especially in the superior subcortical region, left greater than right. Small area of acute infarct is suggested in the anterior left parietal lobe. No mass effect or midline shift or acute hemorrhage. I personally reviewed CT head, agree with the findings. Patient started taking aspirin 81 mg daily since 11/01/2023. The dose increased to 325 mg daily since she came to the hospital yesterday. Also on Lipitor 40 mg. Patient has smoked 1 pack/day for 45 years, denies diabetes. She has history of hypertension. Denies any alcohol use. She smokes marijuana occasionally. Denies hyperlipidemia. Patient states that she was seen by major account representative for her visual disturbance, and was found to have hypertensive retinopathy. Patient does not use any assistive device. She lives with her daughter and her 4 grandchildren. Review of Systems Constitutional: Reports fever (B4 feeling, not now), Denies chills Eyes: bilateral blurred vision, bilateral tunnel vision/blind spots (Puzzle pieces), denies diplopia, denies pain Ears: deny: decreased hearing, ear discharge Ears, nose, mouth and throat: Reports sore throat, Reports vertigo, Denies headache Cardiovascular: Reports chest pain, Reports lightheadedness, Denies shortness of breath Respiratory: Reports cough, Reports excessive sputum Gastrointestinal: Reports diarrhea, Reports nausea, Denies abdominal pain, Denies vomiting Genitourinary: Denies dysuria, Denies mixed incontinence Musculoskeletal: Denies low back pain, Denies neck pain Integumentary: Denies pruritus, Denies rash Neurological: Reports as per HPI Psychiatric: Reports anxiety, Reports depression Hematologic/Lymphatic: Reports easy bruising, Denies easy bleeding Past Medical History Past Medical History: COPD, Hyperlipidemia, Osteoarthritis (OA), Pneumonia Additional Past Medical History / Comment(s): chronic low back pain, spinal stenosis, DDD, spinal bifida, chronic constipation, emphysema, pneumonia 05/2021, hiatal hernia, fell 09/03/21 and fx left wrist-has splint on, blockages in carotid arteries History of Any Multi-Drug Resistant Organisms: None Reported Past Surgical History: Breast Surgery, Cholecystectomy, Tubal Ligation Additional Past Surgical History / Comment(s): Lipoma removed from below L breast, rhinoplasty. Past Anesthesia/Blood Transfusion Reactions: No Reported Reaction Additional Past Anesthesia/Blood Transfusion Reaction / Comment(s): "severe needle phobia"- small veins, diff IV starts Past Psychological History: Anxiety, Bipolar, Depression, Panic Disorder Additional Psychological History / Comment(s): . Smoking Status: Current every day smoker Past Alcohol Use History: None Reported Additional Past Alcohol Use History / Comment(s): Pt started smoking in 1976, 1 ppd smoker. Past Drug Use History: Marijuana - Past Family History Mother Family Medical History: Respiratory Disorder Additional Family Medical History / Comment(s): Mother is from pulmonary fibrosis. Father Family Medical History: Cancer Additional Family Medical History / Comment(s): lung cancer. Medications and Allergies Home Medications Medication Instructions Recorded Confirmed Type ALPRAZolam [Xanax] 0.5 mg PO BID PRN 11/07/23 11/14/23 History QUEtiapine [SEROquel] 100 mg PO HS PRN 11/07/23 11/14/23 History Aspirin EC [Ecotrin Low Dose] 81 mg PO DAILY 11/14/23 11/14/23 History Allergies Allergy/AdvReac Type Severity Reaction Status Date / Time codeine Allergy Swelling Verified 11/14/23 19:49 lurasidone [From Latuda] Allergy Vomiting Verified 11/14/23 19:49 Penicillins Allergy Swelling Verified 11/14/23 19:49 Physical Examination - Vital Signs Vital Signs: Vital Signs Temp Pulse Pulse Resp BP BP Pulse Ox 11/15/23 14:00 60 16 11/15/23 12:00 60 143/79 100 11/15/23 08:00 98.1 F 65 16 146/85 99 11/15/23 03:55 98.2 F 66 13 120/67 95 11/15/23 00:15 98.7 F 70 12 113/77 11/14/23 18:30 98.4 F 98 20 162/86 98 Intake and Output 11/15/23 11/15/23 11/15/23 06:59 14:59 22:59 Intake Total 980 Balance 980 Intake: Intake, IV Titration 500 Amount Sodium Chloride 0.9% 1, 500 000 ml @ 100 mls/hr IV . Q10H [facility] Rx#:[id number] Oral 480 Other: Voiding Method Toilet Toilet # Voids 1 1 Weight 49.895 kg Patient is a middle aged female, in no acute distress. Patient is alert awake oriented to time place and person. Speech and language functions are normal. Patient can name and repeat very well. No aphasia or dysarthria. Attention, concentration and fund of knowledge is adequate. On cranial nerve examination, pupils are equal, round and reacting to light, visual nieves are full on confrontation, with no neglect on double simultaneous stimulation. Extraocular muscles are intact with no nystagmus. Face is symmetric, tongue protrudes to the midline. Palatal elevation and sensation normal, hearing and shoulder shrug normal, facial sensation normal. On muscle strength testing, there is no pronator drift and the strength is normal in arms and legs distally and proximally. Deep tendon reflexes are symmetric 1+ in the upper limbs, 3 at the knees, 2 ankles and plantars downgoing bilaterally. Sensory to touch is equal in the arms and legs. Patient neglects right lower extremity for double simultaneous stimulation but not the upper extremities. Cerebellar function showed no ataxia for [id number] testing on either side. No dysdiadochokinesia. Patient has ataxia of right lower extremity for [id number] testing. Tone and bulk of muscles are normal. Gait deferred.. On general examination, there is no carotid bruit or murmur, S1-S2 audible. Chest is clear on consultation. Abdomen is soft nontender. No organomegaly, bowel sounds present. Peripheral pulses are present. No peripheral edema. Results - Laboratory Findings CBC and BMP: 11/14/23 19:00 11/14/23 19:00 Abnormal Lab Findings: Abnormal Labs 11/14/23 11/14/23 11/14/23 19:00 19:58 20:35 PT 9.9 L Chloride 109 H Glucose 103 H Urine Appearance Cloudy H Urine Nitrite Positive H Ur Leukocyte Esterase Moderate H Urine WBC 37 H Urine Bacteria Occasional H Urine Mucus Rare H Assessment and Plan Assessment: * Acute ischemic stroke involving left hemispheric region. MRI of the brain revealed restricted diffusion along the subcortical region of the posterior left frontal lobe and left frontoparietal junction, somewhat in watershed distribution. * Bilateral ICA stenosis, left side symptomatic with 80% stenosis. Right ICA stenosis just over 70% at the origin. Moderate focal stenosis at the origin of the left vertebral artery. Patient also has just over 70% stenosis of the origin of right ICA. * Hypertension * Tobacco use * Probable UTI Plan: * Patient has symptomatic left ICA stenosis. Patient's current NIH stroke scale is 2, mainly related to right leg ataxia, and slight sensory neglect of the right leg with double simultaneous stimulation. Patient was not a candidate for tPA because came outside the window for tPA. * MRI of the brain without contrast, revealed multiple foci of restricted diffusion along the subcortical region of the posterior left frontal lobe and left frontoparietal junction. Findings compatible with acute infarcts. Embolic phenomenon is consideration. Moderate burden of chronic small vessel ischemic disease is new compared to 2016 exam. I personally reviewed MRI agree with the findings, although it appears the ischemic lesions are involving the watershed territory between the left GAVIN/MCA. * 2-D echo with bubble study to rule out PFO * CTA head revealed no large vessel intracranial arterial occlusion, significant stenosis or aneurysmal change. * CTA of the neck revealed a 1 cm long segment of severe, 80% stenosis at and just above the left carotid bulb. Severe, just over 70% stenosis at the o rigin of the right ICA. Moderate focal stenosis at the origin of the left vertebral artery. * Carotid Doppler, performed outpatient 11/07/2023 revealed > 70% stenosis of bilateral carotid bifurcation, left greater than right. Antegrade flow in both vertebral arteries. * Vascular surgery has seen the patient for hemodynamically significant left ICA stenosis. Patient to undergo left CEA in this hospitalization, scheduled tentatively on 11/20/2023.. * Fasting a.m. lipid panel * Hemoglobin A1c * Permissive hypertension for next 24-48 hours * Patient's dose of aspirin increased to 325 mg daily. Concerned about recurrence of stroke, therefore we will start Plavix 75 mg daily as well. Discussed with vascular surgery, agree with starting Plavix 75 mg without loading dose. * Neuro checks every 4 hours. * Telemetry monitoring rule out any arrhythmia * Patient on ceftriaxone for possible UTI. * Recommend complete tobacco cessation. * PT, OT, speech therapy * DVT prophylaxis: Heparin 5000 units subcu every 8 hours * Dr. Hui will cover neurology service over the weekend, and Dr. Sims starting service on Saturday morning. Thank you for the consult. Time with Patient: Greater than 30
--- NOTE | 2023-11-16 08:22 | P.PN ---
Subjective Progress Note Date: 11/16/23 Principal diagnosis: CVA, carotid stenosis patient seen and examined. Currently having ECHO at bedside. No new complaints overnight. Objective - Vital Signs Vital signs: Vital Signs Temp 97.9 F 11/16/23 04:00 Pulse 66 11/16/23 04:00 Resp 16 11/16/23 04:00 BP 135/67 11/16/23 04:00 Pulse Ox 99 11/16/23 04:00 FiO2 Intake & Output 11/15/23 11/16/23 11/16/23 18:59 06:59 18:59 Intake Total 980 Balance 980 Intake: Intake, IV Titration 500 Amount Sodium Chloride 0.9% 1, 500 000 ml @ 100 mls/hr IV . Q10H [facility] Rx#:[id number] Oral 480 Other: Voiding Method Toilet Toilet Bedside Commode # Voids 1 1 - Exam Upper and lower extremity weakness palpable PT pulses bilaterally - Constitutional General appearance: Present: average body habitus, cooperative - EENT Eyes: Present: PERRLA - Respiratory Respiratory: bilateral: CTA - Cardiovascular Rhythm: regular - Psychiatric Psychiatric: Present: A&O x's 3, appropriate affect - Labs CBC & Chem 7: 11/14/23 19:00 11/14/23 19:00 Assessment and Plan Assessment: 1. Hemodynamically severe left ICA stenosis, symptomatic 2. Acute ischemic infarcts left frontal lobe 3. Right-sided weakness 4. Left visual disturbances 5. Nicotine dependence 6. COPD 7. Emphysema Plan: Continue aspirin, atorvastatin 40 mg added, recommend Plavix Recommend nicotine cessation Awaiting cardiac clearance for left carotid endarterectomy Plan for carotid endarterectomy in near future, patient tentatively scheduled for 11/20/2023
[2023-11-16 10:12] LABS: Chol/HDL Ratio 4.67 Ratio; LDL Cholesterol,Calculated 80.9 mg/dL (0.0-131.0)
--- NOTE | 2023-11-16 10:44 | P.PN ---
Subjective This is a pleasant 75 years old female with past medical history of multiple medical problems including CVA/TIA, dementia, diabetes mellitus, hypertension, hyperlipidemia, coronary artery disease, heart failure, syncope, right carotid artery stenosis and pulmonary hypertension and UTI with ESBL bacteria. She presents because of dyspnea per records. Patient is documented to have 2 L of oxygen at home at baseline. Patient currently is on BiPAP and very sleepy and cannot provide information. It was obtained from medical records and staff at bedside Patient is also obese with decreased air entry on both sides. Later on patient workup and she told me she came because of dyspnea. However she denies chest pain. She has headache but no dizziness. No weakness in arms and legs and she can move them both symmetrically. No diarrhea or abdominal pain or vomiting. No urinary complaint. She told me she quit smoking about 3 to 4 years ago, History still limited by the patient condition. On admission patient was hypoxic and she was placed on BiPAP also she was tachypneic RR 30/min this morning patient spiked a fever of 101. Patient INR is 0.8 and labs show a leukocytosis of 13,000, basic metabolic panel and liver enzymes were unremarkable proBNP is evaded 3890. Troponin is elevated 0.06. Chest x-ray are reviewed showing bilateral fluffy infiltrates more on the lower and middle zone. Most likely suspicious for fluid overload but cannot exclude pneumonia per radiologist. EKG sinus rhythm at 81 first first-degree heart block with no significant ST-T changes Echocardiogram done on 01/2023 showing preserved ejection fraction 55 to 60% with mild to moderate mitral regurgitation Patient was started on IV Lasix 40 mg every 8 hours. 11/16/2023 Patient presents with left CVA and right hemiparesis for more than a week and thought to be secondary to severe left internal carotid artery stenosis at 80% MRI of the brain showing multiple foci of infarct involving the left frontal lobe which is thought of embolic phenomenon. Therefore vascular surgery are planning to for her to undergo endarterectomy of her left internal carotid artery on this coming Sunday 11/19, this was explained for the patient in details and she looks agreeable to proceed with this plan As part of evaluation she will need preop assessment. Patient was found to be at some risk from this procedure. Cardiology were consulted. Echocardiogram was ordered as part of stroke workup as well as preop assessment which is still pending for now. She is currently on aspirin 325 mg Plavix, subcutaneous heparin and normal saline at 100 mL/h patient denies any other new complaint Review of systems CONSTITUTIONAL: No fever, no malaise, no fatigue. HEENT: No recent visual problems or hearing problems. Denied any sore throat. CARDIOVASCULAR: No orthopnea, PND, no palpitations, no syncope. PULMONARY: No shortness of breath, no cough, no hemoptysis. HEMATOLOGICAL: Denies any bleeding or petechiae. GENITOURINARY: Denies any burning micturition, frequency, or urgency. MUSCULOSKELETAL/RHEUMATOLOGICAL: Denies any joint pain, swelling, or any muscle pain. ENDOCRINE: Denies any polyuria or polydipsia. Active Medications Generic Name Dose Route Start Last Admin Trade Name Freq PRN Reason Stop Dose Admin Alprazolam 0.5 mg 11/15/23 17:14 11/15/23 20:44 Alprazolam 0.5 Mg Tab PO 0.5 mg BID PRN Administration Anxiety Aspirin 325 mg 11/15/23 09:00 11/16/23 08:50 Aspirin 325 Mg Tab PO 325 mg DAILY NBA Administration Atorvastatin Calcium 40 mg 11/15/23 21:00 11/15/23 20:44 Atorvastatin 40 Mg Tab PO 40 mg HS NBA Administration Clopidogrel Bisulfate 75 mg 11/15/23 19:15 11/16/23 08:50 Clopidogrel 75 Mg Tab PO 75 mg DAILY NBA Administration Famotidine 20 mg 11/15/23 21:00 11/16/23 08:50 Famotidine 20 Mg Tab PO 20 mg Q12HR NBA Administration Heparin Sodium (Porcine) 5,000 unit 11/15/23 09:00 11/16/23 08:50 Heparin Sodium,Porcine 5,000 Unit/Ml 1 Ml Vial SQ 5,000 unit Q12HR NBA Administration Ceftriaxone Sodium 2 gm/ 50 mls @ 100 mls/hr 11/15/23 21:00 11/15/23 20:43 Sodium Chloride IVPB 100 mls/hr Q24H NBA Administration Protocol Sodium Chloride 1,000 mls @ 100 mls/hr 11/14/23 20:45 11/16/23 09:00 Saline 0.9% IV Not Given .Q10H NBA Nicotine 1 patch 11/15/23 11:15 11/16/23 08:50 Nicotine 21mg/24hr Patch TRANSDERM 1 patch DAILY NBA Administration Quetiapine Fumarate 100 mg 11/15/23 17:14 11/15/23 21:45 Quetiapine 100 Mg Tab PO 100 mg HS PRN Administration sleep Objective - Vital Signs Vital signs: Vital Signs Temp 98 F 11/16/23 08:00 Pulse 78 11/16/23 08:00 Resp 18 11/16/23 08:00 BP 142/94 11/16/23 08:00 Pulse Ox 100 11/16/23 08:00 FiO2 Intake & Output 11/15/23 11/16/23 11/16/23 18:59 06:59 18:59 Intake Total 980 Balance 980 Intake: Intake, IV Titration 500 Amount Sodium Chloride 0.9% 1, 500 000 ml @ 100 mls/hr IV . Q10H NBA Rx#:[id number] Oral 480 Other: Voiding Method Toilet Toilet Bedside Commode # Voids 1 1 - Exam GENERAL: The patient is alert and oriented x3, not in any acute distress. Well developed, well nourished. HEENT: Pupils are round and equally reacting to light. EOMI. No scleral icterus. No conjunctival pallor. Normocephalic, atraumatic. No pharyngeal erythema. No thyromegaly. CARDIOVASCULAR: S1 and S2 present. No murmurs, rubs, or gallops. PULMONARY: Chest is clear to auscultation, no wheezing , no crackles. ABDOMEN: Soft, nontender, nondistended, normoactive bowel sounds. No palpable o rganomegaly. MUSCULOSKELETAL: No joint swelling or deformity. EXTREMITIES: No cyanosis, clubbing, or pedal edema. NEUROLOGICAL: Gross neurological examination did not reveal any focal deficits. SKIN: No rashes. no petechiae. - Labs CBC & Chem 7: 11/14/23 19:00 11/14/23 19:00 Labs: Abnormal Lab Results - Last 24 Hours (Table) 11/14/23 Range/Units 18:57 Triglycerides 338.00 H (0.00-149.00) mg/dL VLDL Cholesterol, Calc 67.60 H (5.00-40.00) mg/dL Assessment and Plan Assessment: Acute stroke with right hemiparesis. Also patient has some periods of blurred vision/vision difficulty in the left eye that improved which could be related to above. Possible acute urinary tract infection Bilateral internal carotid artery stenosis Nicotine dependence Plan: Continue with aspirin 325 mg and Plavix Neurology consult Vascular surgery consult with plan for endarterectomy on this coming Sunday 11/19 Cardiology consult for preop evaluation Continue with ceftriaxone and follow-up culture results Labs and medication were reviewed.. Continue same treatment. Continue with symptomatic treatment. Resume home medication. Monitor labs and vitals. DVT and GI prophylaxis. Further recommendations as per clinical course of the patient DVT prophylaxis: Subcutaneous heparin GI Prophylaxis: Pepcid PT/OT: Pending Prognosis is guarded
[2023-11-16 13:50] VITALS: BMI 17.2
--- NOTE | 2023-11-16 16:48 | CA ---
Transthoracic Echo Report Name: Deedee Howard Age: 58 Gender: F : 1965 Exam Date: 11/16/2023 07:56 Exam Location: [facility] Ht (in): 67 Wt (lb): 110 Ordering Physician: Nadia Llanos MD Attending/Referring Phys: African History Professor Andria Ruiz RDCS Procedure CPT: Indications: CVA Cardiac Hx: COPD, HTN Technical Quality: Good Contrast 1: Agitated Saline Total Dose (mL): 9 Contrast 2: Total Dose (mL): MEASUREMENTS (Male / Female) Normal Values 2D ECHO LV Diastolic Diameter PLAX 4.1 cm 4.2 - 5.9 / 3.9 - 5.3 cm LV Systolic Diameter PLAX 2.5 cm IVS Diastolic Thickness 0.9 cm 0.6 - 1.0 / 0.6 - 0.9 cm LVPW Diastolic Thickness 0.8 cm 0.6 - 1.0 / 0.6 - 0.9 cm LV Relative Wall Thickness 0.4 RV Internal Dim ED PLAX 2.7 cm LA Systolic Diameter LX 3.0 cm 3.0 - 4.0 / 2.7 - 3.8 cm LV Diastolic Volume MOD BP 60.0 cm??? 67 - 155 / 56 - 104 cm??? LV Systolic Volume MOD BP 16.3 cm??? 22 - 58 / 19 - 49 cm??? LV Ejection Fraction MOD BP 72.9 % >= 55 % LV Cardiac Index MOD BP 1724.2 cm???/min???m??? LV Diastolic Volume MOD 4C 61.4 cm??? LV Systolic Volume MOD 4C 14.8 cm??? LV Ejection Fraction MOD 4C 75.8 % LV Cardiac Index MOD 4C 1834.6 cm???/min???m??? LV Diastolic Length 4C 6.1 cm LV Systolic Length 4C 5.0 cm LV Diastolic Volume MOD 2C 56.2 cm??? LV Systolic Volume MOD 2C 18.3 cm??? LV Ejection Fraction MOD 2C 67.4 % LV Cardiac Index MOD 2C 1491.8 cm???/min???m??? LV Diastolic Length 2C 6.5 cm LV Systolic Length 2C 5.1 cm LA Volume 34.6 cm??? 18 - 58 / 22 - 52 cm??? LA Volume Index 22.7 cm???/m??? 16 - 28 cm???/m??? M-MODE Aortic Root Diameter MM 3.3 cm MV E Point Septal Separation 0.5 cm DOPPLER AV Peak Velocity 125.5 cm/s AV Peak Gradient 6.3 mmHg MV Area PHT 3.1 cm??? Mitral E Point Velocity 75.1 cm/s Mitral A Point Velocity 66.6 cm/s Mitral E to A Ratio 1.1 MV Deceleration Time 244.2 ms TR Peak Velocity 202.0 cm/s TR Peak Gradient 16.3 mmHg Right Ventricular Systolic Press 21.3 mmHg FINDINGS Left Ventricle Left ventricular ejection fraction is estimated at 60-65% left ventricular cavity size normal. %. Left ventricular wall thickness normal. Normal left ventricular wall motion. Right Ventricle Normal right ventricular size. Right ventricular systolic pressure within normal limits. Right Atrium Normal right atrial size.Negative agitated saline bubble study for right to left shunt. Left Atrium Normal left atrial size. Mitral Valve Structurally normal mitral valve. No mitral stenosis, regurgitation or prolapse. Aortic Valve Trileaflet aortic valve. No aortic valve stenosis or regurgitation. Tricuspid Valve Structurally normal tricuspid valve. Mild tricuspid regurgitation. Pulmonic Valve Pulmonic valve not well visualized. Pericardium No pericardial effusion. Aorta Normal size aortic root and proximal ascending aorta. CONCLUSIONS Left ventricular ejection fraction is estimated at 60-65% No ovbious regional wall motion abnormality Suspicion of a small membranous VSD Anurysmal interatrial septum No signifiicant valve pathology No right to left shunt on bubble study No effusion Previewed by: Dr Jin Quintero (Electronically Signed) Final Date: 16 November 2023 16:47
--- NOTE | 2023-11-16 17:30 | P.CRDCN ---
History of Present Illness Consult date: 11/16/23 History of present illness: HISTORY OF PRESENTING ILLNESS Patient is a 58-year-old female with past medical history of COPD, emphysema large bullae in left upper lung lobe, lung nodules, prior TIA CVA smoker 1 pack/day. Patient was evaluated by PCP for ongoing symptoms of increased forgetfulness and nonspecific neurological complaints of focal weakness. She had an outpatient MRI which showed concerns of embolic stroke involving the left frontoparietal cerebrum. She had a CTA neck which showed 70% right-sided disease, 80% left internal carotid stenosis. She has been planned for possible left carotid endarterectomy. Cardiology was consulted for perioperative risk assessment. Patient reports that she would experience on and off substernal chest pressure-like symptoms when she would exert. Lately she is not having any chest pain shortness of breath at rest. She denies any lightheadedness dizziness. She reports on and off palpitations. REVIEW OF SYSTEMS 14 point review of system is negative except what is mentioned above in HPI. PHYSICAL EXAMINATION Vital signs reviewed. Head: Normocephalic. Eyes: Sclerae nonicteric. Neck: Brisk carotid upstroke, no jugular venous distention. Lungs: Clear to auscultation. Heart: Regular rate and rhythm, S1-S2, no S3, no murmur or rub. Abdomen: Soft nontender, positive bowel sounds. Extremities: No edema, intact distal pulses. Neuro: Alert, oritented, no focal deficits. Detailed neuro exam was not performed. ASSESSMENT Subacute CVA, likely embolic involving left frontoparietal lobe Bilateral ICA disease, 80% left side, 70% right side 1 pack tobacco smoker COPD with emphysema Left upper lung lobe bullae with lung nodule Stable anginal symptoms with chest pain on exertion PLAN Echocardiogram showed preserved LV size and systolic function. Aneurysmal interatrial septum. Mildly increased left atrial size. Obtain Lexiscan nuclear stress test. Patient cannot walk on treadmill because of weakness in legs from stroke Continue aspirin and atorvastatin Continue telemetry monitoring to make sure that there is no underlying atrial fibrillation. Patient would benefit from a 30-day event monitor at discharge. She would benefit from an outpatient JONN Jin Quintero MD, FACC, RPVI Thank you for allowing [facility] to participate in this patient's care. Feel free to reach out in case of any followup questions. Past Medical History Past Medical History: COPD, Hyperlipidemia, Osteoarthritis (OA), Pneumonia Additional Past Medical History / Comment(s): chronic low back pain, spinal stenosis, DDD, spinal bifida, chronic constipation, emphysema, pneumonia 05/2021, hiatal hernia, fell 09/03/21 and fx left wrist-has splint on, blockages in carotid arteries History of Any Multi-Drug Resistant Organisms: None Reported Past Surgical History: Breast Surgery, Cholecystectomy, Tubal Ligation Additional Past Surgical History / Comment(s): Lipoma removed from below L breast, rhinoplasty. Past Anesthesia/Blood Transfusion Reactions: No Reported Reaction Additional Past Anesthesia/Blood Transfusion Reaction / Comment(s): "severe needle phobia"- small veins, diff IV starts Past Psychological History: Anxiety, Bipolar, Depression, Panic Disorder Additional Psychological History / Comment(s): . Smoking Status: Current every day smoker Past Alcohol Use History: None Reported Additional Past Alcohol Use History / Comment(s): Pt started smoking in 1976, 1 ppd smoker. Past Drug Use History: Marijuana - Past Family History Mother Family Medical History: Respiratory Disorder Additional Family Medical History / Comment(s): Mother is from [facility] onary fibrosis. Father Family Medical History: Cancer Additional Family Medical History / Comment(s): lung cancer. Medications and Allergies Home Medications Medication Instructions Recorded Confirmed Type ALPRAZolam [Xanax] 0.5 mg PO BID PRN 11/07/23 11/14/23 History QUEtiapine [SEROquel] 100 mg PO HS PRN 11/07/23 11/14/23 History Aspirin EC [Ecotrin Low Dose] 81 mg PO DAILY 11/14/23 11/14/23 History Allergies Allergy/AdvReac Type Severity Reaction Status Date / Time codeine Allergy Swelling Verified 11/14/23 19:49 lurasidone [From Latuda] Allergy Vomiting Verified 11/14/23 19:49 Penicillins Allergy Swelling Verified 11/14/23 19:49 Physical Exam Vitals: Vital Signs Temp Pulse Resp BP Pulse Ox 11/16/23 16:00 98.2 F 88 8 L 139/83 98 11/16/23 08:00 98 F 78 18 142/94 100 11/16/23 04:00 97.9 F 66 16 135/67 99 11/16/23 03:22 65 11/15/23 23:15 98.2 F 65 16 144/75 100 11/15/23 21:00 73 11/15/23 20:00 98.3 F 73 20 134/75 100 Intake and Output 11/16/23 11/16/23 11/16/23 06:59 14:59 22:59 Intake Total 240 Balance 240 Intake: Oral 240 Other: Voiding Method Toilet Bedside Commode # Voids 1 Weight 49.895 kg Results 11/14/23 19:00 11/14/23 19:00 Lipids 11/14/23 Range/Units 18:57 Triglycerides 338.00 H (0.00-149.00) mg/dL Cholesterol 189.00 (0.00-200.00) mg/dL HDL Cholesterol 40.50 (40.00-60.00) mg/dL Cholesterol/HDL Ratio 4.67 Ratio Current Medications Generic Name Dose Route Start Last Admin Trade Name Freq PRN Reason Stop Dose Admin Alprazolam 0.5 mg 11/15/23 17:14 11/15/23 20:44 Alprazolam 0.5 Mg Tab PO 0.5 mg BID PRN Administration Anxiety Aspirin 325 mg 11/15/23 09:00 11/16/23 08:50 Aspirin 325 Mg Tab PO 325 mg DAILY NBA Administration Atorvastatin Calcium 40 mg 11/15/23 21:00 11/15/23 20:44 Atorvastatin 40 Mg Tab PO 40 mg HS NBA Administration Clopidogrel Bisulfate 75 mg 11/15/23 19:15 11/16/23 08:50 Clopidogrel 75 Mg Tab PO 75 mg DAILY NBA Administration Famotidine 20 mg 11/15/23 21:00 11/16/23 08:50 Famotidine 20 Mg Tab PO 20 mg Q12HR NBA Administration Heparin Sodium (Porcine) 5,000 unit 11/15/23 09:00 11/16/23 08:50 Heparin Sodium,Porcine 5,000 Unit/Ml 1 Ml Vial SQ 5,000 unit Q12HR NBA Administration Ceftriaxone Sodium 2 gm/ 50 mls @ 100 mls/hr 11/15/23 21:00 11/15/23 20:43 Sodium Chloride IVPB 100 mls/hr Q24H NBA Administration Protocol Sodium Chloride 1,000 mls @ 100 mls/hr 11/14/23 20:45 11/16/23 09:00 Saline 0.9% IV Not Given .Q10H NBA Nicotine 1 patch 11/15/23 11:15 11/16/23 08:50 Nicotine 21mg/24hr Patch TRANSDERM 1 patch DAILY NBA Administration Quetiapine Fumarate 100 mg 11/15/23 17:14 11/15/23 21:45 Quetiapine 100 Mg Tab PO 100 mg HS PRN Administration sleep Intake and Output 11/16/23 11/16/23 11/16/23 06:59 14:59 22:59 Intake Total 240 Balance 240 Intake: Oral 240 Other: Voiding Method Toilet Bedside Commode # Voids 1 Weight 49.895 kg Patient Weight 11/17/23 07:59 Weight 49.895 kg 11/14/23 19:00 11/14/23 19:00
--- NOTE | 2023-11-17 11:54 | P.PN ---
Subjective This is a pleasant 75 years old female with past medical history of multiple medical problems including CVA/TIA, dementia, diabetes mellitus, hypertension, hyperlipidemia, coronary artery disease, heart failure, syncope, right carotid artery stenosis and pulmonary hypertension and UTI with ESBL bacteria. She presents because of dyspnea per records. Patient is documented to have 2 L of oxygen at home at baseline. Patient currently is on BiPAP and very sleepy and cannot provide information. It was obtained from medical records and staff at bedside Patient is also obese with decreased air entry on both sides. Later on patient workup and she told me she came because of dyspnea. However she denies chest pain. She has headache but no dizziness. No weakness in arms and legs and she can move them both symmetrically. No diarrhea or abdominal pain or vomiting. No urinary complaint. She told me she quit smoking about 3 to 4 years ago, History still limited by the patient condition. On admission patient was hypoxic and she was placed on BiPAP also she was tachypneic RR 30/min this morning patient spiked a fever of 101. Patient INR is 0.8 and labs show a leukocytosis of 13,000, basic metabolic panel and liver enzymes were unremarkable proBNP is evaded 3890. Troponin is elevated 0.06. Chest x-ray are reviewed showing bilateral fluffy infiltrates more on the lower and middle zone. Most likely suspicious for fluid overload but cannot exclude pneumonia per radiologist. EKG sinus rhythm at 81 first first-degree heart block with no significant ST-T changes Echocardiogram done on 01/2023 showing preserved ejection fraction 55 to 60% with mild to moderate mitral regurgitation Patient was started on IV Lasix 40 mg every 8 hours. 11/16/2023 Patient presents with left CVA and right hemiparesis for more than a week and thought to be secondary to severe left internal carotid artery stenosis at 80% MRI of the brain showing multiple foci of infarct involving the left frontal lobe which is thought of embolic phenomenon. Therefore vascular surgery are planning to for her to undergo endarterectomy of her left internal carotid artery on this coming Sunday 11/19, this was explained for the patient in details and she looks agreeable to proceed with this plan As part of evaluation she will need preop assessment. Patient was found to be at some risk from this procedure. Cardiology were consulted. Echocardiogram was ordered as part of stroke workup as well as preop assessment which is still pending for now. She is currently on aspirin 325 mg Plavix, subcutaneous heparin and normal saline at 100 mL/h patient denies any other new complaint 11/17/2023 Patient is still with mild weakness on the right side. No more blurred vision or vision problems. No headache or dizziness. We are still in the process of evaluating the patient preoperatively. Cardiology consult was obtained. Echocardiogram showing preserved ejection fraction Stress test is ordered for tomorrow. Also brokerage office manager recommended event monitor 30 days upon discharge and JONN as an outpatient may be helpful for the patient In the meantime she remains on aspirin and Plavix She remains on normal saline at 50 mL/h Patient denies any other new complaints. Will order labs tomorrow Review of systems CONSTITUTIONAL: No fever, no malaise, no fatigue. HEENT: No recent visual problems or hearing problems. Denied any sore throat. CARDIOVASCULAR: No orthopnea, PND, no palpitations, no syncope. PULMONARY: No shortness of breath, no cough, no hemoptysis. HEMATOLOGICAL: Denies any bleeding or petechiae. GENITOURINARY: Denies any burning micturition, frequency, or urgency. MUSCULOSKELETAL/RHEUMATOLOGICAL: Denies any joint pain, swelling, or any muscle pain. ENDOCRINE: Denies any polyuria or polydipsia. Active Medications Generic Name Dose Route Start Last Admin Trade Name Freq PRN Reason Stop Dose Admin Alprazolam 0.5 mg 11/15/23 17:14 11/16/23 21:58 Alprazolam 0.5 Mg Tab PO 0.5 mg BID PRN Administration Anxiety Aspirin 325 mg 11/15/23 09:00 11/17/23 08:13 Aspirin 325 Mg Tab PO 325 mg DAILY NBA Administration Atorvastatin Calcium 40 mg 11/15/23 21:00 11/16/23 21:58 Atorvastatin 40 Mg Tab PO 40 mg HS NBA Administration Clopidogrel Bisulfate 75 mg 11/15/23 19:15 11/17/23 08:13 Clopidogrel 75 Mg Tab PO 75 mg DAILY NBA Administration Famotidine 20 mg 11/15/23 21:00 11/17/23 08:13 Famotidine 20 Mg Tab PO 20 mg Q12HR NBA Administration Heparin Sodium (Porcine) 5,000 unit 11/15/23 09:00 11/17/23 08:13 Heparin Sodium,Porcine 5,000 Unit/Ml 1 Ml Vial SQ Not Given Q12HR NBA Ceftriaxone Sodium 2 gm/ 50 mls @ 100 mls/hr 11/15/23 21:00 11/16/23 21:58 Sodium Chloride IVPB 100 mls/hr Q24H NBA Administration Protocol Sodium Chloride 1,000 mls @ 100 mls/hr 11/14/23 20:45 11/17/23 08:18 Saline 0.9% IV Not Given .Q10H NBA Nicotine 1 patch 11/15/23 11:15 11/17/23 08:13 Nicotine 21mg/24hr Patch TRANSDERM 1 patch DAILY NBA Administration Quetiapine Fumarate 100 mg 11/15/23 17:14 11/16/23 22:11 Quetiapine 100 Mg Tab PO 100 mg HS PRN Administration sleep Objective - Vital Signs Vital signs: Vital Signs Temp 97.8 F 11/17/23 08:00 Pulse 74 11/17/23 08:00 Resp 18 11/17/23 08:00 BP 128/74 11/17/23 08:00 Pulse Ox 98 11/17/23 08:00 FiO2 Intake & Output 11/16/23 11/17/23 11/17/23 17:59 06:59 18:59 Intake Total 240 Balance 240 Weight Intake: Oral 240 Other: Voiding Method # Voids - Exam GENERAL: The patient is alert and oriented x3, not in any acute distress. Well developed, well nourished. HEENT: Pupils are round and equally reacting to light. EOMI. No scleral icterus. No conjunctival pallor. Normocephalic, atraumatic. No pharyngeal erythema. No t hyromegaly. CARDIOVASCULAR: S1 and S2 present. No murmurs, rubs, or gallops. PULMONARY: Chest is clear to auscultation, no wheezing , no crackles. ABDOMEN: Soft, nontender, nondistended, normoactive bowel sounds. No palpable organomegaly. MUSCULOSKELETAL: No joint swelling or deformity. EXTREMITIES: No cyanosis, clubbing, or pedal edema. NEUROLOGICAL: Gross neurological examination did not reveal any focal deficits. SKIN: No rashes. no petechiae. - Labs CBC & Chem 7: 11/14/23 19:00 11/14/23 19:00 Labs: Abnormal Lab Results - Last 24 Hours (Table) 11/14/23 Range/Units 18:57 Triglycerides 338.00 H (0.00-149.00) mg/dL VLDL Cholesterol, Calc 67.60 H (5.00-40.00) mg/dL Assessment and Plan Assessment: Acute stroke with right hemiparesis. Also patient has some periods of blurred vision/vision difficulty in the left eye that improved which could be related to above. Possible acute urinary tract infection Bilateral internal carotid artery stenosis Nicotine dependence Plan: Continue with aspirin 325 mg and Plavix Neurology consult Vascular surgery consult with plan for endarterectomy on this coming Sunday 11/19 Cardiology consult for preop evaluation Echocardiogram was reviewed. Patient risk assessment to be completed after his stress test on 11/17. If it is unremarkable for reversible ischemia would be no contraindication to proceed with endarterectomy of the left internal carotid artery. Continue with ceftriaxone and follow-up culture results Labs and medication were reviewed.. Continue same treatment. Continue with symptomatic treatment. Resume home medication. Monitor labs and vitals. DVT and GI prophylaxis. Further recommendations as per clinical course of the patient DVT prophylaxis: Subcutaneous heparin GI Prophylaxis: Pepcid PT/OT: Pending Prognosis is guarded Discussed with the staff
--- NOTE | 2023-11-17 12:53 | P.PN ---
Subjective Progress Note Date: 11/17/23 Patient seen and examined. Mildly confused and she just woke up. States she had a weird dream and it was confusing her to her location but she is aware she is in the hospital. No new complaints or concerns. On her bedside table, 2 large sodas and a bucket of sugar Objective - Vital Signs Vital signs: Vital Signs Temp 97.8 F 11/17/23 12:00 Pulse 71 11/17/23 12:00 Resp 16 11/17/23 12:00 BP 119/63 11/17/23 12:00 Pulse Ox 97 11/17/23 12:00 FiO2 Intake & Output 11/16/23 11/17/23 11/17/23 17:59 06:59 18:59 Intake Total 240 Balance 240 Weight Intake: Oral 240 Other: Voiding Method # Voids - Exam No acute distress, heart appears regular. Lungs are clear. Abdomen is soft. Mild upper and lower weakness as previous. - Labs CBC & Chem 7: 11/14/23 19:00 11/14/23 19:00 Assessment and Plan Assessment: 1. Hemodynamically severe left ICA stenosis, symptomatic 2. Acute ischemic infarcts left frontal lobe 3. Right-sided weakness 4. Left visual disturbances 5. Nicotine dependence 6. COPD 7. Emphysema Plan: Continue medications as ordered. Again recommend nicotine cessation. Plan for carotid endarterectomy tentatively planned for 313. Patient undergo cardiac stress test tomorrow
[2023-11-17 17:43] LABS: Appearance,Urine Clear (Clear); Bilirubin,Urine Negative (Negative); Blood,Urine Negative (Negative); Color,Urine Colorless; Glucose,Urine (UA) Negative (Negative); Ketones,Urine Negative (Negative); Leukocyte Esterase,Urine Negative (Negative); Nitrite,Urine Negative (Negative); Protein,Urine Negative (Negative); Specific Gravity,Urine 1.011 (1.001-1.035); Urobilinogen,Urine <2.0 mg/dL (<2.0)
--- NOTE | 2023-11-17 18:05 | P.PN ---
Subjective Progress Note Date: 11/17/23 HISTORY OF PRESENTING ILLNESS Patient is a 58-year-old female with past medical history of COPD, emphysema large bullae in left upper lung lobe, lung nodules, prior TIA CVA smoker 1 pack/day. Patient was evaluated by PCP for ongoing symptoms of increased forgetfulness and nonspecific neurological complaints of focal weakness. She had an outpatient MRI which showed concerns of embolic stroke involving the left frontoparietal cerebrum. She had a CTA neck which showed 70% right-sided disease, 80% left internal carotid stenosis. She has been planned for possible left carotid endarterectomy. Cardiology was consulted for perioperative risk assessment. Patient reports that she would experience on and off substernal chest pressure- like symptoms when she would exert. Lately she is not having any chest pain shortness of breath at rest. She denies any lightheadedness dizziness. She reports on and off palpitations. Progress note 11/17/2023 No further worsening of neurological symptoms. Hemodynamically stable. No evidence of atrial fibrillation on last 24 hours of telemetry monitoring PHYSICAL EXAMINATION Vital signs reviewed. Head: Normocephalic. Eyes: Sclerae nonicteric. Neck: Brisk carotid upstroke, no jugular venous distention. Lungs: Clear to auscultation. Heart: Regular rate and rhythm, S1-S2, no S3, no murmur or rub. Abdomen: Soft nontender, positive bowel sounds. Extremities: No edema, intact distal pulses. Neuro: Alert, oritented, no focal deficits. Detailed neuro exam was not performed. ASSESSMENT Subacute CVA, likely embolic involving left frontoparietal lobe Bilateral ICA disease, 80% left side, 70% right side 1 pack tobacco smoker COPD with emphysema Left upper lung lobe bullae with lung nodule Stable anginal symptoms with chest pain on exertion PLAN Echocardiogram showed preserved LV size and systolic function. Aneurysmal interatrial septum. Mildly increased left atrial size. Obtain Lexiscan nuclear stress test. Patient cannot walk on treadmill because of weakness in legs from stroke Continue aspirin and atorvastatin Continue telemetry monitoring to make sure that there is no underlying atrial fibrillation. Patient would benefit from a 30-day event monitor at discharge. She would benefit from an outpatient JONN Objective - Vital Signs Vital signs: Vital Signs Temp 97.8 F 11/17/23 12:00 Pulse 71 11/17/23 12:00 Resp 16 11/17/23 12:00 BP 119/63 11/17/23 12:00 Pulse Ox 97 11/17/23 12:00 FiO2 Intake & Output 11/16/23 11/17/23 11/17/23 17:59 06:59 18:59 Intake Total 480 Balance 480 Weight Intake: Oral 480 Other: Voiding Method # Voids - Labs CBC & Chem 7: 11/14/23 19:00 11/14/23 19:00
[2023-11-18] MEDS ORDERED: CAFFEINE CITRATE 60 MG/3 ML VIAL IV PRN (07:00)
[2023-11-18] MEDS ORDERED: REGADENOSON 0.4 MG/5 ML SYRINGE IV PRN (07:00)
[2023-11-18] MEDS ORDERED: AMINOPHYLLINE 500 MG/20 ML VIAL IV PRN (07:00)
--- NOTE | 2023-11-18 11:10 | P.PN ---
Subjective Progress Note Date: 11/18/23 Patient went down for Miladis scan stress test today. No acute changes and no new focal deficits. Objective - Vital Signs Vital signs: Vital Signs Temp 98.1 F 11/18/23 08:30 Pulse 70 11/18/23 08:30 Resp 16 11/18/23 08:30 BP 153/66 11/18/23 08:30 Pulse Ox 98 11/18/23 08:30 FiO2 Intake & Output 11/17/23 11/18/23 11/18/23 18:59 06:59 18:59 Intake Total 480 620 Output Total 350 Balance 480 270 Intake: Intake, IV Titration 500 Amount Sodium Chloride 0.9% 1, 500 000 ml @ 100 mls/hr IV . Q10H NBA Rx#:[id number] Oral 480 120 Output: Urine 350 Other: Voiding Method Toilet # Voids 3 - Exam General appearance: The patient is alert, oriented, appears in no acute distress. HET: Head is normocephalic and atraumatic. Pupils are equal and reactive. Neck: Supple. Abdomen: Soft, nontender, nondistended. Extremities: Normal skin color and turgor. Neurological: Right upper and lower extremity weakness. No other focal deficits noted. - Labs CBC & Chem 7: 11/14/23 19:00 11/14/23 19:00 Assessment and Plan Assessment: 1. Hemodynamically severe left ICA stenosis, symptomatic 2. Acute ischemic infarcts left frontal lobe 3. Right-sided weakness 4. Left visual disturbances 5. Nicotine dependence 6. COPD 7. Emphysema Plan: 1. Consult to PT/OT 2. Continue aspirin, atorvastatin, and Plavix. 3. Recommend nicotine cessation 4. Patient scheduled for Lexiscan stress test today 5. Cardiology consulted, cardiac clearance for left carotid endarterectomy 6. Continue workup and recommendations from neurology 7. Plan for carotid endarterectomy tentatively scheduled for 11/20/2023 Thank you for this consultation, we will continue to follow. The impression and plan of care has been dictated as directed. Dr. Bradshaw I performed a history and examination of this patient, discussed the same with the dictator. I agree with the dictator's note ,documented as a scribe. Any additional findings or plans will be noted.
--- NOTE | 2023-11-18 11:43 | CA ---
Lexiscan Nuclear Stress Test Report Name: Deedee Howard Exam Date: 11/18/2023 09:58 Exam Location: [place] Stress Ht (in): 67 Wt (lb): 110 BSA: 1.57 Ordering Phys: Jin Quintero MD Referring Phys: CATALINO, Technologist: Jesús Nam Age: 58 Gender: F : 1965 Procedure CPT: Indications: Reflex order-Stress test ICD-10 Codes: Patient History: PALPITATIONS, ANGINA, HTN, PRIOR CVA, ELEVATED CHOLESTEROL LEVELS, CURRENT SMOKER, COPD Medications: Meds past 24 hrs: Pretest Chest Pain: STRESS TEST Lexiscan Protocol Exercise Duration (min:sec): 02:[address] Depressions (mm): Angina Score: Perrin Score: Resting HR (bpm): 75 Peak HR (bpm): 96 Resting BP (mmHg): 140 / 86 Peak BP (mmHg): 148 / 84 MPHR: 164 Target HR: 139 % MPHR: 59 METS: 1.0 Total Dose: Peak Dose: Atropine: Double Product: 61355 BP Response: Stress Termination: INFUSION COMPLETE Stress Symptoms: NO SYMPTOMS Stress Summary: ECG ANALYSIS Resting ECG: Stress ECG: CONCLUSIONS Nondiagnostic stress test Please follow-up on the Cardiolite portion Dr. Mann Cortes MD (Electronically Signed) Final Date: 18 November 2023 11:42
[2023-11-18] MEDS ORDERED: polyethylene glycoL 3350 17 GM POWD.PACK PO PRN (13:55)
--- NOTE | 2023-11-18 15:18 | P.PN ---
Subjective Progress Note Date: 11/18/23 HISTORY OF PRESENTING ILLNESS Patient is a 58-year-old female with past medical history of COPD, emphysema large bullae in left upper lung lobe, lung nodules, prior TIA CVA smoker 1 pack/day. Patient was evaluated by PCP for ongoing symptoms of increased forgetfulness and nonspecific neurological complaints of focal weakness. She had an outpatient MRI which showed concerns of embolic stroke involving the left frontoparietal cerebrum. She had a CTA neck which showed 70% right-sided disease, 80% left internal carotid stenosis. She has been planned for possible left carotid endarterectomy. Cardiology was consulted for perioperative risk assessment. Patient reports that she would experience on and off substernal chest pressure- like symptoms when she would exert. Lately she is not having any chest pain shortness of breath at rest. She denies any lightheadedness dizziness. She reports on and off palpitations. Progress note 11/17/2023 No further worsening of neurological symptoms. Hemodynamically stable. No evidence of atrial fibrillation on last 24 hours of telemetry monitoring Echocardiogram showed preserved LV size and systolic function. Aneurysmal interatrial septum. Mildly increased left atrial size. 11/17 Patient states that she has some shortness of breath. She continues to be a smoker. She underwent Lexiscan stress test today and report is pending. She states she is scheduled for carotid surgery on Saturday. Blood pressure 153/66, heart rate 70, pulse ox 90% on room air. PHYSICAL EXAMINATION Vital signs reviewed. Head: Normocephalic. Eyes: Sclerae nonicteric. Neck: Brisk carotid upstroke, no jugular venous distention. Lungs: Clear to auscultation. Heart: Regular rate and rhythm, S1-S2, no S3, no murmur or rub. Abdomen: Soft nontender, positive bowel sounds. Extremities: No edema, intact distal pulses. Neuro: Alert, oritented, no focal deficits. Detailed neuro exam was not performed. ASSESSMENT Subacute CVA, likely embolic involving left frontoparietal lobe Bilateral ICA disease, 80% left side, 70% right side 1 pack tobacco smoker COPD with emphysema Left upper lung lobe bullae with lung nodule Stable anginal symptoms with chest pain on exertion PLAN Obtain Lexiscan nuclear stress test result Continue aspirin and atorvastatin Continue telemetry monitoring to make sure that there is no underlying atrial fibrillation. Patient would benefit from a 30-day event monitor at discharge. She would benefit from an outpatient JONN Nurse practitioner note has been reviewed, I agree with documented findings and plan of care. Patient was seen and examined. Objective - Vital Signs Vital signs: Vital Signs Temp 98.1 F 11/18/23 08:30 Pulse 66 11/18/23 08:30 Resp 16 11/18/23 08:30 BP 153/66 11/18/23 08:30 Pulse Ox 98 11/18/23 08:30 FiO2 Intake & Output 11/17/23 11/18/23 11/18/23 18:59 06:59 18:59 Intake Total 480 620 Output Total 350 Balance 480 270 Intake: Intake, IV Titration 500 Amount Sodium Chloride 0.9% 1, 500 000 ml @ 100 mls/hr IV . Q10H [facility] Rx#:[id number] Oral 480 120 Output: Urine 350 Other: Voiding Method Toilet Toilet # Voids 3 - Labs CBC & Chem 7: 11/14/23 19:00 11/14/23 19:00
[2023-11-18] MEDS: SENNOSIDES 8.6 MG TAB PO SCH (16:46)
--- NOTE | 2023-11-18 17:03 | NM ---
EXAMINATION TYPE: NM stress lexiscan cardiolite DATE OF EXAM: 11/18/2023 COMPARISON: NONE CLINICAL INDICATION: Female, 58 years old with history of Preop clearance; TECHNIQUE: After the intravenous administration of 10.2 mCi Tc 99m Sestamibi - Cardiolite resting SP ECT images acquired 55 minutes post injection. The patient received 0.4mg Lexiscan, 24.6 mCi Tc 99m Sestamibi - Stress images obtained 310 minutes p ost injection FINDINGS: Review of stress and rest SPECT images demonstrates no distinct perfusion abnormality. Gated analysi s shows normal wall motion with an estimated left ventricular ejection fraction of 72 %. TID is calc ulated normal at 0.86. IMPRESSION: No scintigraphic evidence for reversible ischemia.
[2023-11-18] MEDS: METOPROLOL TARTRATE 25 MG TAB PO SCH (20:57)
--- NOTE | 2023-11-19 04:23 | P.PN ---
Subjective Progress Note Date: 11/18/23 This is a pleasant 75 years old female with past medical history of multiple medical problems including CVA/TIA, dementia, diabetes mellitus, hypertension, hyperlipidemia, coronary artery disease, heart failure, syncope, right carotid artery stenosis and pulmonary hypertension and UTI with ESBL bacteria. She presents because of dyspnea per records. Patient is documented to have 2 L of oxygen at home at baseline. Patient currently is on BiPAP and very sleepy and cannot provide information. It was obtained from medical records and staff at bedside Patient is also obese with decreased air entry on both sides. Later on patient workup and she told me she came because of dyspnea. However she denies chest pain. She has headache but no dizziness. No weakness in arms and legs and she can move them both symmetrically. No diarrhea or abdominal pain or vomiting. No urinary complaint. She told me she quit smoking about 3 to 4 years ago, History still limited by the patient condition. On admission patient was hypoxic and she was placed on BiPAP also she was tachypneic RR 30/min this morning patient spiked a fever of 101. Patient INR is 0.8 and labs show a leukocytosis of 13,000, basic metabolic panel and liver enzymes were unremarkable proBNP is evaded 3890. Troponin is elevated 0.06. Chest x-ray are reviewed showing bilateral fluffy infiltrates more on the lower and middle zone. Most likely suspicious for fluid overload but cannot exclude pneumonia per radiologist. EKG sinus rhythm at 81 first first-degree heart block with no significant ST-T changes Echocardiogram done on 01/2023 showing preserved ejection fraction 55 to 60% with mild to moderate mitral regurgitation Patient was started on IV Lasix 40 mg every 8 hours. 11/16/2023 Patient presents with left CVA and right hemiparesis for more than a week and thought to be secondary to severe left internal carotid artery stenosis at 80% MRI of the brain showing multiple foci of infarct involving the left frontal lobe which is thought of embolic phenomenon. Therefore vascular surgery are planning to for her to undergo endarterectomy of her left internal carotid artery on this coming Sunday 11/19, this was explained for the patient in details and she looks agreeable to proceed with this plan As part of evaluation she will need preop assessment. Patient was found to be at some risk from this procedure. Cardiology were consulted. Echocardiogram was ordered as part of stroke workup as well as preop assessment which is still pending for now. She is currently on aspirin 325 mg Plavix, subcutaneous heparin and normal saline at 100 mL/h patient denies any other new complaint 11/17/2023 Patient is still with mild weakness on the right side. No more blurred vision or vision problems. No headache or dizziness. We are still in the process of evaluating the patient preoperatively. Cardiology consult was obtained. Echocardiogram showing preserved ejection fraction Stress test is ordered for tomorrow. Also pipeman recommended event monitor 30 days upon discharge and JONN as an outpatient may be helpful for the patient In the meantime she remains on aspirin and Plavix She remains on normal saline at 50 mL/h Patient denies any other new complaints. Will order labs tomorrow 11/18/2023 Patient is seen and evaluated in follow-up today being followed by cardiology along with vascular surgery. Patient scheduled to undergo stress test and is currently NPO. Neurology also following undergoing workup for acute CVA. Patient with left internal carotid artery stenosis scheduled for carotid endarterectomy on 11/20/2023. Patient is afebrile with no reported chest pain or shortness of breath. No reported nausea or vomiting and diet will be resumed after stress test. Review of systems CONSTITUTIONAL: No fever, no malaise, no fatigue. HEENT: No recent visual problems or hearing problems. Denied any sore throat. CARDIOVASCULAR: No orthopnea, PND, no palpitations, no syncope. PULMONARY: No shortness of breath, no cough, no hemoptysis. HEMATOLOGICAL: Denies any bleeding or petechiae. GENITOURINARY: Denies any burning micturition, frequency, or urgency. MUSCULOSKELETAL/RHEUMATOLOGICAL: Denies any joint pain, swelling, or any muscle pain. ENDOCRINE: Denies any polyuria or polydipsia. Physical exam: This is a 58-year-old female who is awake, alert and oriented x 3, well- developed, well-nourished, thin built, appears older than stated age GENERAL: The patient is alert and oriented x3, vital signs are stable. HEENT: Pupils are round and equally reacting to light. EOMI. No scleral icterus. No conjunctival pallor. Normocephalic, atraumatic. No pharyngeal erythema. No thyromegaly. CARDIOVASCULAR: S1 and S2 present. No murmurs, rubs, or gallops. PULMONARY: Chest is clear to auscultation, no wheezing , no crackles. ABDOMEN: Soft, nontender, nondistended, normoactive bowel sounds. No palpable organomegaly. MUSCULOSKELETAL: No joint swelling or deformity. EXTREMITIES: No cyanosis, clubbing, or pedal edema. NEUROLOGICAL: Gross neurological examination did not reveal any focal deficits. SKIN: No rashes. no petechiae. Assessment: Acute stroke with right hemiparesis. blurred vision/vision difficulty in the left eye that improved which could be related to above. Possible acute urinary tract infection, present on admission Bilateral internal carotid artery stenosis, tentatively scheduled for carotid endarterectomy of the left on 11/20/2023 with vascular surgery Continued ongoing nicotine dependence GI prophylaxis DVT prophylaxis Full code Plan: Continue with current medications including aspirin, statin, Plavix Vascular surgery consult with plan for endarterectomy on this coming Sunday 11/19 Cardiology consulted for presurgical clearance for tentative endarterectomy. Patient underwent stress test today with no evidence of reversible ischemia Continue with ceftriaxone for now and follow-up culture results, currently are pending PT/OT to evaluate Will follow-up with repeat labs Encouraged increase activity as tolerated The impression and plan of care has been dictated by Lisbeth Nicholson, Nurse Practitioner as directed. Dr. Nelson MD I have performed a history and examination and MDM of this patient, discussed the same with the dictator, and agree with the dictator's assessment and plan as written ,documented as a scribe. Based on total visit time, I have performed more than 50% of the visit. Objective - Vital Signs Vital signs: Vital Signs Temp 98.1 F 11/18/23 08:30 Pulse 70 11/18/23 08:30 Resp 16 11/18/23 08:30 BP 153/66 11/18/23 08:30 Pulse Ox 98 11/18/23 08:30 FiO2 Intake & Output 11/17/23 11/18/23 11/18/23 18:59 06:59 18:59 Intake Total 480 620 Output Total 350 Balance 480 270 Intake: Intake, IV Titration 500 Amount Sodium Chloride 0.9% 1, 500 000 ml @ 100 mls/hr IV . Q10H NBA Rx#:[id number] Oral 480 120 Output: Urine 350 Other: Voiding Method Toilet # Voids 3 - Labs CBC & Chem 7: 11/14/23 19:00 11/14/23 19:00
[2023-11-19 09:17] LABS: Basophils % (A) 1 %; Eosinophils # (A) 0.1 k/uL (0-0.7); Eosinophils % (A) 1 %; HCT 43.7 % (34.0-46.0); HGB 14.6 gm/dL (11.4-16.0); Lymphocytes # (A) 2.9 k/uL (1.0-4.8); Lymphocytes % (A) 37 %; MCH 30.8 pg (25.0-35.0); MCHC 33.5 g/dL (31.0-37.0); Mean Platelet Volume 7.3; Monocytes # (A) 0.5 k/uL (0-1.0); Monocytes % (A) 7 %; Neutrophils # (A) 4.1 k/uL (1.3-7.7); Neutrophils % (A) 53 %; Platelet Count 298 k/uL (150-450); RBC 4.75 m/uL (3.80-5.40); RDW 12.7 % (11.5-15.5); WBC 7.9 k/uL (3.8-10.6)
[2023-11-19 09:32] LABS: African American GFR (CKD) 71 (>60 ml/min/1.73 sqM); Anion Gap 8 mmol/L; Blood Urea Nitrogen 15 mg/dL (7-17); Calcium 9.8 mg/dL (8.4-10.2); Carbon Dioxide 26 mmol/L (22-30); Chloride 107 mmol/L (98-107); Glucose 103 mg/dL (74-99); Magnesium 2.1 mg/dL (1.6-2.3); Non-African American GFR(CKD) 62 (>60 ml/min/1.73 sqM); Potassium 4.5 mmol/L (3.5-5.1); Sodium 141 mmol/L (137-145)
[2023-11-19] MEDS: ASPIRIN 81 MG PO SCH (09:49)
--- NOTE | 2023-11-19 09:54 | P.PN ---
Subjective Progress Note Date: 11/19/23 Patient seen and examined today as a follow-up. No acute changes through the night. No new focal deficits. Plan is for left carotid endarterectomy tomorrow. Patient underwent stress test yesterday which reported no scientific evidence for reversible ischemia. Awaiting recommendations from cardiology. Objective - Vital Signs Vital signs: Vital Signs Temp 98.2 F 11/19/23 08:00 Pulse 76 11/19/23 08:00 Resp 16 11/19/23 08:00 BP 111/65 11/19/23 08:00 Pulse Ox 97 11/19/23 08:00 FiO2 Intake & Output 11/18/23 11/19/23 11/19/23 18:59 06:59 18:59 Intake Total 240 Balance 240 Intake: Oral 240 Other: Voiding Method Toilet Toilet # Voids 3 - Exam General appearance: The patient is alert, oriented, appears in no acute distress. HET: Head is normocephalic and atraumatic. Pupils are equal and reactive. Neck: Supple. Abdomen: Soft, nontender, nondistended. Extremities: Normal skin color and turgor. Neurological: Right upper and lower extremity weakness. No other focal deficits noted. - Labs CBC & Chem 7: 11/19/23 08:47 11/19/23 08:47 Labs: Abnormal Lab Results - Last 24 Hours (Table) 11/19/23 Range/Units 08:47 Glucose 103 H (74-99) mg/dL Assessment and Plan Assessment: 1. Hemodynamically severe left ICA stenosis, symptomatic 2. Acute ischemic infarcts left frontal lobe 3. Right-sided weakness 4. Left visual disturbances 5. Nicotine dependence 6. COPD 7. Emphysema Plan: 1. Consult to PT/OT 2. Continue aspirin, atorvastatin, and Plavix. Hold Plavix day of surgery 3. Recommend nicotine cessation 4. Patient is status post stress test 5. Await recommendations from cardiology and clearance for left carotid endarterectomy 6. Continue with recommendations from neurology 7. Plan for left carotid endarterectomy tomorrow Thank you for this consultation, we will continue to follow. The impression and plan of care has been dictated as directed. Dr. Haji I performed a history and examination of this patient, discussed the same with the dictator. I agree with the dictator's note ,documented as a scribe. Any additional findings or plans will be noted.
--- NOTE | 2023-11-19 14:45 | P.PN ---
Subjective Progress Note Date: 11/19/23 HISTORY OF PRESENTING ILLNESS Patient is a 58-year-old female with past medical history of COPD, emphysema large bullae in left upper lung lobe, lung nodules, prior TIA CVA smoker 1 pack/day. Patient was evaluated by PCP for ongoing symptoms of increased forgetfulness and nonspecific neurological complaints of focal weakness. She had an outpatient MRI which showed concerns of embolic stroke involving the left frontoparietal cerebrum. She had a CTA neck which showed 70% right-sided disease, 80% left internal carotid stenosis. She has been planned for possible left carotid endarterectomy. Cardiology was consulted for perioperative risk assessment. Patient reports that she would experience on and off substernal chest pressure- like symptoms when she would exert. Lately she is not having any chest pain shortness of breath at rest. She denies any lightheadedness dizziness. She reports on and off palpitations. Progress note 11/17/2023 No further worsening of neurological symptoms. Hemodynamically stable. No evidence of atrial fibrillation on last 24 hours of telemetry monitoring Echocardiogram showed preserved LV size and systolic function. Aneurysmal interatrial septum. Mildly increased left atrial size. 11/17 Patient states that she has some shortness of breath. She continues to be a smoker. She underwent Lexiscan stress test today and report is pending. She states she is scheduled for carotid surgery on Saturday. Blood pressure 153/66, heart rate 70, pulse ox 90% on room air. 11/18 Yesterday, patient underwent Lexiscan Cardiolite stress test that came back negative. Patient is cleared for surgical intervention scheduled for tomorrow. She denies having any chest pain or shortness of breath. Blood pressure 111/65, heart rate 76, pulse ox 97% on room air. PHYSICAL EXAMINATION Vital signs reviewed. Head: Normocephalic. Eyes: Sclerae nonicteric. Neck: Brisk carotid upstroke, no jugular venous distention. Lungs: Clear to auscultation. Heart: Regular rate and rhythm, S1-S2, no S3, no murmur or rub. Abdomen: Soft nontender, positive bowel sounds. Extremities: No edema, intact distal pulses. Neuro: Alert, oritented, no focal deficits. Detailed neuro exam was not performed. ASSESSMENT Subacute CVA, likely embolic involving left frontoparietal lobe Bilateral ICA disease, 80% left side, 70% right side 1 pack tobacco smoker COPD with emphysema Left upper lung lobe bullae with lung nodule Stable anginal symptoms with chest pain on exertion PLAN Continue aspirin and atorvastatin Continue telemetry monitoring to make sure that there is no underlying atrial fibrillation. Patient would benefit from a 30-day event monitor at discharge. Patient is cleared from cardiology for left carotid endarterectomy which is scheduled for tomorrow. Neurology office on Nurse practitioner note has been reviewed, I agree with documented findings and plan of care. Patient was seen and examined. Objective - Vital Signs Vital signs: Vital Signs Temp 98.2 F 11/19/23 11:33 Pulse 88 11/19/23 11:33 Resp 14 11/19/23 11:33 BP 189/93 11/19/23 11:33 Pulse Ox 93 L 11/19/23 11:33 FiO2 Intake & Output 11/18/23 11/19/23 11/19/23 18:59 06:59 18:59 Intake Total 240 480 Balance 240 480 Intake: Oral 240 480 Other: Voiding Method Toilet Toilet Toilet # Voids 3 - Labs CBC & Chem 7: 11/19/23 08:47 11/19/23 08:47 Labs: Abnormal Lab Results - Last 24 Hours (Table) 11/19/23 Range/Units 08:47 Glucose 103 H (74-99) mg/dL
--- NOTE | 2023-11-19 15:16 | P.PN ---
Subjective Progress Note Date: 11/19/23 I am seeing the patient for the first time during this admission. Please refer to Dr. Llanos's notes for further details. Patient states she had weakness and numbness over the right side which resolved. She had MRI brain which showed strole over left subcorticl region and left frontoparietal junction. Has symptomatic left ICA and is scheduled for endartectomy tomorrow. She did smoke 1PPD prior to presenting to hospital. Objective - Vital Signs Vital signs: Vital Signs Temp 98.2 F 11/19/23 11:33 Pulse 88 11/19/23 11:33 Resp 14 11/19/23 11:33 BP 189/93 11/19/23 11:33 Pulse Ox 93 L 11/19/23 11:33 FiO2 Intake & Output 11/18/23 11/19/23 11/19/23 18:59 06:59 18:59 Intake Total 240 480 Balance 240 480 Intake: Oral 240 480 Other: Voiding Method Toilet Toilet Toilet # Voids 3 - Exam GENERAL: The patient is lying in bed and is not in acute distress. NEUROLOGICAL: Higher mental function: The patient is awake, alert, oriented to self, place and time. Patient is following commands. No aphasia and no neglect. Cranial nerves: The pupils are round, equal and reactive to light and accommodation. Visual nieves are full to confrontation throughout. Extraocular movement is intact no nystagmus is noted. Facial sensation is normal to touch throughout. The facial strength is normal throughout. Tongue is midline and moved [id number] without any difficulty. No dysarthria is noted. Shoulder shrug is normal bilaterally. Motor: The strength is right knee extension is 5-. Otherwise 5 over 5 throughout. Normal tone and bulk. Cerebellum: Normal finger to nose bilaterally. Sensation: Sensation is normal to touch throughout. - Labs CBC & Chem 7: 11/19/23 08:47 11/19/23 08:47 Labs: Abnormal Lab Results - Last 24 Hours (Table) 11/19/23 Range/Units 08:47 Glucose 103 H (74-99) mg/dL Assessment and Plan Assessment: * Acute ischemic stroke involving left hemispheric region. MRI of the brain revealed restricted diffusion along the subcortical region of the posterior left frontal lobe and left frontoparietal junction, somewhat in watershed distribution. Patient's NIH stroke scale is 2, mainly related to right leg ataxia, and slight sensory neglect of the right leg with double simultaneous stimulation. Patient was not a candidate for IV thrombolytic because came ou tside the window. Etiology of stroke is symptomatic left ICA. * Bilateral ICA stenosis, left side symptomatic with 80% stenosis. Right ICA stenosis just over 70% at the origin. Moderate focal stenosis at the origin of the left vertebral artery. Patient also has just over 70% stenosis of the origin of right ICA. * Hypertension * Tobacco use Plan: * MRI of the brain without contrast, revealed multiple foci of restricted diffusion along the subcortical region of the posterior left frontal lobe and left frontoparietal junction. Findings compatible with acute infarcts. Embolic phenomenon is consideration. Moderate burden of chronic small vessel ischemic disease is new compared to 2016 exam. I personally reviewed MRI agree with the findings, although it appears the ischemic lesions are involving the watershed territory between the left GAVIN/MCA. * 2-D echo with bubble study to rule out PFO * CTA head revealed no large vessel intracranial arterial occlusion, significant stenosis or aneurysmal change. * CTA of the neck revealed a 1 cm long segment of severe, 80% stenosis at and just above the left carotid bulb. Severe, just over 70% stenosis at the origin of the right ICA. Moderate focal stenosis at the origin of the left vertebral artery. * Carotid Doppler, performed outpatient 11/07/2023 revealed > 70% stenosis of bilateral carotid bifurcation, left greater than right. Antegrade flow in both vertebral arteries. * Vascular surgery has seen the patient for hemodynamically significant left ICA stenosis. Patient to undergo left CEA in this hospitalization, scheduled tentatively on 11/20/2023.. * Fasting a.m. lipid panel: Triglyceride is 238, cholesterol is 189, LDLs 80 and HDL is 40 * Hemoglobin A1c: 5.8. * Permissive hypertension for next 24-48 hours * Patient's dose of aspirin increased to [address] Llanos and was [address] arted on Plavix 75 mg daily as well. * Neuro checks every 4 hours. * Telemetry monitoring rule out any arrhythmia * Counseled on tobacco cessation. * PT, OT, speech therapy * DVT prophylaxis: Heparin 5000 units subcu every 8 hours The plan is discussed with patient and her nurse. Will follow-up with patient sporadically. Time with Patient: Less than 30
--- NOTE | 2023-11-19 19:17 | P.PN ---
Subjective Progress Note Date: 11/19/23 This is a pleasant 75 years old female with past medical history of multiple medical problems including CVA/TIA, dementia, diabetes mellitus, hypertension, hyperlipidemia, coronary artery disease, heart failure, syncope, right carotid artery stenosis and pulmonary hypertension and UTI with ESBL bacteria. She presents because of dyspnea per records. Patient is documented to have 2 L of oxygen at home at baseline. Patient currently is on BiPAP and very sleepy and cannot provide information. It was obtained from medical records and staff at bedside Patient is also obese with decreased air entry on both sides. Later on patient workup and she told me she came because of dyspnea. However she denies chest pain. She has headache but no dizziness. No weakness in arms and legs and she can move them both symmetrically. No diarrhea or abdominal pain or vomiting. No urinary complaint. She told me she quit smoking about 3 to 4 years ago, History still limited by the patient condition. On admission patient was hypoxic and she was placed on BiPAP also she was tachypneic RR 30/min this morning patient spiked a fever of 101. Patient INR is 0.8 and labs show a leukocytosis of 13,000, basic metabolic panel and liver enzymes were unremarkable proBNP is evaded 3890. Troponin is elevated 0.06. Chest x-ray are reviewed showing bilateral fluffy infiltrates more on the lower and middle zone. Most likely suspicious for fluid overload but cannot exclude pneumonia per radiologist. EKG sinus rhythm at 81 first first-degree heart block with no significant ST-T changes Echocardiogram done on 01/2023 showing preserved ejection fraction 55 to 60% with mild to moderate mitral regurgitation Patient was started on IV Lasix 40 mg every 8 hours. 11/16/2023 Patient presents with left CVA and right hemiparesis for more than a week and thought to be secondary to severe left internal carotid artery stenosis at 80% MRI of the brain showing multiple foci of infarct involving the left frontal lobe which is thought of embolic phenomenon. Therefore vascular surgery are planning to for her to undergo endarterectomy of her left internal carotid artery on this coming Sunday 11/19, this was explained for the patient in details and she looks agreeable to proceed with this plan As part of evaluation she will need preop assessment. Patient was found to be at some risk from this procedure. Cardiology were consulted. Echocardiogram was ordered as part of stroke workup as well as preop assessment which is still pending for now. She is currently on aspirin 325 mg Plavix, subcutaneous heparin and normal saline at 100 mL/h patient denies any other new complaint 11/17/2023 Patient is still with mild weakness on the right side. No more blurred vision or vision problems. No headache or dizziness. We are still in the process of evaluating the patient preoperatively. Cardiology consult was obtained. Echocardiogram showing preserved ejection fraction Stress test is ordered for tomorrow. Also supervisor hide house recommended event monitor 30 days upon discharge and JONN as an outpatient may be helpful for the patient In the meantime she remains on aspirin and Plavix She remains on normal saline at 50 mL/h Patient denies any other new complaints. Will order labs tomorrow 11/18/2023 Patient is seen and evaluated in follow-up today being followed by cardiology along with vascular surgery. Patient scheduled to undergo stress test and is currently NPO. Neurology also following undergoing workup for acute CVA. Patient with left internal carotid artery stenosis scheduled for carotid endarterectomy on 11/20/2023. Patient is afebrile with no reported chest pain or shortness of breath. No reported nausea or vomiting and diet will be resumed after stress test. 11/19/2023 Patient is seen in follow-up today with multiple medical consultations following including neurology, cardiology, and vascular surgery. Patient underwent extensive neurological workup for acute CVA also noted to have significant left internal carotid artery stenosis and underwent stress testing with cardiology clearance to proceed with endarterectomy. Tentatively scheduled for 11/20/2023 with vascular surgery. Patient is anxious and asking when she can go home and will discuss further with vascular surgery after surgical report. Patient is afebrile with no reported chest pain or shortness of breath. Patient is tole rating diet and will be n.p.o. at midnight with no reported nausea or vomiting. Patient per nursing staff was agitated due to multiple blood draws. Review of systems CONSTITUTIONAL: No fever, no malaise, no fatigue. HEENT: No recent visual problems or hearing problems. Denied any sore throat. CARDIOVASCULAR: No orthopnea, PND, no palpitations, no syncope. PULMONARY: No shortness of breath, no cough, no hemoptysis. HEMATOLOGICAL: Denies any bleeding or petechiae. GENITOURINARY: Denies any burning micturition, frequency, or urgency. MUSCULOSKELETAL/RHEUMATOLOGICAL: Denies any joint pain, swelling, or any muscle pain. ENDOCRINE: Denies any polyuria or polydipsia. Physical exam: This is a 58-year-old female who is awake, alert and oriented x 3, well- developed, well-nourished, thin built, appears older than stated age, anxious GENERAL: The patient is alert and oriented x3, vital signs are stable. HEENT: Pupils are round and equally reacting to light. EOMI. No scleral icterus. No conjunctival pallor. Normocephalic, atraumatic. No pharyngeal erythema. No thyromegaly. CARDIOVASCULAR: S1 and S2 present. No murmurs, rubs, or gallops. PULMONARY: Chest is clear to auscultation, no wheezing , no crackles. ABDOMEN: Soft, nontender, nondistended, normoactive bowel sounds. No palpable organomegaly. MUSCULOSKELETAL: No joint swelling or deformity. EXTREMITIES: No cyanosis, clubbing, or pedal edema. NEUROLOGICAL: Gross neurological examination did not reveal any focal deficits. Diffusely weak SKIN: No rashes. no petechiae. Assessment: Acute stroke with right hemiparesis. blurred vision/vision difficulty in the left eye that improved which could be related to above. Possible acute urinary tract infection, present on admission, ruled out likely asymptomatic bacteriuria and patient did receive antibiotics in the form of ceftriaxone for 3 days and will discontinue. Bilateral internal carotid artery stenosis, tentatively scheduled for carotid endarterectomy of the left on 11/20/2023 with vascular surgery Continued ongoing nicotine dependence GI prophylaxis DVT prophylaxis Full code Plan: Continue with current medications including aspirin, statin, Plavix Vascular surgery following with plan for endarterectomy tentatively on 11/19 Cardiology evaluated for presurgical clearance for endarterectomy. Patient underwent stress test with no evidence of reversible ischemia Urine cultures not done although repeat urinalysis is negative and patient was continued on ceftriaxone. Likely asymptomatic bacteriuria as patient is not reporting any pain, burning, or frequency with urination. Patient did receive 3 to 4 days of ceftriaxone PT/OT to evaluate with case management following and likely arranging with home and home care Repeat labs within normal limits and patient is agitated and frustrated with repeat blood draws and refusing any further blood draws. Encouraged increase activity as tolerated Patient will be n.p.o. at midnight and will await vascular surgery report Due to multiple complex medical issues, prognosis is guarded The impression and plan of care has been dictated by Lisbeth Nicholson, Nurse Practitioner as directed. Dr. Nelson MD I have performed a history and examination and MDM of this patient, discussed the same with the dictator, and agree with the dictator's assessment and plan as written ,documented as a scribe. Based on total visit time, I have performed more than 50% of the visit. Objective - Vital Signs Vital signs: Vital Signs Temp 98.2 F 11/19/23 08:00 Pulse 76 11/19/23 08:00 Resp 16 11/19/23 08:00 BP 111/65 11/19/23 08:00 Pulse Ox 97 11/19/23 08:00 FiO2 Intake & Output 11/18/23 11/19/23 11/19/23 18:59 06:59 18:59 Intake Total 240 Balance 240 Intake: Oral 240 Other: Voiding Method Toilet Toilet # Voids 3 - Labs CBC & Chem 7: 11/19/23 08:47 11/19/23 08:47 Labs: Abnormal Lab Results - Last 24 Hours (Table) 11/19/23 Range/Units 08:47 Glucose 103 H (74-99) mg/dL
[2023-11-20] MEDS: IV FLUID CONTINUATION 1,000 ML IV ONE (08:54)
[2023-11-20] MEDS: MIDAZOLAM 2 MG/2 ML VIAL IVP ONE ×2 (09:00→09:37)
[2023-11-20] MEDS ORDERED: ONDANSETRON 4 MG/2 ML VIAL ONE ×2 (11:12→12:00)
[2023-11-20] MEDS ORDERED: PROPOFOL 10 MG/ML 20 ML VIAL IV ONE (12:00)
[2023-11-20] MEDS ORDERED: hydrALAZINE HCL 20 MG/ML 1 ML VIAL ONE (12:00)
[2023-11-20] MEDS ORDERED: ESMOLOL 100 MG/10 ML VIAL ONE (12:00)
[2023-11-20] MEDS ORDERED: HEPARIN SODIUM,PORCINE 10,000 UNIT/ML 1 ML VIAL ONE (12:00)
[2023-11-20] MEDS ORDERED: NEOSTIGMINE 1 MG/ML 10 ML VIAL ONE (12:00)
[2023-11-20] MEDS ORDERED: ROCURONIUM 10 MG/ML (5 ML VIAL) IV ONE (12:00)
[2023-11-20] MEDS ORDERED: PROTAMINE SULFATE 10 MG/ML 5 ML VIAL ONE (12:00)
[2023-11-20] MEDS ORDERED: fentaNYL (PF) 50 MCG/ML 2 ML AMP ONE (12:00)
[2023-11-20] MEDS ORDERED: MIDAZOLAM 2 MG/2 ML VIAL ONE (12:00)
[2023-11-20] MEDS ORDERED: SUCCINYLCHOLINE CHLORIDE 200 MG/10 ML VIAL IV ONE (12:00)
[2023-11-20] MEDS ORDERED: ePHEDrine 50 MG/ML 1 ML VIAL ONE (12:00)
[2023-11-20] MEDS ORDERED: DEXAMETHASONE SOD PHOSPHATE 4 MG/ML 1 ML VIAL ONE (12:00)
[2023-11-20] MEDS ORDERED: GLYCOPYRROLATE 0.2 MG/ML 2 ML VIAL ONE (12:00)
[2023-11-20] MEDS: LACTATED RINGERS 1,000 ML IV ONE (12:03)
[2023-11-20] MEDS: ceFAZolin 2,000 MG in SODIUM CHLORIDE 0.9% 500 ML IRRIGATION ONE (12:03)
[2023-11-20] MEDS: HEPARIN SODIUM (1,000 UNIT/ML) 2,000 UNIT in SODIUM CHLORIDE 0.9% 1,000 ML IRRIGATION ONE (12:03)
[2023-11-20] MEDS: SODIUM CHLORIDE 0.9% 50 ML with ceFAZolin 2,000 MG IV ONE (12:51)
--- NOTE | 2023-11-20 12:53 | P.ANPRN ---
Procedure Note - Anesthesia - Invasive Line Right Arterial Line Time Out Performed: Yes Date of Procedure: 11/20/23 Time of Procedure: 12:25 Location of Patient: OR Preparation: Sterile Prep Arterial Line Location: Briachial Ultrasound Used: Yes Purpose - Visualization and Identification of Vasculature: Yes Image Stored and Saved: No Narrative: Invasive line placement per sterile protocol utilized. Initial attempt in right radial by [facility] unable to thread guidewire secondary to extremely narrow and atherosclerotic artery. On left side radial artery could not be palpated secondary to previous surgery. Right brachial artery with ultra sound was successful in one attempt.
[2023-11-20] MEDS: THROMBIN (BOVINE) 5,000 UNIT VIAL TOPICAL ONE (13:08)
[2023-11-20] MEDS: droPERidol 5 MG/2 ML VIAL IVP ONE (15:01)
--- NOTE | 2023-11-20 15:05 | P.OP ---
Date of Procedure: 11/20/23 Preoperative Diagnosis: Symptomatic and hemodynamically severe left ICA stenosis Postoperative Diagnosis: Same. Procedure(s) Performed: Left carotid endarterectomy with patch angioplasty. Anesthesia: VAISHNAVI Surgeon: Hao Blunt Estimated Blood Loss (ml): 50 Pathology: none sent Condition: stable Disposition: ICU Indications for Procedure: Patient is a 58-year-old female who presented with a history of left hemispheric CVA. In workup for this patient was found to be suffering from hemodynamically severe left ICA stenosis. Given the patient's young age it is felt the patient would be best served by carotid endarterectomy. The procedure, risk and benefits were discussed with the patient in great detail. All questions were answered patient's satisfaction and patient wishes to proceed with surgery. Description of Procedure: Description of procedure and findings: Patient was brought the op room placed in supine position administered general endotracheal anesthesia administered by the department anesthesiology. A radial arterial catheter was placed for hemodynamically monitoring by the anesthesia team. Patient received intravenously administered prophylactic antibiotics in the perioperative phase. Patient's left neck and anterior chest wall as well as the supraclavicular areas were sterilely prepped and draped in usual manner. Skin incision was made overlying the anterior border the sternocleidomastoid muscle and carried down through the subcutaneous tissues. Hemostasis was achieved using electrocautery. The incision was deepened along the anterior border of the sternocleidomastoid muscle. No prominent facial vein was identified. The carotid sheath was opened exposing the common carotid artery. The artery was dissected free of investing tissues at this level and encircled with Vesseloops. Vagus nerve was identified and left and disturbed. Dissection was then carried cephalad along the common carotid to the level of the carotid bulb. The external carotid artery was identified and dissected free of investin g tissues and encircled Vesseloops. The dissection was then carried cephalad along the internal carotid artery to a point distal to the plaque. The hypoglossal nerve was identified and left undisturbed. The patient was systemically heparinized and after adequate circulation time the Vesseloops surrounding the internal carotid artery, carotid and carotid artery and external carotid arteries were drawn closed. Arteriotomy was made in the common carotid and extended with [employer] scissors to a point Plast the plaque. Stump pressure was obtained. This was found to be 43 mmHg and as such it was felt the patient would benefit from a shunt and as such a shunt was placed within the internal carotid artery, backbled and placed in the common carotid artery thus restoring flow into the internal system. Endarterectomy was then started at the common level extended cephalad to the bulb level. Retraction endarterectomy on the external carotid artery was performed. The endarterectomy plane was continued into the internal carotid and feathered off quite well. Specimen sent to pathology. Remaining luminal surface was inspected for any loose or free-floating material and this was removed where identified. The remaining plaque at the internal carotid artery was tacked with 6-0 Prolene suture. Patch angioplasty closure utilizing bovine pericardium was performed with 6-0 Prolene suture placed in a running fashion. Just prior to completion of the anastomotic line the shunt was removed. Backbleeding through the internal was allowed to occur and no thrombus was retrieved. This was also performed for the external carotid and common carotid arteries, again no thrombus being retrieved. The anastomotic line was completed. Flow was backbled through the internal carotid artery. The internal was then occluded at its origin and Vesseloops surrounding the first the external carotid and finally the common carotid artery were loosened thus allowing flow through the external system and flushing any potential debris into the external system. Flow was then restored into the internal system. 2 areas of anastomotic line bleed were identified and these were controlled with 6-0 Pr olene suture. The patient received 12.5 mg of protamine to reverse the heparin effect. Topical thrombin and Gelfoam were placed about the anastomotic line to help assure hemostasis. The wound was irrigated. Deep tissue was closed with 3-0 Vicryl dermis was closed with 4-0 Monocryl placed in running intradermal fashion. Appropriate dressing was applied. Patient tolerated the procedure well, awoke without apparent neurologic complication was transferred to the recovery area in satisfactory and stable condition.
[2023-11-20] MEDS: PHENYLEPHRINE 40 MG in SODIUM CHLORIDE 0.9% 250 ML IV SCH (15:16)
[2023-11-20 16:37] LABS: Glucose,Whole Blood 143 mg/dL (70-110)
[2023-11-20 17:11] LABS: Basophils % (A) 0 %; Eosinophils % (A) 0 %; HCT 36.6 % (34.0-46.0); HGB 12.4 gm/dL (11.4-16.0); Lymphocytes # (A) 1.5 k/uL (1.0-4.8); Lymphocytes % (A) 9 %; MCH 31.3 pg (25.0-35.0); MCV 92.2 fL (80.0-100.0); Mean Platelet Volume 7.3; Monocytes # (A) 0.2 k/uL (0-1.0); Monocytes % (A) 1 %; Neutrophils % (A) 90 %; Platelet Count 292 k/uL (150-450); RBC 3.97 m/uL (3.80-5.40); RDW 12.6 % (11.5-15.5); WBC 16.8 k/uL (3.8-10.6)
[2023-11-20 17:27] LABS: ALT 76 U/L (4-34); AST 96 U/L (14-36); African American GFR (CKD) 86 (>60 ml/min/1.73 sqM); Albumin 3.5 g/dL (3.5-5.0); Alkaline Phosphatase 113 U/L (38-126); Anion Gap 7 mmol/L; Blood Urea Nitrogen 12 mg/dL (7-17); Calcium 8.8 mg/dL (8.4-10.2); Carbon Dioxide 21 mmol/L (22-30); Chloride 110 mmol/L (98-107); Glucose 135 mg/dL (74-99); Non-African American GFR(CKD) 75 (>60 ml/min/1.73 sqM); Potassium 3.9 mmol/L (3.5-5.1); Sodium 138 mmol/L (137-145); Total Bilirubin 0.2 mg/dL (0.2-1.3); Total Protein 6.2 g/dL (6.3-8.2)
--- NOTE | 2023-11-21 05:51 | P.PN ---
Subjective Progress Note Date: 11/20/23 This is a pleasant 75 years old female with past medical history of multiple medical problems including CVA/TIA, dementia, diabetes mellitus, hypertension, hyperlipidemia, coronary artery disease, heart failure, syncope, right carotid artery stenosis and pulmonary hypertension and UTI with ESBL bacteria. She presents because of dyspnea per records. Patient is documented to have 2 L of oxygen at home at baseline. Patient currently is on BiPAP and very sleepy and cannot provide information. It was obtained from medical records and staff at bedside Patient is also obese with decreased air entry on both sides. Later on patient workup and she told me she came because of dyspnea. However she denies chest pain. She has headache but no dizziness. No weakness in arms and legs and she can move them both symmetrically. No diarrhea or abdominal pain or vomiting. No urinary complaint. She told me she quit smoking about 3 to 4 years ago, History still limited by the patient condition. On admission patient was hypoxic and she was placed on BiPAP also she was tachypneic RR 30/min this morning patient spiked a fever of 101. Patient INR is 0.8 and labs show a leukocytosis of 13,000, basic metabolic panel and liver enzymes were unremarkable proBNP is evaded 3890. Troponin is elevated 0.06. Chest x-ray are reviewed showing bilateral fluffy infiltrates more on the lower and middle zone. Most likely suspicious for fluid overload but cannot exclude pneumonia per radiologist. EKG sinus rhythm at 81 first first-degree heart block with no significant ST-T changes Echocardiogram done on 01/2023 showing preserved ejection fraction 55 to 60% with mild to moderate mitral regurgitation Patient was started on IV Lasix 40 mg every 8 hours. 11/16/2023 Patient presents with left CVA and right hemiparesis for more than a week and thought to be secondary to severe left internal carotid artery stenosis at 80% MRI of the brain showing multiple foci of infarct involving the left frontal lobe which is thought of embolic phenomenon. Therefore vascular surgery are planning to for her to undergo endarterectomy of her left internal carotid artery on this coming Sunday 11/19, this was explained for the patient in details and she looks agreeable to proceed with this plan As part of evaluation she will need preop assessment. Patient was found to be at some risk from this procedure. Cardiology were consulted. Echocardiogram was ordered as part of stroke workup as well as preop assessment which is still pending for now. She is currently on aspirin 325 mg Plavix, subcutaneous heparin and normal saline at 100 mL/h patient denies any other new complaint 11/17/2023 Patient is still with mild weakness on the right side. No more blurred vision or vision problems. No headache or dizziness. We are still in the process of evaluating the patient preoperatively. Cardiology consult was obtained. Echocardiogram showing preserved ejection fraction Stress test is ordered for tomorrow. Also baling press operator recommended event monitor 30 days upon discharge and JONN as an outpatient may be helpful for the patient In the meantime she remains on aspirin and Plavix She remains on normal saline at 50 mL/h Patient denies any other new complaints. Will order labs tomorrow 11/18/2023 Patient is seen and evaluated in follow-up today being followed by cardiology along with vascular surgery. Patient scheduled to undergo stress test and is currently NPO. Neurology also following undergoing workup for acute CVA. Patient with left internal carotid artery stenosis scheduled for carotid endarterectomy on 11/20/2023. Patient is afebrile with no reported chest pain or shortness of breath. No reported nausea or vomiting and diet will be resumed after stress test. 11/19/2023 Patient is seen in follow-up today with multiple medical consultations following including neurology, cardiology, and vascular surgery. Patient underwent extensive neurological workup for acute CVA also noted to have significant left internal carotid artery stenosis and underwent stress testing with cardiology clearance to proceed with endarterectomy. Tentatively scheduled for 11/20/2023 with vascular surgery. Patient is anxious and asking when she can go home and will discuss further with vascular surgery after surgical report. Patient is afebrile with no reported chest pain or shortness of breath. Patient is tole rating diet and will be n.p.o. at midnight with no reported nausea or vomiting. Patient per nursing staff was agitated due to multiple blood draws. 11/20/2023 Patient is seen and evaluated in follow-up this morning being taken to preop with plans for left endarterectomy with vascular surgery today. Patient is n.p.o. and will await surgical report. Patient may go to ICU for close monitoring postoperatively. Review of systems CONSTITUTIONAL: No fever, no malaise, no fatigue. HEENT: No recent visual problems or hearing problems. Denied any sore throat. CARDIOVASCULAR: No orthopnea, PND, no palpitations, no syncope. PULMONARY: No shortness of breath, no cough, no hemoptysis. HEMATOLOGICAL: Denies any bleeding or petechiae. GENITOURINARY: Denies any burning micturition, frequency, or urgency. MUSCULOSKELETAL/RHEUMATOLOGICAL: Denies any joint pain, swelling, or any muscle pain. ENDOCRINE: Denies any polyuria or polydipsia. Physical exam: This is a 58-year-old female who is awake, alert and oriented x 3, well- developed, well-nourished, thin built, appears older than stated age, anxious GENERAL: The patient is alert and oriented x3, vital signs are stable. HEENT: Pupils are round and equally reacting to light. EOMI. No scleral icterus. No conjunctival pallor. Normocephalic, atraumatic. No pharyngeal erythema. No thyromegaly. CARDIOVASCULAR: S1 and S2 present. No murmurs, rubs, or gallops. PULMONARY: Chest is clear to auscultation, no wheezing , no crackles. ABDOMEN: Soft, nontender, nondistended, normoactive bowel sounds. No palpable organomegaly. MUSCULOSKELETAL: No joint swelling or deformity. EXTREMITIES: No cyanosis, clubbing, or pedal edema. NEUROLOGICAL: Gross neurological examination did not reveal any focal deficits. Diffusely weak SKIN: No rashes. no petechiae. Assessment: Acute stroke with right hemiparesis. blurred vision/vision difficulty in the left eye that improved which could be related to above. Possible acute urinary tract infection, present on admission, ruled out likely asymptomatic bacteriuria and patient did receive antibiotics in the form of ceftriaxone for 3 days and will discontinue. Bilateral internal carotid artery stenosis, scheduled for carotid endarterectomy of the left today with vascular surgery Continued ongoing nicotine dependence GI prophylaxis DVT prophylaxis Full code Plan: Continue with current medications including aspirin, statin, Plavix Vascular surgery following scheduled to undergo endarterectomy today. Will await surgical report Cardiology evaluated for presurgical clearance for endarterectomy. Patient underwent stress test with no evidence of reversible ischemia Urine cultures not done although repeat urinalysis is negative and patient was continued on ceftriaxone. Likely asymptomatic bacteriuria as patient is not reporting any pain, burning, or frequency with urination. Patient did receive 3 to 4 days of ceftriaxone PT/OT to evaluate with case management following and likely arranging with home and home care Repeat labs within normal limits and patient is agitated and frustrated with repeat blood draws and refusing any further blood draws. Encouraged increase activity as tolerated Patient is currently n.p.o. and will resume diet once cleared by vascular surgery Patient may go to ICU postoperatively for close monitoring Due to multiple complex medical issues, prognosis is guarded The impression and plan of care has been dictated by Lisbeth Nicholson, Nurse Practitioner as directed. Dr. Nelson MD I have performed a history and examination and MDM of this patient, discussed the same with the dictator, and agree with the dictator's assessment and plan as written ,documented as a scribe. Based on total visit time, I have performed more than 50% of the visit. Objective - Vital Signs Vital signs: Vital Signs Temp 97.3 F L 11/20/23 09:03 Pulse 70 11/20/23 09:03 Resp 16 11/20/23 09:03 BP 142/86 11/20/23 09:03 Pulse Ox 97 11/20/23 09:03 FiO2 Intake & Output 11/19/23 11/20/23 11/20/23 18:59 06:59 18:59 Intake Total 2480 0 Output Total 800 Balance 2480 -800 0 Intake: IV 0 Oral 2480 Output: Urine 800 Other: Voiding Method Toilet Toilet # Voids 1 - Labs CBC & Chem 7: 11/20/23 16:51 11/20/23 16:51
--- NOTE | 2023-11-21 07:16 | P.PN ---
Subjective Progress Note Date: 11/21/23 PROGRESS NOTE The patient is a 58-year-old female who presented with a cerebrovascular accident and was found to have severe obstructive disease in the carotid artery. She underwent carotid endarterectomy yesterday. Prior to surgery she had a nuclear scan that showed no evidence of stress-induced ischemia. She is anxious to go home today. She denies any chest discomfort, dizziness or palpitations. She is in sinus mechanism. She has no evidence of any arrhythmia. Medications: Aspirin, atorvastatin 40 mg daily, clopidogrel 75 mg daily, metoprolol 25 mg twice a day PHYSICAL EXAMINATION: Blood pressure 130/60 heart rate 80 Neck: Dressing on the left side, dry LUNGS: Clear to auscultation HEART: Regular rate and rhythm, S1, S2. No S3. No systolic murmur ABDOMEN: Soft, nontender, no organomegaly EXTREMETIES: No edema IMPRESSION: 1. Status post left carotid endarterectomy 2. History of CVA 3. Hyperlipidemia 4. Chronic tobacco use PLAN: 1. Continue present therapy 2. Increase physical activity 3. Probable discharge home today 4. We will see as needed, please feel free to call us for any question Objective - Vital Signs Vital signs: Vital Signs Temp 97.6 F 11/21/23 04:00 Pulse 86 11/21/23 06:30 Resp 21 11/21/23 06:30 BP 118/72 11/21/23 02:15 Pulse Ox 93 L 11/21/23 06:30 FiO2 Intake & Output 11/20/23 11/21/23 11/21/23 18:59 06:59 18:59 Intake Total 2489.132 1200 Output Total 200 1150 Balance 2289.132 50 Weight 49.895 kg 60.8 kg Intake: IV 2452 1200 Sodium Chloride 0.9% 1, 200 1200 000 ml @ 100 mls/hr IV . Q10H NBA Rx#:[id number] Intake, IV Titration 37.132 Amount Phenylephrine 40 mg In 37.132 Sodium Chloride 0.9% 250 ml @ 1 MCG/KG/MIN 19.01 mls/hr IV .[id number] NBA Rx #:[id number] Blood Product 0 Output: Urine 150 1150 Estimated Blood Loss 50 Other: # Voids 1 ABP, PAP, CO, CI - Last Documented Arterial Blood Pressure 130/61 - Labs CBC & Chem 7: 11/20/23 16:51 03/13/24 16:51 Labs: Abnormal Lab Results - Last 24 Hours (Table) 11/20/23 11/20/23 11/20/23 Range/Units 16:37 16:51 16:51 WBC 16.8 H (3.8-10.6) k/uL Neutrophils # 15.0 H (1.3-7.7) k/uL Chloride 110 H (98-107) mmol/L Carbon Dioxide 21 L (22-30) mmol/L Glucose 135 H (74-99) mg/dL POC Glucose (mg/dL) 143 H (70-110) mg/dL AST 96 H (14-36) U/L ALT 76 H (4-34) U/L Total Protein 6.2 L (6.3-8.2) g/dL
--- NOTE | 2023-11-21 09:52 | P.PN ---
Subjective Progress Note Date: 11/21/23 Principal diagnosis: Carotid stenosis Patient is seen and examined today as a follow-up. She is in the ICU and is postop day #1 for left carotid endarterectomy with patch angioplasty. She was able to swallow her pills and some pudding. She has not had breakfast yet this morning. Denies any focal deficits. Blood pressures have been stable. She denies any pain. Just some tenderness and on the left side of her neck. Objective - Vital Signs Vital signs: Vital Signs Temp 97.6 F 11/21/23 04:00 Pulse 86 11/21/23 06:30 Resp 21 11/21/23 06:30 BP 118/72 11/21/23 02:15 Pulse Ox 93 L 11/21/23 06:30 FiO2 Intake & Output 11/20/23 11/21/23 11/21/23 18:59 06:59 18:59 Intake Total 2489.132 1200 Output Total 200 1150 Balance 2289.132 50 Weight 49.895 kg 60.8 kg Intake: IV 2452 1200 Sodium Chloride 0.9% 1, 200 1200 000 ml @ 100 mls/hr IV . Q10H NBA Rx#:[id number] Intake, IV Titration 37.132 Amount Phenylephrine 40 mg In 37.132 Sodium Chloride 0.9% 250 ml @ 1 MCG/KG/MIN 19.01 mls/hr IV .[id number] NBA Rx #:[id number] Blood Product 0 Output: Urine 150 1150 Estimated Blood Loss 50 Other: # Voids 1 ABP, PAP, CO, CI - Last Documented Arterial Blood Pressure 130/61 - Exam General appearance: The patient is alert, oriented, appears in no acute distress. HET: Head is normocephalic and atraumatic. Pupils are equal and reactive. Neck: Supple. Left side of neck incision well-approximated with some ecchymosis surrounding. No swelling or hematoma noted. Heart: Regular. Lungs: Equal expansion, normal respiratory effort. Abdomen: Soft, nontender, nondistended. Extremities: Normal skin color and turgor. Neurological: No focal deficits noted. Patient alert and oriented. - Labs CBC & Chem 7: 11/20/23 16:51 11/20/23 16:51 Labs: Abnormal Lab Results - Last 24 Hours (Table) 11/20/23 11/20/23 11/20/23 Range/Units 16:37 16:51 16:51 WBC 16.8 H (3.8-10.6) k/uL Neutrophils # 15.0 H (1.3-7.7) k/uL Chloride 110 H (98-107) mmol/L Carbon Dioxide 21 L (22-30) mmol/L Glucose 135 H (74-99) mg/dL POC Glucose (mg/dL) 143 H (70-110) mg/dL AST 96 H (14-36) U/L ALT 76 H (4-34) U/L Total Protein 6.2 L (6.3-8.2) g/dL Assessment and Plan Assessment: 1. Hemodynamically severe left ICA stenosis, symptomatic status post left carotid endarterectomy with patch angioplasty 2. Acute ischemic infarcts left frontal lobe 3. Right-sided weakness 4. Left visual disturbances 5. Nicotine dependence 6. COPD 7. Emphysema Plan: 1. Continue aspirin 81 mg daily, atorvastatin 40 mg at bedtime and Plavix 75 mg daily 2. Discussed with patient importance of smoking cessation 3. Discharge instructions reviewed with patient 4. She is cleared for discharge from vascular surgery. She is instructed to follow-up in 1 to 2 weeks. Thank you for this consultation, we will sign off at this time. The impression and plan of care has been dictated as directed. Dr. Blunt I performed a history and examination of this patient, discussed the same with the dictator. I agree with the dictator's note ,documented as a scribe. Any additional findings or plans will be noted.
[2023-11-21 10:00] VITALS: TEMP 98.1
[2023-11-21 10:35] VITALS: BP 127/103
[2023-11-21 11:10] VITALS: PULSE 71; RESP 19
--- NOTE | 2023-11-24 12:09 | P.DS ---
Providers Date of admission: 11/14/23 20:41 Expected date of discharge: 11/21/23 Attending physician: Jj Black Consults: 11/14/23 20:40 Consult Physician Routine Consulting Provider: Nadia Llanos Consult Reason/Comments: cva Do you want consulting provider notified?: Yes 11/15/23 08:39 Consult Physician Routine Consulting Provider: Mars Haji Consult Reason/Comments: Bilateral internal carotid artery stenosis Do you want consulting provider notified?: Yes 11/15/23 11:22 Consult Physician Routine Consulting Provider: Jin Quintero Consult Reason/Comments: cardiac clearance for left carotid endarterectomy Do you want consulting provider notified?: Yes Primary care physician: Simonyazmin Yang [place] Hospital Course: Final diagnosis Acute stroke with right hemiparesis. blurred vision/vision difficulty in the left eye that improved likely related to above. Possible acute urinary tract infection, present on admission, ruled out likely asymptomatic bacteriuria and patient did receive antibiotics in the form of ceftriaxone for 3 days and will discontinue. Bilateral internal carotid artery stenosis, status post left carotid endarterectomy with patch angioplasty on 11/20/2023 with vascular surgery Continued ongoing nicotine dependence GI prophylaxis DVT prophylaxis Full code Discharge disposition Patient is being discharged in a stable condition with guarded prognosis to home. Patient will follow-up with Dr. Kohli current medications and close outpatient follow-up with cardiology in the outpatient setting upon discharge. Patient is to continue with, neurology, and vascular surgery as scheduled. Total time taken is greater than 35 minutes. Hospital course This is a 58-year-old female who was recently admitted with right hemiparesis with blurred vision being worked up for acute stroke. Patient underwent neurological evaluation confirming CVA also found to have significant bilateral internal carotid artery stenosis. Patient was evaluated by vascular surgery along with cardiology and cleared for surgical intervention. Patient underwent left internal carotid artery with patch angioplasty. Patient will continue on current medications as mentioned below and close outpatient follow-up with primary care provider as well as neurology, cardiology, and vascular surgery. Patient has been cleared by consultations for discharge home today. Patient reports doing well and extremely anxious to go home. Please refer to other consultation notes for further HPI. Currently no reports of chest pain, shortness of breath, or palpitations. Patient is afebrile. No reports of nausea or vomiting and patient is tolerating diet. Patient will be discharged home today. Guarded prognosis and high risk for readmissions as patient is noncompliant with medications and outpatient follow-up along with significant comorbidities. Patient has been extensively counseled on complete tobacco cessation. Patient reports has not smoked in 1 week. Nicotine patches were provided on discharge. Physical exam: Gen: This is a 58-year-old female who is awake, alert and oriented x 3, thin built, elderly appearing HEENT: Head is atraumatic, normocephalic. Pupils equal, round. Sclerae is anicteric. NECK: Supple. No JVD. No lymphadenopathy. No thyromegaly. LUNGS: Clear to auscultation. No wheezes or rhonchi. No intercostal retractions. HEART: Regular rate and rhythm. No murmur. ABDOMEN: Soft. Bowel sounds are present. No masses. No tenderness. EXTREMITIES: No pedal edema. No calf tenderness. NEUROLOGICAL: Patient is awake, alert and oriented x3. Cranial nerves 2 through 12 are grossly intact. Please refer to medication reconciliation sheet for a list of medications. The impression and plan of care has been dictated by Lisbeth Nicholson, Nurse Practitioner as directed. Dr. Nelson MD I have performed a history and examination and MDM of this patient, discussed the same with the dictator, and agree with the dictator's assessment and plan as written ,documented as a scribe. Based on total visit time, I have performed more than 50% of the visit. Patient Condition at Discharge: Fair Plan - Discharge Summary Discharge Rx Participant: Yes New Discharge Prescriptions: New Atorvastatin [Lipitor] 40 mg PO HS #30 tab Nicotine 21Mg/24Hr Patch [Habitrol] 1 patch TRANSDERM DAILY #30 patch Metoprolol Tartrate [Lopressor] 25 mg PO BID #60 tab polyethylene glycoL 3350 [Miralax] 17 gm PO DAILY PRN packet PRN Reason: Constipation Clopidogrel [Plavix] 75 mg PO DAILY #30 tab Continue QUEtiapine [SEROquel] 100 mg PO HS PRN PRN Reason: sleep Aspirin EC [Ecotrin Low Dose] 81 mg PO DAILY Discontinued ALPRAZolam [Xanax] 0.5 mg PO BID PRN PRN Reason: Anxiety Discharge Medication List QUEtiapine [SEROquel] 100 mg PO HS PRN 11/07/23 [History] Aspirin EC [Ecotrin Low Dose] 81 mg PO DAILY 11/14/23 [History] Atorvastatin [Lipitor] 40 mg PO HS #30 tab 11/21/23 [Rx] Clopidogrel [Plavix] 75 mg PO DAILY #30 tab 11/21/23 [Rx] Metoprolol Tartrate [Lopressor] 25 mg PO BID #60 tab 11/21/23 [Rx] Nicotine 21Mg/24Hr Patch [Habitrol] 1 patch TRANSDERM DAILY #30 patch 11/21/23 [Rx] polyethylene glycoL 3350 [Miralax] 17 gm PO DAILY PRN packet 11/21/23 [Rx] Follow up Appointment(s)/Referral(s): Patrick Knapp MD [STAFF PHYSICIAN] - 2 Weeks Hao Blunt DO [Doctor of Osteopathic Medicine] - 2 Weeks Simon Yang DO [Primary Care Provider] - 1-2 days Funmi Ravi MD [Medical Doctor] - 2 Weeks Patient Instructions/Handouts: How to Stop Smoking (DC) Activity/Diet/Wound Care/Special Instructions: No strenuous activity or heavy lifting greater than 10 pounds. May shower tomorrow 11/22/2023 but no tub bathing or soaking. Watch incision site for infection including redness, drainage, or temperature greater than 100.4. No driving until cleared by vascular surgeon. If you notice he symptoms please call office Continue to avoid tobacco use Activity limited until follow-up Follow-up with vascular surgery as discussed Follow-up cardiology outpatient Follow-up neurology outpatient Follow-up primary care provider on discharge Continue taking medications as prescribed Discharge Disposition: HOME SELF-CARE
== END 2023-11-21 11:52 | disposition home or self-care (01) | DRG 24 ==
LOC: EC 18:04 → 3SCARD 20:41 → 2SICU 11-20 16:09
PROVIDERS: ADMIT Hospitalist; ATTEND Hospitalist
PROC: 4A02XM4 Measurement of Cardiac Total Activity, External Approach (ICD-10-PCS; 2023-11-18)
PROC: 03UL3JZ Supplement Left Internal Carotid Artery with Synthetic Substitute, Percutaneous Approach (ICD-10-PCS; 2023-11-20)
PROC: 4A133B1 Monitoring of Arterial Pressure, Peripheral, Percutaneous Approach (ICD-10-PCS; 2023-11-20)
PROC: 4A133J1 Monitoring of Arterial Pulse, Peripheral, Percutaneous Approach (ICD-10-PCS; 2023-11-20)
PROC: 03HY32Z Insertion of Monitoring Device into Upper Artery, Percutaneous Approach (ICD-10-PCS; 2023-11-20)
PROC: 03CL3ZZ Extirpation of Matter from Left Internal Carotid Artery, Percutaneous Approach (ICD-10-PCS; principal; 2023-11-20 10:00)
DX: I63.40 Cerebral infarction due to embolism of unspecified cerebral artery (principal); G81.91 Hemiplegia, unspecified affecting right dominant side; N39.0 Urinary tract infection, site not specified; E78.5 Hyperlipidemia, unspecified; H35.039 Hypertensive retinopathy, unspecified eye; F31.9 Bipolar disorder, unspecified; Z53.29 Procedure and treatment not carried out because of patient's decision for other reasons; R29.702 NIHSS score 2; H54.62 Unqualified visual loss, left eye, normal vision right eye; F17.210 Nicotine dependence, cigarettes, uncomplicated; I25.10 Atherosclerotic heart disease of native coronary artery without angina pectoris; I27.20 Pulmonary hypertension, unspecified; K59.09 Other constipation; I65.23 Occlusion and stenosis of bilateral carotid arteries; Q05.9 Spina bifida, unspecified; I11.0 Hypertensive heart disease with heart failure; I44.0 Atrioventricular block, first degree; J43.9 Emphysema, unspecified; J44.9 Chronic obstructive pulmonary disease, unspecified; Z79.02 Long term (current) use of antithrombotics/antiplatelets; Z79.82 Long term (current) use of aspirin; Z80.1 Family history of malignant neoplasm of trachea, bronchus and lung; Z86.73 Personal history of transient ischemic attack (TIA), and cerebral infarction without residual deficits; Z88.5 Allergy status to narcotic agent; Z88.8 Allergy status to other drugs, medicaments and biological substances; Z88.0 Allergy status to penicillin; Z71.6 Tobacco abuse counseling; Z90.49 Acquired absence of other specified parts of digestive tract; Z98.51 Tubal ligation status; Z87.19 Personal history of other diseases of the digestive system
CPT/HCPCS: 36415; 70496; 70498; 78452; 80048; 80053; 80061; 81001; 81003; 83036; 83605; 83735; 83880; 84100; 84484; 85025; 85610; 85730; 86850; 86900; 86901; 88304; 93005; 93017; 93306; 96365; 99285

== ENCOUNTER → 2023-11-14 | Outpatient (CLI) | payer BC ==
--- NOTE | 2023-11-14 16:43 | MR ---
EXAMINATION TYPE: MR brain wo con DATE OF EXAM: 11/14/2023 COMPARISON: NONE HISTORY: 58-year-old female R41.82, altered mental status, dizziness and unsteady gate, incident of r ight sided numbness and weakness 1 week ago sudden onset, possible TIA, no seizures no CA TECHNIQUE: Multiplanar, multisequence images of the brain and brainstem were acquired without IV con trast. Diffusion weighted imaging is performed. FINDINGS: T2/FLAIR weighted sequences show moderate foci of bright white matter changes especially in the deep white matter regions. There are additional foci in the subcortical region of the posterior left front al lobe and left frontoparietal junction that show corresponding restricted diffusion. Small foci of bright signal DWI right frontal region corresponds to T2 shine through. No evidence for hemorrhage, mass, mass effect, midline shift, herniation, effacement of basal cistern s, or extra-axial fluid collection. The ventricles and sulci are age-appropriate. Major intracranial flow voids are intact. Midline structures demonstrate normal morphology. The craniocervical junction is normal. Mild mucosal thickening ethmoid air cells. Globes are intact. IMPRESSION: 1. Multiple foci of restricted diffusion along the subcortical region of the posterior left frontal l obe and left frontoparietal junction. Findings compatible with acute infarcts. Embolic phenomenon is a consideration. 2. Moderate burden of chronic small vessel ischemic disease is new compared to the 2016 exam. 3. No midline shift, mass effect, hydrocephalus, or herniation. A [place] critical message alert has been initiated for Simon Yang DO via the [employer] Critical Results System on 11/14/2023 4:41 PM. This message alert has been sent to Simon Yang DO via the preferences provided by the clinician for the receipt of Radiology Critical Findings. [facility] ID [id number].
== END | disposition home or self-care (01) ==
LOC: RADMRIMAIN 08:13
PROVIDERS: ATTEND Family Medicine
DX: I67.82 Cerebral ischemia (principal); G93.89 Other specified disorders of brain; R41.82 Altered mental status, unspecified; R42 Dizziness and giddiness
CPT/HCPCS: 70551

== ENCOUNTER → 2024-06-12 | Outpatient (CLI) | payer BC ==
--- NOTE | 2024-06-15 18:51 | MM ---
Reason for Exam: Screening (asymptomatic). Last mammogram was performed 2 year(s) and 10 month(s) ago. Patient History: Menarche at age 13. First Full-Term at age 17. Postmenopausal. Maternal grandmother had breast cancer, age 70. Maternal aunt had breast cancer, age 31. Daughter had breast cancer, right, age 33. Risk Values: Tomasa 5 year model risk: 2.6%. NCI Lifetime model risk: 15.4%. Prior Study Comparison: 05/22/2018 Bilateral Diagnostic Mammogram, [facility]. 11/14/2018 Bilateral Screening Mammogram, [facility]. 08/29/2021 Bilateral Screening Mammogram, [facility]. Tissue Density: The breasts are heterogeneously dense, which may obscure small masses. Findings: Analyzed By CAD. Areas of bilaterally symmetric density remain unchanged. There is no suspicious group of microcalcifications or new suspicious mass in either breast. Overall Assessment: Benign, BI-RAD 2 Management: Screening Mammogram of both breasts in 1 year. . Patient should continue monthly self-breast exams. A clinical breast exam by your physician is recommended on an annual basis. This exam should not preclude additional follow-up of suspicious palpable abnormalities. Note on Tomasa scores and lifetime risk: 1. A Tomasa score greater than 3% is considered moderate risk. If this is the case, consider specialist referral to assess eligibility for a risk reducing agent. 2. If overall lifetime risk for the development of breast cancer is 20% or higher, the patient may qualify for future screening with alternating mammogram and breast MRI. [facility], , 06/15/2024 6:48 PM. Electronically signed and approved by: Jessie Olmedo M.D. Radiologist
== END | disposition home or self-care (01) ==
LOC: RADMAMWWP 11:10
PROVIDERS: ATTEND Family Medicine
DX: Z12.31 Encounter for screening mammogram for malignant neoplasm of breast
CPT/HCPCS: 77063; 77067